=== PATIENT | male | born 1940 | race Caucasian/White ===

== ENCOUNTER 2024-03-18 16:53 | Emergency (ER) | payer OTHER, SELFPAY ==
[2024-03-18 17:00] VITALS: BP 122/70; PULSE 96; TEMP 36.7; O2SAT 96; BMI 19.5
--- NOTE | 2024-03-18 17:10 | US_ITS ---
The [address] [address] Patient Name: SUGAR AUCÑA MRN: [id number] date: 1940 Sex: M Assigned Patient Location: ER Current Patient Location: ED.MAIN Accession/Order Number: [id number] Exam Date: 03/18/2024 18:22 Report Date: 03/18/2024 21:17 At the request of: PHILIPPE GUERRA Procedure: US venous doppler LE RT ULTRASOUND OF THE LOWER EXTREMITY VENOUS RIGHT HISTORY: Edema and pain . COMPARISON: None. TECHNIQUE: Multiple sonographic images are performed using grayscale, color Doppler and spectral Doppler of the extremity to evaluate vein patency. FINDINGS: There is no evidence of thrombus within the visualized veins. There is adequate phasic and spontaneous flow. There is adequate compression. There is adequate augmentation. No evidence of DVT within the visualized veins of the extremity. No popliteal fluid collection. US/US venous doppler LE RT IMPRESSION: No evidence of DVT in the visualized veins . Electronically authenticated by: LAMAR PAUL Date: 03/18/2024 21:17
--- NOTE | 2024-03-18 20:40 | ED_ITS ---
HPI HPI - General Adult General Chief complaint: Extremity Problem, Nontraumatic Stated complaint: LOWER PAIN Time Seen by Provider: 03/18/24 16:57 Source: patient Mode of arrival: walk-in Limitations: no limitations History of Present Illness HPI narrative: 84-year-old male presents to the emergency department with complaint of swelling to his right lower extremity. He is currently under evaluation of foot drop with concern about injury to his peroneal nerve. Neurology is evaluating him, and noted the swelling and sent him in to rule out blood clot. Patient denies any pain. He does have some numbness to the top of the foot which has been ongoing over the past 5 weeks in accordance with the foot drop. Denies any chest pain, shortness of breath. Quality:?as above Severity:?mild Timing:?2-3 days Context: Normal setting and activity? Modifying factors:?none Associated symptoms: swelling, redness Related Data Home Medications ?Medication ?Instructions ?Recorded ?Confirmed Lactobacillus 1 tab PO DAILY 03/18/24 03/18/24 acidophilus-Lactbacill.bifidus 1 billion cell oral wafer citalopram 20 mg tablet (Celexa) 20 mg PO DAILY 03/18/24 03/18/24 coenzyme Q10 100 mg capsule (Co 100 mg PO DAILY 03/18/24 03/18/24 Q-10) diltiazem HCl 180 mg 180 mg PO DAILY 03/18/24 03/18/24 tablet,extended release 24 hr (Cardizem LA) fluoride (sodium) 1.1 % dental 1 applic dental DAILY 03/18/24 03/18/24 paste (PreviDent 5000 Booster Plus) nitroglycerin 0.4 mg sublingual 0.4 mg sublingual Q5M 03/18/24 03/18/24 tablet pantoprazole 40 mg tablet,delayed 40 mg PO DAILY 03/18/24 03/18/24 release (Protonix) Allergies Allergy/AdvReac Type Severity Reaction Status Date / Time Iodinated Contrast Media Allergy Intermediate Rash Verified 03/18/24 17:00 Penicillins Allergy Intermediate Rash Verified 03/18/24 17:00 Opioid HPI Opioid Management Most Recent Opioid Data: Last Pain Scale 8 03/18/24 17:43 Review of Systems ROS Constitutional Denies: fatigue or malaise Cardiovascular Reports: edema; Denies: chest pain Respiratory Denies: shortness of breath Musculoskeletal Reports: extremity swelling; Denies: extremity pain or joint pain Integumentary/Breast Reports: redness; Denies: skin tenderness Neurological Reports: weakness in extremities (foot drop, chronic right); Denies: numbness in extremities Endocrine Denies: fatigue Hematologic/Lymphatic Reports: other (no anticoag use) [facility] Medical History (Updated 03/18/24 @ 21:39 by BLANCO Estrada) History of chronic back pain ?Z87.39 - Personal history of other diseases of the musculoskeletal system and connective tissue (ICD-10) History of diverticulosis ?Z87.19 - Personal history of other diseases of the digestive system (ICD-10) History of asthma ?Z87.09 - Personal history of other diseases of the respiratory system (ICD- 10) History of depression ?Z86.59 - Personal history of other mental and behavioral disorders (ICD-10) Surgical History (Updated 03/18/24 @ 17:12 by Brian Hackett) History of hernia repair ?Z98.890 - Other specified postprocedural states (ICD-10) ?Z87.19 - Personal history of other diseases of the digestive system (ICD-10) History of esophagogastroduodenoscopy (EGD) ?Z98.890 - Other specified postprocedural states (ICD-10) History of colonoscopy ?Z98.890 - Other specified postprocedural states (ICD-10) History of abdominal aortic aneurysm (AAA) repair ?Z98.890 - Other specified postprocedural states (ICD-10) Exam Constitutional Vital Signs, click to edit/add: Last Vital Signs Temp 98.1 F 03/18/24 17:00 Pulse 96 H 03/18/24 17:00 Resp 16 03/18/24 17:00 BP 122/70 03/18/24 17:00 Pulse Ox 96 03/18/24 17:00 O2 Del Method Room Air 03/18/24 17:00 Documenting provider has reviewed patient's vital signs: yes Common normals: no apparent distress, oriented x3 and alert General appearance: well developed Respiratory Common normals: normal respiratory effort and clear to auscultation bilaterally Cardio Common normals: regular rate, regular rhythm and no murmurs Peripheral pulses: dorsalis pedis pulses present bilateral dopplerable Extremity Other: Patient has notable edema to his ankle into his foot with some mild, light redness noted. Swelling is not pitting. Range of motion is limited due to the foot drop in his right foot, chronic over the past 5 weeks. He does have some numbness to the top of the foot. Otherwise neurologically intact. Range of motion of his knee is full. Neuro Common normals: oriented x3, no focal motor deficits and no sensory deficits noted Sensorium/orientation: alert Psych Common normals: mental status grossly normal and thought process normal Thought process: normal thought process Course Reevaluation(s) Reevaluation #1: In ED course, patient expressed desire to be discharged to home. Results had not returned. Explained to patient that if he does have a blood clot in his leg, location may determine that he needs further workup, treatment. Expressed apologies for the length of time on the ultrasound report. Radiology was contacted and stated that they were behind approximately 2 hours on ultrasound readings. Patient stated to nursing that he did not want to wait any longer and patient signed out ama. Time: 20:40 Vital Signs Vital signs: Vital Signs Temperature 98.1 F 03/18/24 17:00 Pulse Rate 96 H 03/18/24 17:00 Respiratory Rate 16 03/18/24 17:00 Blood Pressure 122/70 03/18/24 17:00 Pulse Oximetry 96 03/18/24 17:00 Oxygen Delivery Method Room Air 03/18/24 17:00 Temperature 98.1 F 03/18/24 17:00 Pulse Rate 96 H 03/18/24 17:00 Respiratory Rate 16 03/18/24 17:00 Blood Pressure 122/70 03/18/24 17:00 Pulse Oximetry 96 03/18/24 17:00 Oxygen Delivery Method Room Air 03/18/24 17:00 Medical Decision Making [facility] Narrative Medical decision making narrative: This is an 84-year-old gentleman who presents emergency department for DVT evaluation of right lower extremity swelling which has been present over the past 2 to 3 days. Denies chest pain, shortness of breath. On, afebrile, vital signs are stable. Exam, nontoxic, well-appearing patient in no distress. He has diffuse, nonpitting swelling noted to his ankle and foot. There is some mild redness to the top of his foot. He has numbness to the top of his foot. He cannot dorsiflex his foot due to likely problems with his peroneal nerve. He is currently under evaluation with neurology for this. Nonpalpable dorsalis pedal pulses Dopplerable bilaterally. Favor right lower extremity swelling Arterial occlusion less likely based on history and physical exam Disposition ? The patient was discharged AGAINST MEDICAL ADVICE. He did not want to wait for his result despite being told that if he has serious blood clot he requires further workup, evaluation, treatment and could be life-threatening. Plan: Patient will be discharged to home AMA. Condition at time of disposition: stable ? Advised to follow up with primary provider. Advised to return for any worsening and/or development of new, concerning signs or symptoms PLEASE NOTE: Portions of the medical record may have been produced using electronic c software developer and may contain errors with respect to translation of words which may not have been identified prior to finalization of the chart. Discharge Plan Discharge Stand Alone Forms: Portal Instructions Chief Complaint: Extremity Problem, Nontraumatic Clinical Impression: Right leg swelling Patient Disposition: Left Against Medical Advice Prescriptions / Home Meds: No Action citalopram [Celexa] 20 mg tablet 20 mg PO DAILY coenzyme Q10 [Co Q-10] 100 mg capsule 100 mg PO DAILY diltiazem HCl [Cardizem LA] 180 mg tablet extended release 24 hr 180 mg PO DAILY Lactobacillus acidoph-L. bifid 1 billion cell wafer 1 tab PO DAILY Rx Instructions: administer (preferably) with milk nitroglycerin 0.4 mg tablet, sublingual 0.4 mg sublingual Q5M Rx Instructions: do not exceed 3 doses per episode pantoprazole [Protonix] 40 mg tablet,delayed release (DR/EC) 40 mg PO DAILY fluoride (sodium) [PreviDent 5000 Booster Plus] 1.1 % paste 1 applic dental DAILY Print Language: Angolan Referrals: SUGAR HARIRSON [Primary Care Provider] - 1 week Discharge Date/Time: 03/18/24 20:47
== END 2024-03-18 20:47 | disposition left against medical advice (07) ==
PROVIDERS: Emergency Provider Emergency Medicine; PCP Internal Medicine
DX: M79.89 Other specified soft tissue disorders (principal); Z53.29 Procedure and treatment not carried out because of patient's decision for other reasons
CPT/HCPCS: 93971; 99284

== ENCOUNTER 2025-02-13 13:55 | Emergency (ER) | payer OTHER, SELFPAY ==
--- OUTSIDE RECORDS SUMMARY | 2020-12-03 06:00 | XMS_ITS | Continuity of Care Document ---
Author Organization [facility] Address [address] [place] [address] Phone Care Team Providers Care Head Field Hockey Coach Name Role Phone Deng Bernard Unavailable Unavailable Procedures Procedure Date Moderna COVID Vaccine Admin Dose 2 Moderna COVID-19 Vaccine Moderna COVID Vaccine Admin Dose 1 Moderna COVID-19 Vaccine OFFICE/OUTPATIENT VISIT, [facility] [facility], [place] Advance Directives Directive Yes / No Effective Date File Name No Information Encounters Encounter Description Practice Location Reason(s) For Visit Diagnoses Date Provider Providers Copied on Encounter [facility], [address], [place], [id number], [place] tel:[phone] COVID ECHD No Information Deanna Ely. [address], [place], [id number], [place]. tel:[phone] [facility], [address], [place], [address], [place] tel:[phone] COVID ECHD No Information Viscdeanne Ely. [address], [place], [id number], [place]. tel:[phone] OFFICE/OUTPATI ENT VISIT, EST [facility], [address], [place], [id number], [place] tel:[phone] [facility] No Information Viscdeanne Ely. [address], [place], [id number], [place]. tel:[phone] Family History Family Member Type Diagnosis Age At Onset No Information Immunizations Vaccine Date Status Comments Moderna COVID administered Source: New Im munization Record Moderna COVID administered Source: New Im munization Record Payers Payer name Insurance type Covered republican ID Authoriza tion(s) Medicare PPS [id number] Medicare PPS [id number] Medicare PPS [id number] Social History Type Description Quantity Date Captured Comments Alcohol Use Details Unknown Caffeine Use Details Unknown Tobacco Use Status No Information Smoking Status No Information Sex Male Sexual Orientation Straight or heterosexual Gender Identity Male Chief Complaint And Reason For Visit No Information Reason For Referral Reason For Referral No Information History Of Present Illness Encounter Date Complaint History Of Prese nt Illness No Information Functional Status Date Functional Assessmen t No Information Instructions Date Instruction Additional Infor mation No Information Assessments Type Assessment Date No Information Patient Care Teams Name Effective Dates (start - stop) Status Members No Information
--- OUTSIDE RECORDS SUMMARY | 2024-12-29 11:00 | XMS_ITS ---
Author Organization [facility] Address [address] [place] [address] [address] [place] [address] Care Team Providers Care Licensed Surveyor Name Role Phone Ismael Morales MD Primary Care Provider UnavailHarish Byrne Unavailable [phone] REASON FOR VISIT rfc Encounters Encounter Location Date Provider Diagnosis [facility] [address] [place] [place] [address] 12/29/2024 Harish Floyd Plan Of Treatment Next Appt Details Provider Name:Harish keene, 03/30/2025 03:30:00 PM, [address] [place] [address] [address], [address], [place], [address], Progress Notes * Ismael ACUÑA GDOB:[birth year] (84 yo M)Acc No.[id number]:12/29/2024 Patient: Jeanie CHRISTINATERESODENISEIsmael Provider: Candelario Floyd DPM :1940 A ge:84 Y S ex:Male Date:12/29/2024 Phone: Address:[address] [place] [address] [address], [id number] Pcp:Ismael Morales MD Subjective: * Chief Complaints: * 1 . Rfc. * Medical History: Objective: * Vitals: Assessment: Plan: * Treatment: * Images: * Electronic signature of Prashanth Floyd DPM on 02/13/2025 at 02:01 PM EDT Sign off status: Pending * Provider: Candelario Floyd DPM Date: 12/29/2024 Generated for Brandyi west/Fajoanie/eTransmitting on: 02/13/2025 02:01 PM EDT
--- OUTSIDE RECORDS SUMMARY | 2025-02-13 14:01 | XMS_ITS | Clinical Summary ---
Author Organization [facility] Address [address] [place] [address] Care Team Providers Care Battery Parts Assembler Name Role Phone Ismael Morales MD Primary Care Provider [phone] Allergies Active Allergy Reactions Criticality Noted Date Comments Contrast Dye Swelling High 11/27/2011 Penicillins Swelling 11/27/2011 Medications citalopram (CELEXA) 20 mg ORAL tablet Take 1 tablet by mouth once daily. 0 11/27/2011 Active Omeprazole 40 mg capsule Take 40 mg by mouth once daily. 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 PUD (peptic ulcer disease) 12/31/2015 Depression 12/31/2015 Lumbosacral spondylosis without myelopathy 01/02 Lumbago 01/03/2012 Family History Medical History Relation Comments Heart Father Hypertension Father lung cancer [Other] Father Cancer Mother Hyperlipidemia Mother Relation Status Comments Father Mother Social History Tobacco Use Types Packs/Day Years Used Date Smoking Tobacco: Some Days Cigarettes Alcohol Use Standard Drinks/Week Comments No 0 (1 standard drink = 0.6 oz pur e alcohol) Sex and Gender Information Value Date Recorded Sex Assigned at Not on file Legal Sex Male 8:08 AM EST Gender Identity Not on file Sexual Orientation Not on file 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 Not on file Not on file Not on file Last Filed Vital Signs Vital Sign Reading Time Taken Comments Blood Pressure 160/91 01/17/2017 4:30 PM EDT Pulse 81 01/17/2017 4:30 PM EDT Temperature 36.6 C (97.8 F) 01/17/2017 4:30 PM EDT Respiratory Rate 18 01/17/2017 4:30 PM EDT Oxygen Saturation 97% 01/09/2017 2:59 PM EDT Inhaled Oxygen Concentration - - Weight 77.1 kg (170 lb) 01/09/2017 2:59 PM EDT Height 172.1 cm (5' 7.76 ) 01/09/2017 2:59 PM ED T Body Mass Index 26.03 01/09/2017 2:59 PM EDT Plan of Treatment Health Maintenance Due Date Last Done Comments Anxiety Screening 02/22/1960 Depression Screening 02/22/1960 DTaP,Tdap,Td Vaccine (1 - Tdap) 1961 Pneumococcal Vaccine: 50+ (1 of 1 - PCV) 02/22/1992 Shingrix Vaccine (1 of 2) 02/22/1992 RSV Vaccine (1 - 1-dose 75+ series) 2017 Diabetes Screening 12/30/2018 12/31/2015 Covid-19 Vaccine ( season) 2024 Advance Directive Discussion 08/27/2024 Influenza Vaccine (Season Ended) 2025 Procedures Procedure Name Priority Date/Time Associated Diagnosis Comments COMPREHENSIVE METABOLIC PANEL Routine 12/31/2015 3:03 PM EDT MGUS (monoclonal gammopathy of unknown significance) from Last 3 Months or Most Recently Relevant to Health Maintenance Results * COMP METABOLIC PANEL (12/31/2015 3:03 PM EDT) Pathologist [facility] Protein, Total 7.2 6.0 - 8.4 g/dL 01/01/2016 2:58 AM EDT [facility] Albumin 4.2 3.5 - 5.0 g/dL 01/01/2016 2:58 AM EDT [facility] Calcium 9.3 8.5 - 10.5 mg/dL 01/01/2016 2:58 AM EDT [facility] Bilirubin, Total 0.2 0.0 - 1.5 mg/dL 01/01/2016 2:58 AM EDT [facility] Alkaline Phosphatase 88 40 - 150 U/L 01/01/2016 2:58 AM EDT [facility] AST 19 7 - 40 U/L 01/01/2016 2:58 AM EDT [facility] Glucose 92 65 - 100 mg/dL 01/01/2016 2:58 AM EDT [facility] BUN 15 10 - 25 mg/dL 01/01/2016 2:58 AM EDT [facility] Creatinine 1.19 0.70 - 1.40 mg/dL 01/01/2016 2:58 AM EDT [facility] Sodium 136 135 - 146 mmol/L 01/01/2016 2:58 AM EDT [facility] Potassium 4.7 3.5 - 5.0 mmol/L 01/01/2016 2:58 AM EDT [facility] Chloride 99 98 - 110 mmol/L 01/01/2016 2:58 AM EDT [facility] CO2 25 23 - 32 mmol/L 01/01/2016 2:58 AM [facility] Anion Gap 12 0 - 15 mmol/L 01/01/2016 2:58 AM [facility] ALT 12 5 - 50 U/L 01/01/2016 2:58 AM [facility] eGFR- >60 01/01/2016 2:58 AM [facility] eGFR-All Other Races 60 . 01/01/2016 2:58 AM [facility] Comment: eGFR (Estimated GFR) Units of measure: mL/min/1.73 meters squared eGFR is derived from the reexpressed MDRD Study equation using the following parameters: serum creatinine, age, gender and race. The creatinine assay has been calibrated to be traceable to IDMS. An eGFR <60 mL/min/1.73m2 for >3 months is consistent with chronic kidney disease. Refer to KDOQI guidelines for clinical interpretation. In patients with unstable renal function, e.g. those with acute kidney injury, the eGFR may not accurately reflect actual GFR. Blood specimen (specimen) BLOOD SPECIMEN / Unknown 12/31/2015 3:03 PM EDT 12/31/2015 3:05 PM EDT us Micheal Blount MD LABORATORY Final Result [facility] [address] [place] [address] from Last 3 Months or Most Recently Relevant to Health Maintenance Insurance [facility] MEDICARE Care Teams Battery Parts Assembler Relationship Specialty Start Date End Date Ismael Morales MD [address] [facility] [address] [place] [address] PCP - General Internal Medicine 10/09/11
--- OUTSIDE RECORDS SUMMARY | 2025-02-13 14:01 | XMS_ITS | Encounter Summary ---
Author Organization [facility] Address [address] [facility] [place] [address] Care Team Providers Care Fire Range Technician Name Role Phone Ismael Morales MD Unavailable [phone] Ismael Morales MD Primary Care Provider [phone] Saúl Wiggins MD Unavailable [phone] Harish Floyd MD Unavailable [phone] Jelly Stokes LPN Unavailable [phone] Reason for Visit * Reason Onset Date Comments Med Refill 01/30/2025 Encounter Details Date Type Department Care Team (Late st Contact Info) Description 01/30/2025 Refill [facility] [address] [facility] [address] [place] [id number] Angela Gupta LPN Depression, unspecified depression type Social History Tobacco Use Types Packs/Day Years Used Date Smoking Tobacco: Every Day Cigarettes Started: 1975 Alcohol Use Standard Drinks/Week Comments Not Currently 0 (1 standard drink = 0.6 oz pure alcohol) caffeine; 6 cups of coffee per day PHQ-2 Answer Date Recorded Patient Health Questionnaire-2 Score 2 09/17/2024 Sex and Gender Information Value Date Recorded Sex Assigned at Not on file Legal Sex Male 6:34 PM EDT Gender Identity Not on file Sexual Orientation Not on file 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, 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 Not on file Not on file Not on david e documented as of this encounter Plan of Treatment Not on file documented as of this encounter Visit Diagnoses Diagnosis Depression, unspecified depression type documented in this encounter Care Teams Fire Range Technician Relationship Specialty Start Date End Date Ismael Morales MD [address] [place] [address] PCP - Devoted 08/27/20 Ismael Morales MD [address] [place] [address] PCP - General Internal Medicine 01/18/23 Saúl Wiggins MD [address] [facility] [address] [place] [address] Referring Physician Cardiology 09/24/24 Harish Floyd MD [facility] [place] [address] Referring Physician Podiatry 09/24/24 Jelly Stokes LPN [address] [place] [address] Licensed Practical Nurse Family Medicine 09/24/24 Sofía Bedolla OD Ophthalmology 09/12/23 documented as of this encounter
--- OUTSIDE RECORDS SUMMARY | 2025-02-13 14:01 | XMS_ITS | Encounter Summary ---
Author Organization [facility] Address [address] [place] [address] Care Team Providers Care Jewel Oliving Machine Operator Name Role Phone Ismael Morales MD Primary Care Provider [phone] Source Comments In the event this information is protected by the Federal Confidentiality of Alcohol and Drug AbusePatient Records regulations: The Federal rules restrict any use of the information to criminally investigate or prosecute any alcohol or drug abuse patient.[facility] Encounter Details Date Type Department Care Team (Late st Contact Info) Description 05/01/2012 Patient Msg Medical Records [address] [place] [id number] Provider, [facility] RE: Patient Registration Completed Social History Tobacco Use Types Packs/Day Years Used Date Smoking Tobacco: Never Alcohol Use Standard Drinks/Week Comments No 0 (1 standard drink = 0.6 oz pur e alcohol) Sex and Gender Information Value Date Recorded Sex Assigned at Not on file Legal Sex Male 8:08 AM EST Gender Identity Not on file Sexual Orientation Not on file 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
--- OUTSIDE RECORDS SUMMARY | 2025-02-13 14:01 | XMS_ITS | Patient Health Record ---
Author Organization [facility] [employer] Address [facility] [place] [address] Care Team Providers Care Customer Success Director Name Role Phone Ismael Morales MD Primary Care Provider UnavailHarish Byrne Unavailable [phone] Allergies Allergen (clinical drug ingredient) Drug/Non Drug Allergy documented on EMR Reaction Allergy Type Onset Date Status Dye [employer] [employer] Blue 1 Unknown Drug Allergy Ac tive Penicillin Unknown Drug Allergy Active Reason For Referral No Information Medications Medication SIG (Take, Route, Frequency, Duration) Notes Start Date End Date Status Pantoprazole Sodium 40 MG 1 tablet Orall y Once a day for 30 day(s) Active Paxil 30 MG 1 tablet in the morn ing Orally Once a day Active Carvedilol 6.25 MG 1 tablet with food O rally Twice a day Active Vitamin D3 50 MCG (1999) 1 capsule Or ally Once a day for 30 day(s) Active CoQ10 200 MG as directed Orally Active Probiotic - as directed Orally Active Immunizations Vaccine Route Administration Date Status Comme nts Influenza Unknown 05/02/2021 Administered Social History Tobacco Use: Social History Observation Description Date Details (start date - stop date) Current Smoker NA - NA tobacco use Question Answer Notes Patient is a: current smoker 3/4 pack a day Problems Problem Type SNOMED Code ICD Code Onset Dates Problem Status W/U Status Risk Notes Problem Essential hypertension (44413082) Essential (primary) hypertension (I10) Active confirmed Problem Pain in limb (68822985) Pain in right toe(s) (M79.674) Active confirmed Problem Pain in limb (41227252) Pain in left toe(s) (M79.675) Active confirmed Problem Tinea unguium (463953811) Tinea unguium (B35.1) Active confirmed Vital Signs Blood pressure diastolic 74 mm Hg 12/29/2024 Height 68 in 12/29/2024 Blood pressure systolic 126 mm Hg 12/29/2024 Weight 140 lbs 12/29/2024 BMI 21.28 12/29/2024 Encounters Encounter Location Date Provider Diagnosis [facility] [place] [address] 06/26/2024 Harish Floyd Pain in left toe(s) M79.675 ; Pain in right toe(s) M79.674 and Tinea unguium B35.[address] [facility] [place] [address] 09/29/2024 Harish Floyd Pain in left toe(s) M79.675 ; Pain in right toe(s) M79.674 and Tinea unguium B35.[address] [facility] [place] [address] 12/29/2024 Harish Floyd Pain in left toe(s) M79.675 ; Pain in right toe(s) M79.674 and Tinea unguium B35.1 Assessments Encounter Date Diagnosis (ICD Code) Assessment Notes Treatment Notes Treatment Clinical Notes Section Notes 06/26/2024 Pain in left toe(s) (ICD-10 - M79.675) 09/29/2024 Pain in left toe(s) (ICD-10 - M79.675) 12/29/2024 Pain in left toe(s) (ICD-10 - M79.675) 12/29/2024 Pain in right toe(s) (ICD-10 - M79.674) 06/26/2024 Pain in right toe(s) (ICD-10 - M79.674) 09/29/2024 Pain in right toe(s) (ICD-10 - M79.674) 06/26/2024 Tinea unguium (ICD-10 - B35.1) 12/29/2024 Tinea unguium (ICD-10 - B35.1) 09/29/2024 Tinea unguium (ICD-10 - B35.1) Plan Of Treatment Next Appt Details Provider Name:Harish keene, 03/30/2025 03:30:00 PM, [address], [address], [place], [address], Insurance Providers Payer Name Payer Address Payer Phone Subscriber Number Group Number Insured Name Patient Relationship to Insured Coverage Start Date Coverage End Date [employer] [address] [place] [phone] [id number] Ismael Sue Self - patient is the insured Medical (General) History Medical History History ICD Code heart disease lung disease stomach ulcer high blood pressure rheumatoid arthritis GERD hiatal hernia fibromyalgia Neuropathy Surgical History Surgery Date(Month/Year) hernia 05/2021 AAA bowel torsion 01/17 Hospitalization History Reason Date(Month/Year) see sx hx hernia 2020
--- OUTSIDE RECORDS SUMMARY | 2025-02-13 14:01 | XMS_ITS | Clinical Summary ---
Author Organization [facility] Address [address] [place] [address] Care Team Providers Care Code Clerk Name Role Phone Ismael Morales MD Unavailable [phone] Ismael Morales MD Primary Care Provider [phone] Saúl Wiggins MD Unavailable Harish Floyd MD Unavailable [phone] Jelly Stokes LPN Unavailable [phone] Allergies Active Allergy Reactions Criticality Noted Date Comments Acetaminophen-Codeine Unknown Low 04/06/2021 Codeine Low 01/04/2024 Other Reaction(s): Hallucinating Iodinated Contrast Media Swelling High 11/27/2011 Lisinopril Low 01/22/2024 Penicillins Swelling Low 11/27/2011 Statins Unknown Low 01/24/2023 Medications coenzyme Q-10 100 MG capsule Take 2 capsules by mouth 1 (one) time each day. Active Lactobacillus (Probiotic Acidophilus) capsule Take 1 capsule by mouth 1 (one) time each day. Active nitroglycerin (Nitrostat) 0.[address] 0.4 mg under the tongue every 5 (five) minutes if needed for chest pain. Active PreviDent 5000 Booster Plus 1.1 % paste Take 1 strip by mouth 1 (one) time each day. 3 Active pantoprazole (ProtoNix) 40 MG EC tabletIndicatio ns:Gastro-esoph ageal reflux disease without esophagitis TAKE 1 TABLET BY MOUTH EVERY DAY 100 tablet 3 4 Active carvedilol (Coreg) 6.25 MG tablet Take 6.25 mg by mouth in the morning and 6.25 mg before bedtime. 4 Active triamcinolone (Kenalog) 0.1 % cream Apply 1 gram daily to scaly skin on trunk and extremities for 2 weeks as needed for flares of eczema 5 Active albuterol HFA 90 mcg/act inhaler Inhale 2 puffs every 4 (four) hours if needed for wheezing Active PARoxetine (Paxil) 30 MG tabletIndicatio ns:Depression, unspecified depression type Take 1 tablet (30 mg) by mouth in the morning. 30 tablet 5 5 025 Active PARoxetine (Paxil) 30 MG tabletIndicatio ns:Depression, unspecified depression type Take 1 tablet (30 mg) by mouth in the morning. 30 tablet 5 4 025 Discontin ued(Reord er) Active Problems Problem Noted Date Diagnosed Date Statin intolerance 12/26/2024 Thrombocytopenia 10/08/2024 Adverse reaction to statin medication 10/08/2024 Major depressive disorder, recurrent, moderate 0 10/08/2024 Mild aortic stenosis 02/16/2024 History of diverticulitis 01/30/2024 Iliac artery aneurysm 01/24/2023 Nicotine dependence, cigarettes, uncomplicated 0 01/24/2023 Chronic systolic congestive heart failure 2020 Obstructive sleep apnea syndrome 12/09/2020 Gastroesophageal reflux disease 09/26/2020 PAF (paroxysmal atrial fibrillation) 09/14/2020 Solitary pulmonary nodule 06/22/2020 Chronic obstructive pulmonary disease 06/12/2020 Mitral regurgitation 10/01/2019 Coronary artery disease 01/21/2018 MGUS (monoclonal gammopathy of unknown significa nce) 12/31/2015 PUD (peptic ulcer disease) 12/31/2015 Abdominal aortic aneurysm without rupture 2014 Mixed hyperlipidemia 05/28/2015 Primary osteoarthritis involving multiple joints 05/28/2015 Lumbosacral spondylosis without myelopathy 01/02 Resolved Problems Problem Noted Date Diagnosed Date Resolved Date Acute respiratory failure with hypoxia 01/30/2024 01/30/2024 Acute hyponatremia 01/30/2024 Complete obstruction of small intestine 01/30/2024 01/30/2024 Incarcerated inguinal hernia 01/30/2024 01/30/2024 Recurrent right inguinal hernia 01/30/2024 01/30/2024 Asthma 01/24/2023 09/14/2023 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 09/14/2023 Diverticulitis 01/24/2023 09/14/2023 Increased frequency of urination 01/24/2023 09/14/2023 Memory loss 01/24/2023 09/14/2023 Nocturia 01/24/2023 09/14/2023 Emphysema, unspecified 04/05/202109/14 Diverticulitis of colon 09/18/202008/27 Hydronephrosis 08/31/2020 09/14/2023 Hydroureter 08/31/2020 09/14/2023 Perforated diverticulum of large intestine 08/31/2020 09/14/2023 Meralgia paresthetica 04/12/20202023 Ischemic cardiomyopathy 10/06/201908/27 Depression 12/31/2015 09/14/2023 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 [address] Jelly Stokes LPN 01/30/2025 Refill [facility] [address] [facility] [address] [place] [address] Angela Gupta LPN Depression, unspecified depression type 12/22/2024 11:15 AM EDT Ancillary Procedure [facility] XRAY [address] [facility] [address] [place] [address] 12/22/2024 10:15 AM EDT Office Visit [facility] [address] [facility] [address] [place] [address] Ismael Morales MD Thrombocytopenia (Primary Dx); SOB (shortness of breath); Ulnar neuropathy of left upper extremity; Major depressive disorder, recurrent, moderate (HCC) 12/22/2024 Travel 12/17/2024 Travel 12/16/2024 Patient Outreach [facility] [address] [place] [address] StokesJellyHÉCTOR 11/13/2024 3:30 PM EDT Office Visit [facility] [address] [place] [address] Ismael Morales MD Thrombocytopenia (Primary Dx) 11/13/2024 Travel from Last 3 Months Immunizations Immunization Administration Dates Next Due Influenza Whole 12/22/2002 Influenza, High Dose Seasona l, Preservative Free 07/31/2022,05/23/2021,06/28/2017,06/26,05/20/2014 Influenza, High-dose Seasona l, Quadrivalent, Preservative Free 05/21/2023 Influenza, Unspecified 05/27/2021,05/27/2020 Influenza, seasonal, injecta ble, preservative free 06/01/2015 Influenza, seasonal, intrade rmal, preservative free 05/07/2013 Influenza, trivalent, adjuvanted 05/28/2020,04/27,07/02/2018 Moderna SARS-CoV-2 Vaccination 12/02/2020,2020 Pneumococcal Conjugate PCV 13 06/01/2015 Pneumococcal Polysaccharide PPSV23 05/31/2009 RSV, recombinant, protein icsneros bunit RSVpreF, adjuvant reconstitu, 120mcg/0.5mL, PF (Arexvy) 05/21/2023 Td (adult), unspecified 12/22/2002 Zoster, live 08/27/2014,10/27/2010 Family History Medical History Relation Name Comments Heart disease Father Hypertension Father Lung cancer Father Cancer Mother Hyperlipidemia Mother Relation Name Status Comments Father Mother Social History Tobacco Use Types Packs/Day Years Used Date Smoking Tobacco: Every Day Cigarettes Started: 1973 Tobacco Cessation:Ready to Q uit: Not Asked; Counseling Given: Not Answered Alcohol Use Standard Drinks/Week Comments Not Currently [...] 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, 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 Not on file Not on file Not on david e Last Filed Vital Signs Vital Sign Reading Time Taken Comments Blood Pressure 132/78 12/22/2024 10:07 AM EDT Pulse 69 12/22/2024 10:07 AM EDT Temperature 36.4 C (97.5 F) 01/30/2024 9:42 AM EDT Respiratory Rate 16 03/18/2024 2:25 PM EDT Oxygen Saturation 97% 12/22/2024 10:07 AM EDT Inhaled Oxygen Concentration - - Weight 62.4 kg (137 lb 8 oz) 12/22/2024 10:07 AM EDT Height 170.2 cm (5' 7 ) 12/22/2024 10:07 AM EDT Body Mass Index 21.54 12/22/2024 10:07 AM EDT Plan of Treatment Health Maintenance Due Date Last Done Comments Pneumococcal Vaccine: 65+ Years Completed 5, 05/31/2009 Influenza Vaccine Completed 06/18/2024, , 07/31/2022, Additional history exists Procedures Procedure Name Priority Date/Time Associated Diagnosis Comments XR CHEST 2 VIEWS Routine 12/22/2024 11:3 1 AM EDT SOB (shortness of breath) HCV NEG INTERP REFLEX Routine 12/01/2024 1:16 PM EDT HEPATITIS PANEL, ACUTE Routine 12/01/2024 1:16 PM EDT Thrombocytopenia CBC (INCLUDES DIFF/PLT) Routine 12/01/2024 1:16 PM EDT Thrombocytopenia from Last 3 Months Results * XR chest 2 views (12/22/2024 11:31 AM EDT) Anatomical Region Laterality Modality Chest Radiographic Peggy ging 12/22/2024 12:4 3 PM EDT Narrative 12/22/2024 12:43 PM EDT Title of exam: XR CHEST 2 VIEWS Reason for exam: Shortness of breath Comparison: None 2 images. The cardiac and mediastinal silhouettes are normal for size and position. Thoracic aorta is tortuous with dense atherosclerosis. There is hyperinflation and flattening of the hemidiaphragms bilaterally. No large pleural effusion, focal lung opacity or pneumothorax. Regional skeleton and pleural surfaces without acute change. Chronic appearing right-sided rib fractures are noted with callus formation. IMPRESSION: 1. Emphysema versus air trapping. 2. Chronic right-sided chest wall trauma. 3. Marked atherosclerosis and tortuosity of the thoracic aorta. Dictated on: 12/22/2024 10:40 AM 12/22/2024 9:38 AM This report has been electronically signed and approved by the interpreting Radiologist. This report is generated using voice recognition reporting ([employer]). On occasion, [email or web address] erroneously drops words from the report or replaces the spoken word with a similar sounding word. Please call with any questions/concerns regarding the report. Procedure Note Justin White MD - 12/22/2024 Title of exam: XR CHEST 2 VIEWS Reason for exam: Shortness of breath Comparison: None 2 images. The cardiac and mediastinal silhouettes are normal for size andposition. Thoracic aorta is tortuous with dense atherosclerosis. There ishyperinflation and flattening of the hemidiaphragms bilaterally. No largepleural effusion, focal lung opacity or pneumothorax. Regional skeletonand pleural surfaces without acute change. Chronic appearing right-sidedrib fractures are noted with callus formation. IMPRESSION: 1. Emphysema versus air trapping. 2. Chronic right-sided chest wall trauma. 3. Marked atherosclerosis and tortuosity of the thoracic aorta. Dictated on: 12/22/2024 10:40 AM 12/22/2024 9:38 AM This report has been electronically signed and approved by theinterpreting Radiologist. This report is generated using voice recognition reporting ([employer]).On occasion, [email or web address] erroneously drops words from the report orreplaces the spoken word with a similar sounding word. Please call withany questions/concerns regarding the report. us Ismael Morales MD IMG XR PROCEDURES Final Result * HCV Neg Interp Reflex (12/01/2024 1:16 PM EDT) [facility] HCV Neg Interp Comment [facility] Comment: Not infected with HCV unless early or acute infection is suspected (which may be delayed in an immunocompromised individual), or other evidence exists to indicate HCV infection. 12/01/2024 1:16 PM EDT 12/01/2024 Narrative [facility] - 12/02/2024 6:06 AM EDT Performed at: 01 - [address] [id number] Review Consultant: Marques Gentile PhD, Phone: [phone] Ismael Morales MD LAB BLOOD ORDERABLES Final Resu lt Performing Organization Address [facility] Co de Phone Number [facility] * Hepatitis panel, acute (12/01/2024 1:16 PM EDT) [facility] Hep A IgM Ab Negative Negative [facility] Comment: A negative anti-HAV IgM result suggests no recent or current HAV infection. Hep B Surf Ag Scr Negative Negative [facility] Hep B Core IgM Ab Negative Negative [facility] HCV Ab Non Reactive Non Reactive [facility] Blood Venous blood specimen / Unknown 12/01/2024 1:16 PM EDT 12/01/2024 Narrative [facility] - 12/02/2024 6:06 AM EDT Performed at: [address] [id number] Review Consultant: Marques Gentile PhD, Phone: [phone] Ismael Morales MD LAB BLOOD ORDERABLES Final Resu lt Performing Organization Address City/[facility]/ZIP Co de Phone Number [facility] * (ABNORMAL) CBC and differential (12/01/2024 1:16 PM EDT) [facility] WBC 5.6 3.4 - 10.8 x10E3/uL [facility] RBC 5.22 4.14 - 5.80 x10E6/uL [facility] Hgb 15.0 13.0 - 17.7 g/dL [facility] Hct 47.5 37.5 - 51.0 % [facility] MCV 91 79 - 97 fL [facility] MCH 28.7 26.6 - 33.0 pg [facility] MCHC 31.6 31.5 - 35.7 g/dL [facility] RDW 12.9 11.6 - 15.4 % [facility] Platelets 127(L) 150 - 450 x10E3/uL [facility] Neutrophils 50 Not Estab. % [facility] Lymphs 40 Not Estab. % [facility] Monocytes 8 Not Estab. % [facility] Eos 1 Not Estab. % [facility] Basos 1 Not Estab. % [facility] Neutrophils Abs 2.8 1.4 - 7.0 x10E3/uL [facility] Lymphs Abs 2.2 0.7 - 3.1 x10E3/uL [facility] MonocytesAbs 0.5 0.1 - 0.9 x10E3/uL [facility] Eos Abs 0.1 0.0 - 0.4 x10E3/uL [facility] Baso Abs 0.1 0.0 - 0.2 x10E3/uL [facility] Immature Granulocytes 0 Not Estab. % [facility] Immature Grans Abs 0.0 0.0 - 0.1 x10E3/uL [facility] Blood Venous blood specimen / Unknown 12/01/2024 1:16 PM EDT 12/01/2024 Narrative [facility] - 12/02/2024 6:06 AM EDT Performed at: - [facility] [address] [id number] Review Consultant: Marques Gentile PhD, Phone: [phone] us Ismael Morales MD LAB BLOOD ORDERABLES Final Resu lt [facility] from Last 3 Months Insurance [facility] Care Teams Code Clerk Relationship Specialty Start Date End Date Ismael Morales MD [address] [place] [address] PCP - Devoted 08/27/20 Ismael Morales MD [address] [place] [address] PCP - General Internal Medicine 01/18/23 Saúl Wiggins MD [address] [facility] [address] [place] [address] Referring Physician Cardiology 09/24/24 Harish Floyd MD [facility] [place] [address] Referring Physician Podiatry 09/24/24 Jelly Stokes LPN [address] [place] [address] Licensed Practical Nurse Family Medicine 09/24/24 Sofía Bedolla OD Ophthalmology 09/12/23
--- OUTSIDE RECORDS SUMMARY | 2025-02-13 14:01 | XMS_ITS | Encounter Summary ---
Author Organization [facility] Address [address] [place] [address] Care Team Providers Care Information Delivery Analyst Name Role Phone Sugar Morales MD Unavailable [phone] Sugar Morales MD Primary Care Provider [phone] Brandon Wiggins MD Unavailable [phone] Harish Floyd MD Unavailable [phone] Jelly Stokes LPN Unavailable [phone] Encounter Details Date Type Department Care Team (Late st Contact Info) Description 07/03/2024 Clinisync Result Encounter [facility] External Department Unsolicited Provider, Generic External Data Social History Tobacco Use Types Packs/Day Years Used Date Smoking Tobacco: Every Day Cigarettes Started: 1975 Alcohol Use Standard Drinks/Week Comments Not Currently 0 (1 standard drink = 0.6 oz pure alcohol) caffeine; 6 cups of coffee per day Sex and Gender Information Value Date Recorded Sex Assigned at Not on file Legal Sex Male 6:34 PM EDT Gender Identity Not on file Sexual Orientation Not on file 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, 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 Not on file Not on file Not on david e documented as of this encounter Plan of Treatment Not on file documented as of this encounter Procedures Procedure Name Priority Date/Time Associated Diagnosis Comments TRANSTHORACIC ECHO (TTE) LIMITED 07/03/2024 1:48 PM EST documented in this encounter Results * Transthoracic echo (TTE) limited (07/03/2024 1:48 PM EST) Anatomical Region Laterality Modality Heart Ultrasound 07/03/2024 1:48 PM EST Narrative 07/04/2024 6:25 PM EST [facility] [address] [facility] [address], [address], [place] [address] TRANSTHORACIC ECHOCARDIOGRAM REPORT Patient Name: SUGAR PINAMALATHIDENISE Reading Physician: [id number] Brandon Wiggins MD, [facility] Study Date: 07/03/2024 Ordering Provider: [id number] BRANDON WIGGINS MRN/PID: [id number] Fellow: Nurse: Date of /Age: 6 1940 / 84 years Test Operator: Sangita Morrell RDCS, RVT Gender Assigned at Additional Staff: : Height: 175.26 cm Admit Date: Weight: 57.15 kg Admission Status: BSA / BMI: 1.70 m2 / 18.61 Department Location: [facility] kg/[address] Blood Pressure: 130 /70 mmHg Study Type: TRANSTHORACIC ECHO (TTE) LIMITED Diagnosis/ICD: Atherosclerotic heart disease of [place] coronary artery without angina pectoris-I25.10; 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 PHYSICIAN INTERPRETATION: Left Ventricle: Left ventricular ejection fraction is moderately decreased, by visual estimate at 30%. There is severe eccentric left ventricular hypertrophy. Wall motion is abnormal. The left ventricular cavity size is mildly dilated. There is mild increased septal and normal posterior left ventricular wall thickness. Left ventricular diastolic filling was not assessed. Severe hypokinesis involving the entire inferior and lateral valdez. Left Atrium: The left atrium is mildly dilated. Right Ventricle: The right ventricle is normal in size. There is normal right ventricular global systolic function. Right Atrium: The right atrium is normal in size. Aortic Valve: The aortic valve is trileaflet. There is moderate aortic valve cusp calcification. Aortic valve regurgitation was not assessed. Mitral Valve: The mitral valve is moderately thickened. Mitral valve regurgitation was not assessed. Tricuspid Valve: The tricuspid valve is structurally normal. Tricuspid regurgitation was not assessed. Pulmonic Valve: The pulmonic valve is structurally normal. The pulmonic valve regurgitation was not assessed. Pericardium: No pericardial effusion noted. Aorta: The aortic root is normal. Systemic Veins: The inferior vena cava was not assessed. CONCLUSIONS: 1. Left ventricular ejection fraction is moderately decreased, by visual estimate at 30%. 2. Abnormal wall motion. 3. Left ventricular cavity size is mildly dilated. 4. Severe hypokinesis involving the entire inferior and lateral valdez. 5. There is normal right ventricular global systolic function. 6. The mitral valve is moderately thickened. 7. There is moderate aortic valve cusp calcification. QUANTITATIVE DATA SUMMARY: 2D MEASUREMENTS: Normal Ranges: Ao Root d: 3.20 cm (2.0-3.7cm) LAs: 4.10 cm (2.7-4.0cm) RVIDd: 2.95 cm (0.9-3.6cm) IVSd: 1.22 cm (0.6-1.1cm) LVPWd: 0.93 cm (0.6-1.1cm) LVIDd: 6.11 cm (3.9-5.9cm) LVIDs: 5.39 cm LV Mass Index: 165.0 g/m2 LV % FS 11.8 % LV SYSTOLIC FUNCTION BY 2D PLANIMETRY (MOD): Normal Ranges: EF-A4C View: 36 % (>=55%) EF-A2C View: 28 % EF-Biplane: 31 % EF-Visual: 30 % LV EF Reported: 30 % AORTIC VALVE: Normal Ranges: LVOT Diameter: 2.40 cm (1.8-2.4cm) [id number] Brandon Wiggins MD, [facility] Electronically signed on 07/04/2024 at 6:25:25 PM Final Procedure Note Radiology, Radiologist, - 07/04/[address], Suite [facility], [place] [address] TRANSTHORACIC ECHOCARDIOGRAM REPORT Patient Name: SUGAR Smith Physician: Josselin Juan FACC Study Date: 07/03/2024 Ordering Provider: JOSSELIN WIGGINS MRN/PID: [id number] Fellow: Nurse: Date of /Age: 6 1940 / 84 years Test Operator: Davis WRIGHT RVT Gender Assigned at M Additional Staff: : Height: 175.26 cm Admit Date: Weight: 57.15 kg Admission Status: BSA / BMI: 1.70 m2 / 18.61 Department Location: [facility]/[address] Blood Pressure: 130 /70 mmHg Study Type: TRANSTHORACIC ECHO (TTE) LIMITED Diagnosis/ICD: Atherosclerotic heart disease of [place] coronary arterywithout angina pectoris-I25.10; Ischemic cardiomyopathy-I25.5 Indication: Aortic Stenosis, Paroxysmal Atrial Fibrillation,Hyperlipidemia, PTCA-2020, Tobacco Abuse, AAA-EVAR, CKD-Stage III,Noncompliance CPT Codes: Echo Limited-44167 Study Detail: The following Echo studies were performed: 2D and M-Mode. PHYSICIAN INTERPRETATION: Left Ventricle: Left ventricular ejection fraction is moderatelydecreased, by visual estimate at 30%. There is severe eccentric leftventricular hypertrophy. Wall motion is abnormal. The left ventricularcavity size is mildly dilated. There is mild increased septal and normalposterior left ventricular wall thickness. Left ventricular diastolicfilling was not assessed. Severe hypokinesis involving the entire inferiorand lateral valdez. Left Atrium: The left atrium is mildly dilated. Right Ventricle: The right ventricle is normal in size. There is normalright ventricular global systolic function. Right Atrium: The right atrium is normal in size. Aortic Valve: The aortic valve is trileaflet. There is moderate aorticvalve cusp calcification. Aortic valve regurgitation was not assessed. Mitral Valve: The mitral valve is moderately thickened. Mitral valveregurgitation was not assessed. Tricuspid Valve: The tricuspid valve is structurally normal. Tricuspidregurgitation was not assessed. Pulmonic Valve: The pulmonic valve is structurally normal. The pulmonicvalve regurgitation was not assessed. Pericardium: No pericardial effusion noted. Aorta: The aortic root is normal. Systemic Veins: The inferior vena cava was not assessed. CONCLUSIONS: 1. Left ventricular ejection fraction is moderately decreased, by visualestimate at 30%. 2. Abnormal wall motion. 3. Left ventricular cavity size is mildly dilated. 4. Severe hypokinesis involving the entire inferior and lateral valdez. 5. There is normal right ventricular global systolic function. 6. The mitral valve is moderately thickened. 7. There is moderate aortic valve cusp calcification. QUANTITATIVE DATA SUMMARY: 2D MEASUREMENTS: Normal Ranges: Ao Root d: 3.20 cm (2.0-3.7cm) LAs: 4.10 cm (2.7-4.0cm) RVIDd: 2.95 cm (0.9-3.6cm) IVSd: 1.22 cm (0.6-1.1cm) LVPWd: 0.93 cm (0.6-1.1cm) LVIDd: 6.11 cm (3.9-5.9cm) LVIDs: 5.39 cm LV Mass Index: 165.0 g/m2 LV % FS 11.8 % LV SYSTOLIC FUNCTION BY 2D PLANIMETRY (MOD): Normal Ranges: EF-A4C View: 36 % (>=55%) EF-A2C View: 28 % EF-Biplane: 31 % EF-Visual: 30 % LV EF Reported: 30 % AORTIC VALVE: Normal Ranges: LVOT Diameter: 2.40 cm (1.8-2.4cm) [id number] Brandon Wiggins MD, [facility] Electronically signed on 07/04/2024 at 6:25:25 PM Final us Generic External Data Provider CV ECHO PROCEDURE S Final Result documented in this encounter Visit Diagnoses Not on filedocumented in this encounter Care Teams Information Delivery Analyst Relationship Specialty Start Date End Date Sugar Morales MD [address] [place] [address] PCP - Devoted 08/27/20 Sugar Morales MD [address] [place] [address] PCP - General Internal Medicine 01/18/23 Brandon Wiggins MD [address] [facility] [address] [place] [address] Referring Physician Cardiology 09/24/24 Harish Floyd MD [facility] [place] [address] Referring Physician Podiatry 09/24/24 Jelly Stokes, HÉCTOR [address] [place], [place] [id number] Licensed Practical Nurse Family Medicine 09/24/24 Sofía Bedolla OD Ophthalmology 09/12/23 documented as of this encounter
--- OUTSIDE RECORDS SUMMARY | 2025-02-13 14:01 | XMS_ITS ---
Author Organization [facility] Address [address] [facility] [place] [address] Care Team Providers Care Security Professionals Name Role Phone Ismael Morales MD Unavailable [phone] Ismael Morales MD Primary Care Provider [phone] Saúl Wiggins MD Unavailable [phone] Harish Floyd MD Unavailable [phone] Jelly Stokes LPN Unavailable [phone] Chronic Care Management (CCM) Status:Enrolled (Active) Start date:01/11/2023 Enrollment date:01/11/2023 Overview 11/07/23, 9:23 AM - Kerry Wells LPN- Patient gives verbal consent to be enrolled in CCM Program andunderstands there could be a bill for this service. Case Team Name Relationship Phone Jelly Stokes LPN(Responsible Staff) Clinical Advocate [phone] Continued Care and Services Coordination
--- OUTSIDE RECORDS SUMMARY | 2025-02-13 14:01 | XMS_ITS | Encounter Summary ---
Author Organization [facility] Address [address] [place] [address] Care Team Providers Care Horse Racing Manager Name Role Phone Ismael Morales MD Unavailable [phone] Ismael Morales MD Primary Care Provider Saúl Wiggins MD Unavailable [phone] Harish Floyd MD Unavailable [phone] Jelly Stokes LPN Unavailable Encounter Details Date Type Department Care Team (Late st Contact Info) Description 06/28/2023 Orders Only [facility] [address] [place] [id number] A, Unknown Practice [address] [place], [place] [id number] Social History Tobacco Use Types Packs/Day Years Used Date Smoking Tobacco: Every Day Cigarettes Alcohol Use Standard Drinks/Week Comments Not Currently 0 (1 standard drink = 0.6 oz pur e alcohol) Sex and Gender Information Value Date Recorded Sex Assigned at Not on file Legal Sex Male 6:34 PM EDT Gender Identity Not on file Sexual Orientation Not on file documented as of this encounter Plan of Treatment Not on file documented as of this encounter Procedures Procedure Name Priority Date/Time Associated Diagnosis Comments TRANSTHORACIC ECHO (TTE) COMPLETE Routine 06/27/2023 8:52 AM EDT US ABDOMINAL AORTA - GENERIC Routine 06/27/2023 8:32 AM EDT documented in this encounter Results * Transthoracic echo (TTE) complete (06/27/2023 8:52 AM EDT) Anatomical Region Laterality Modality Heart Ultrasound us Unknown Practice A CV ECHO PROCEDURES Final Resu lt * US ABDOMINAL AORTA - GENERIC (06/27/2023 8:32 AM EDT) Anatomical Region Laterality Modality Radiographic Peggy ging us Unknown Practice A IMG XR PROCEDURES Final Resul t documented in this encounter Visit Diagnoses Not on filedocumented in this encounter Care Teams Horse Racing Manager Relationship Specialty Start Date End Date Ismael Morales MD [address] [place] [address] PCP - Devoted 08/27/20 Ismael Morales MD [address] [place] [address] PCP - General Internal Medicine 01/18/23 Saúl Wiggins MD [address] [facility] [address] [place] [address] Referring Physician Cardiology 09/24/24 Harish Floyd MD [facility] [place] [address] Referring Physician Podiatry 09/24/24 Jelly Stokes LPN [address] [place] [address] Licensed Practical Nurse Family Medicine 09/24/24 Sofía Bedolla OD Ophthalmology 09/12/23 documented as of this encounter
--- OUTSIDE RECORDS SUMMARY | 2025-02-13 14:01 | XMS_ITS | Encounter Summary ---
Author Organization [facility] Address [address] [address] [place] [address] Care Team Providers Care Side Guider Name Role Phone Ismael Morales MD Unavailable [phone] Ismael Morales MD Primary Care Provider [phone] Saúl Wiggins MD Unavailable [phone] Harish Floyd MD Unavailable [phone] Jelly Stokes LPN Unavailable [phone] Encounter Details Date Type Department Care Team (Late st Contact Info) Description 06/27/2023 External Result Encounter [facility] External Department Unsolicited Ismael Morales MD [address] [facility] [address] [place] [address] Social History Tobacco Use Types Packs/Day Years [...] Procedure Name Priority Date/Time Associated Diagnosis Comments CONGENITAL TRANSTHORACIC ECHO (TTE) COMPLETE 06/27/2023 1:32 PM EDT documented in this encounter Results * Congenital transthoracic echo (TTE) complete (06/27/2023 1:32 PM EDT) Anatomical Region Laterality Modality Heart Ultrasound 06/27/2023 1:32 PM EDT Narrative 07/18/2023 3:16 PM [facility] Main [place] [address] [place] [address] Echocardiogram Signed Patient: Ismael Andres MR#: [id number] : 1940 Acct:[id number] Age/Sex: 83 / M ADM Date: 06/27/23 Loc: Room: Type: [facility] Attending Dr: Ismael Morales MD Ordering Provider: Ismael Morales MD Date of Service: 06/27/23/ ECH/ECH echo transthoracic: AAA. CAD. 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 Afib. Copies to: MD Ismael Rogers MD Weight: 150 lb Performed By: Toya Watkins LUIS BSA: 1.8 m2 HR: 67 Reason For Study: AAA. CAD. 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 Afib. History: HTN, Scarlet Fever, Smoker, COPD, CAD, Stents, AAA Repair, COVID-19. Interpretation Summary The LV ejection fraction is moderately decreased . Ejection Fraction = 30-35%. The left ventricle is mildly dilated. There is moderate global hypokinesis of the left ventricle. Mild aortic regurgitation. There is mild mitral regurgitation. A variety of Doppler measurements indicate impaired left ventricular relaxation, which is associated with grade I/IV or mild diastolic dysfunction. Compared to prior study, there is no significant change. Procedure/Quality: A two-dimensional transthoracic echocardiogram with color flow and Doppler was performed. Left Ventricle: The left ventricular size is normal. The left ventricle is mildly dilated. The LV ejection fraction is moderately decreased . Ejection Fraction = 30-35%. A variety of Doppler measurements indicate impaired left ventricular relaxation, which is associated with grade I/IV or mild diastolic dysfunction. There is moderate global hypokinesis of the left ventricle. Left Atrium: The left atrium appears normal in size. Right Atrium: The right atrium appears normal in size. Right Ventricle: The right ventricle is normal in size and function. Aortic Valve: The aortic valve is moderately sclerotic. Mild aortic regurgitation. Mitral Valve: There is mild mitral annular calcification. The mitral valve is moderately sclerotic. There is mild mitral regurgitation. Tricuspid Valve: The tricuspid valve is not well visualized. Pulmonic Valve: The pulmonic valve is not well visualized. Arteries: The aortic root is normal size. IVC/Hepatic Viens: The inferior vena cava is normal in size, with a normal collapsibility index. Measurements with Normals IVSd: 1.1 cm (0.7-1.1 cm)LVIDd: 6.3 cm (3.7-5.4 cm) LVPWd: 1.00 cm (0.7-1.1 cm)LVIDs: 5.2 cm (2.3-3.6 cm) LA dimension: 4.4 cm (2.3-4.0 cm)Ao root diam: 3.6 cm(2.0-3.6 cm) asc Aorta Diam: 3.4 cm(2.1-3.4cm) Doppler with Normals LV V1 max: 102.4 cm/sec (0.7-1.7m/s)MV E max luis felipe: 56.6 cm/sec(0.8-1.3m/s) MV A max luis felipe: 92.1 cm/sec(0.0-0.0m/s) MV E/A: 0.61 (<1.5) MMode/2D Measurements Calculations TAPSE: 2.5 cm FS: 17.3 % Ao root area: LVOT diam: 2.4 cm RV S Luis Felipe: EDV(Teich): 10.3 cm2 LVOT area: 4.4 cm2 10.0 cm/sec 202.9 ml ESV(Teich): 131.2 ml EF(Teich): 35.4 % __ LVLd ap4: 9.4 cm SV(MOD-sp4): LAV(MOD-sp4): LA A2 area: 20.3 cm2 EDV(MOD-sp4): 77.0 ml 50.9 ml 217.0 ml LAV(MOD-sp2): LA A4 area: 19.4 cm2 LVLs ap4: 9.2 cm 57.4 ml LA length (vol): ESV(MOD-sp4): 5.6 cm 140.0 ml LA vol: 59.4 ml EF(MOD-sp4): 35.5 % LA vol index: 33.2 ml/m2 Doppler Measurements Calculations MV dec time: MV max PG: E/E' lat: 10.9 MV dec slope: 0.29 sec 134.0 mmHg E/E' med: 11.5 198.3 cm/sec2 __ Ao V2 max: LV V1 max PG: MR max luis felipe: RAP systole: 3.0 mmHg 136.4 cm/sec 4.2 mmHg 578.4 cm/sec Ao max PG: LV V1 mean PG: MR max P.4 mmHg 2.3 mmHg 134.0 mmHg Ao mean PG: LV V1 mean: 3.8 mmHg 72.4 cm/sec Ao V2 mean: LV V1 VTI: 19.3 cm 91.4 cm/sec Ao V2 VTI: 23.2 cm MARLEN(I,D): 3.7 cm2 MARLEN(V,D): 3.3 cm2 Measurements from QLAB CI (): ED Mass (): LAEF (): 22.0 % BSA (): 1.8 m2 213.0 grams 2.5 l/min/m2 __ PAULO (): LAVmax (): LAVmin (): 82.0 mlPat Height (): 59.0 ml/m2 105.0 ml 170.0 cm __ Pat Weight (): 68.2 kg QLAB Heart Model EDV ()_phl: 249.0 ml EF ()_phl: 30.0 % ED Current ()_phl: 60.0 % ESV ()_phl: 175.0 ml HR ()_phl: 59.0 BPMES Current ()_phl: 30.0 % LV Length ED ()_phl: 99.0 mmSV ()_phl: 75.0 ml ED Default ()_phl: 60.0 % LV Length ES ()_phl: 90.0 mm ES Default ()_phl: 30.0 % Transcribed By: NAYELI Performed At: 06/27/23 1332 Signed By: Juanita Mcfarland MD 06/27/23 1756 Procedure Note Juanita Mcfarland MD - 07/18/2023 [facility] Main [place] [address] [place], [place] [id number] Echocardiogram Signed Patient: Ismael Andres GMR#: [id number] : 2Acct:[id number] Age/Sex: 83 / MADM Date: 06/27/23 Loc: Room:Type: [facility] CLI Attending Dr: Ismael Morales MD Ordering Provider: Ismael Morales MD Date of Service: 06/27/23/ [facility] echo transthoracic: AAA. CAD.Non-rheumatic MR. Afib. Copies to: MD Ismael Rogers MD Weight: 150 lb Performed By: ADRIANA Mcdonough BSA: 1.8 m2 HR: 67 Reason For Study: AAA. CAD. 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 Afib. History: HTN, Scarlet Fever, Smoker, COPD, CAD, Stents, AAA Repair,COVID-19. Interpretation Summary The LV ejection fraction is moderately decreased . Ejection Fraction = 30-35%. The left ventricle is mildly dilated. There is moderate global hypokinesis of the left ventricle. Mild aortic regurgitation. There is mild mitral regurgitation. A variety of Doppler measurements indicate impaired left ventricular relaxation, which is associated with grade I/IV or mild diastolicdysfunction. Compared to prior study, there is no significant change. Procedure/Quality: A two-dimensional transthoracic echocardiogram withcolor flow and Doppler was performed. Left Ventricle: The left ventricular size is normal. The left ventricleis mildly dilated. The LV ejection fraction is moderately decreased .Ejection Fraction = 30-35%. A variety of Doppler measurements indicate impairedleft ventricular relaxation, which is associated with grade I/IV or milddiastolic dysfunction. There is moderate global hypokinesis of the left ventricle. Left Atrium: The left atrium appears normal in size. Right Atrium: The right atrium appears normal in size. Right Ventricle: The right ventricle is normal in size and function. Aortic Valve: The aortic valve is moderately sclerotic. Mild aortic regurgitation. Mitral Valve: There is mild mitral annular calcification. The mitralvalve is moderately sclerotic. There is mild mitral regurgitation. Tricuspid Valve: The tricuspid valve is not well visualized. Pulmonic Valve: The pulmonic valve is not well visualized. Arteries: The aortic root is normal size. IVC/Hepatic Viens: The inferior vena cava is normal in size, with anormal collapsibility index. Measurements with Normals IVSd: 1.1 cm (0.7-1.1 cm)LVIDd: 6.3 cm (3.7-5.4 cm) LVPWd: 1.00 cm (0.7-1.1 cm)LVIDs: 5.2 cm (2.3-3.6 cm) LA dimension: 4.4 cm (2.3-4.0 cm)Ao root diam: 3.6 cm(2.0-3.6 cm) asc Aorta Diam: 3.4 cm(2.1-3.4cm) Doppler with Normals LV V1 max: 102.4 cm/sec (0.7-1.7m/s)MV E max luis felipe: 56.6 cm/sec(0.8-1.3m/s) MV A max luis felipe: 92.1 cm/sec(0.0-0.0m/s) MV E/A: 0.61 (<1.5) MMode/2D Measurements Calculations TAPSE: 2.5 cm FS: 17.3 % Ao root area: LVOT diam: 2.4 cm RV S Luis Felipe: EDV(Teich): 10.3 cm2 LVOT area: 4.4cm2 10.0 cm/sec 202.9 ml ESV(Teich): 131.2 ml EF(Teich): 35.4 % __ LVLd ap4: 9.4 cm SV(MOD-sp4): LAV(MOD-sp4): LA A2 area: 20.3cm2 EDV(MOD-sp4): 77.0 ml 50.9 ml 217.0 ml LAV(MOD-sp2): LA A4 area: 19.4cm2 LVLs ap4: 9.2 cm 57.4 ml LA length (vol): ESV(MOD-sp4): 5.6 cm 140.0 ml LA vol: 59.4 ml EF(MOD-sp4): 35.5 % LA vol index: 33.2 ml/m2 Doppler Measurements Calculations MV dec time: MV max PG: E/E' lat: 10.9 MV dec slope: 0.29 sec 134.0 mmHg E/E' med: 11.5 198.3 cm/sec2 __ Ao V2 max: LV V1 max PG: MR max luis felipe: RAP systole: 3.0mmHg 136.4 cm/sec 4.2 mmHg 578.4 cm/sec Ao max PG: LV V1 mean PG: MR max P.4 mmHg 2.3 mmHg 134.0 mmHg Ao mean PG: LV V1 mean: 3.8 mmHg 72.4 cm/sec Ao V2 mean: LV V1 VTI: 19.3 cm 91.4 cm/sec Ao V2 VTI: 23.2 cm MARLEN(I,D): 3.7 cm2 MARLEN(V,D): 3.3 cm2 Measurements from QLAB CI (): ED Mass (): LAEF (): 22.0% BSA (): 1.8 m2 213.0 grams 2.5 l/min/m2 __ PAULO (): LAVmax (): LAVmin (): 82.0 mlPat Height (): 59.0 ml/m2 105.0 ml 170.0 cm __ Pat Weight (): 68.2 kg QLAB Heart Model EDV ()_phl: 249.0 ml EF ()_phl: 30.0 % ED Current ()_phl:60.0 % ESV ()_phl: 175.0 ml HR ()_phl: 59.0 BPMES Current ()_phl:30.0 % LV Length ED ()_phl: 99.0 mmSV ()_phl: 75.0 ml ED Default ()_phl:60.0 % LV Length ES ()_phl: 90.0 mm ES Default ()_phl:30.0 % Transcribed By: SCV Performed At: 06/27/23 1332 Signed By: Juanita Mcfarland MD 06/27/23 1753 Ismael Morales MD CV ECHO PROCEDURES Final Result documented in this encounter Visit Diagnoses Not on filedocumented in this encounter Care Teams Side Guider Relationship Specialty Start Date End Date Ismael Morales MD [address] [place] [address] PCP - Devoted 08/27/20 Ismael Morales MD [address] [facility] [address] [place] [address] PCP - General Internal Medicine 01/18/23 Saúl Wiggins MD [address] [facility] [address] [place] [address] Referring Physician Cardiology 09/24/24 Harish [place] MD [facility] [place] [address] Referring Physician Podiatry 09/24/24 Jelly Stokes LPN [address] [facility] [address] [place] [address] Licensed Practical Nurse Family Medicine 09/24/24 Sofía Bedolla OD Ophthalmology 09/12/23 documented as of this encounter
--- OUTSIDE RECORDS SUMMARY | 2025-02-13 14:01 | XMS_ITS | Encounter Summary ---
Author Organization [facility] Address [address] [facility] [place] [address] Care Team Providers Care Cathode Ray Tube Assembler Name Role Phone Ismael Morales MD Unavailable [phone] Ismael Morales MD Primary Care Provider [phone] Saúl Wiggins MD Unavailable [phone] Harish Floyd MD Unavailable [phone] Jelly Stokes LPN Unavailable [phone] Encounter Details Date Type Department Care Team (Late st Contact Info) Description 01/06/2024 External Result Encounter [facility] External Department Unsolicited Tam Nichols, DO [address] [facility] [address] [place] [address] Social History Tobacco Use Types Packs/Day Years [...] 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, 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 Not on file Not on file Not on david e documented as of this encounter Plan of Treatment Not on file documented as of this encounter Procedures Procedure Name Priority Date/Time Associated Diagnosis Comments ECG 12-LEAD 01/06/2024 1:02 PM EDT documented in this encounter Results * ECG 12 lead (01/06/2024 1:02 PM EDT) 01/06/2024 1:02 PM EDT [facility] 01/06/2024 2:53 PM EDT [facility] Main [place] [id number] Electrocardiograph Report Signed Patient: Ismael Andres MR#: [id number] : 1940 Acct:[id number] Age/Sex: 83 / M ADM Date: 01/04/24 Loc: Room: 7I6626-8 Type: ADM IN Attending Dr: Shelly Lopez MD Ordering Provider: Tam Nichols DO Date of Service: 01/06/2408/19/1247 ECG/ECG 12 lead ECG: tachy with PVCs Copies to: Test Reason : Blood Pressure : / mmHG Vent. Rate : 099 BPM Atrial Rate : 099 BPM P-R Int : 130 ms QRS Dur : 148 ms QT Int : 396 ms P-R-T Axes : 076 -56 117 degrees QTc Int : 508 ms Sinus rhythm with occasional premature ventricular complexes and Possible premature atrial complexes with aberrant conduction Right bundle branch block Left anterior fascicular block Bifascicular block T wave abnormality, consider lateral ischemia Abnormal ECG When compared with ECG of 04-JAN-2024 18:35, premature ventricular complexes are now present aberrant conduction is now present Vent. rate has increased BY 33 BPM T wave inversion more evident in Lateral leads Confirmed by KIMI MAIER MD, FACC ([id number]) on 01/06/2024 2:53:07 PM Referred By: Electronically Signed By:KIMI MAIER MD [facility] Transcribed By: MUS Signed By Justin Maier MD 01/06/24 4134 Procedure Note Sebastian Maier MD - 01/06/2024 [facility] Main [address] [address] Electrocardiograph Report Signed Patient: Ismael Andres GMR#: [id number] : 1940cct:[id number] Age/Sex: 83 / MADM Date: 01/04/24 Loc: Room: [id number]: ADM IN Attending Dr: Shelly Lopez MD Ordering Provider: Tam Nichols DO Date of Service: 01/06/2408/19/1247 ECG/ECG 12 lead ECG: tachy with PVCs Copies to: Test Reason : Blood Pressure : / mmHG Vent. Rate : 099 BPM Atrial Rate : 099 BPM P-R Int : 130 ms QRS Dur : 148 ms QT Int : 396 ms P-R-T Axes : 076 -56 117 degrees QTc Int : 508 ms Sinus rhythm with occasional premature ventricular complexes and Possiblepremature atrial complexes with aberrant conduction Right bundle branch block Left anterior fascicular block Bifascicular block T wave abnormality, consider lateral ischemia Abnormal ECG When compared with ECG of 04-JAN-2024 18:35, premature ventricular complexes are now present aberrant conduction is now present Vent. rate has increased BY 33 BPM T wave inversion more evident in Lateral leads Confirmed by [facility] Rhodes ([id number]) on 01/06/2024 2:53:07 PM Referred By: Electronically Signed By:KIMI MAIER MD [facility] Transcribed By: MUS Signed By Justin Maier MD 01/06/24 1450 us Tam Carmelo Nichols DO ECG ORDERABLES Final Result Performing Organization Address City/State/[facility] Co de Phone Number [address] [place] [address], documented in this encounter Visit Diagnoses Not on filedocumented in this encounter Care Teams Cathode Ray Tube Assembler Relationship Specialty Start Date End Date Ismael Morales MD [address] [place] [address] PCP - Devoted 08/27/20 Ismael Morales MD [address] [place] [address] PCP - General Internal Medicine 01/18/23 Saúl Wiggins MD [address] [facility] [address] [place] [address] Referring Physician Cardiology 09/24/24 Harish Floyd MD [facility] [place] [address] Referring Physician Podiatry 09/24/24 Jelly Stokes, HÉCTOR [address] [place] [address] Licensed Practical Nurse Family Medicine 09/24/24 Sofía Bedolla OD Ophthalmology 09/12/23 documented as of this encounter
--- OUTSIDE RECORDS SUMMARY | 2025-02-13 14:01 | XMS_ITS | Encounter Summary ---
Author Organization [facility] Address [address] [place] [address] Care Team Providers Care Sap Mobility Architect Name Role Phone Ismael Morales MD Unavailable [phone] Ismael Morales MD Primary Care Provider [phone] Saúl Wiggins MD Unavailable Harish Floyd MD Unavailable [phone] Jelly Stokes LPN Unavailable Encounter Details Date Type Department Care Team (Late st Contact Info) Description 02/02/2025 Patient Outreach [facility] [address] 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 Pt reports today that he is doing well. He is staying active in his garden. He gets around without issues, denies falls. Denies cp, but admits to sob. States it'snormal for him due to COPD. This hasn't worsened. Appetite is good, sleeps well. No new medications. Pt denies questions or concerns and he will call with needs. documented in this encounter Plan of Treatment Not on file documented as of this encounter Visit Diagnoses Diagnosis Chronic obstructive pulmonary disease, unspecified COPD type (HCC)- Primary Chronic systolic congestive heart failure (HCC) documented in this encounter Care Teams Sap Mobility Architect Relationship Specialty Start Date End Date Ismael Morales MD [address] [place] [address] PCP - Devoted 08/27/20 Ismael Morales MD [address] [place] [address] PCP - General Internal Medicine 01/18/23 Saúl Wiggins MD [address]03 [facility] [address] [place] [address] Referring Physician Cardiology 09/24/24 Harish Floyd MD [address] [place] [address] [place] [address] Referring Physician Podiatry 09/24/24 Jelly Stokes LPN [address] [place] [address] Licensed Practical Nurse Family Medicine 09/24/24 Sofía Bedolla OD Ophthalmology 09/12/23 documented as of this encounter
--- OUTSIDE RECORDS SUMMARY | 2025-02-13 14:01 | XMS_ITS | Encounter Summary ---
Author Organization [facility] Address [address] [place] [address] Care Team Providers Care Sinter Feeder Name Role Phone Ismael Morales MD Unavailable [phone] Ismael Morales MD Primary Care Provider [phone] Saúl Wiggins MD Unavailable [phone] Harish Floyd MD Unavailable [phone] Jelly Stokes LPN Unavailable [phone] Encounter Details Date Type Department Care Team (Late st Contact Info) Description 01/04/[address] [facility] [address] [facility] [address] [place] [id number] Tam Nichols DO 703 [facility] [address] [place] [address] Social History Tobacco Use Types [...] 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, 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 file Not on file Not on david e documented as of this encounter Plan of Treatment Not on file documented as of this encounter Visit Diagnoses Not on filedocumented in this encounter Care Teams Sinter Feeder Relationship Specialty Start Date End Date Ismael Morales MD [address] [facility] [address] [place] [address] PCP - Devoted 08/27/20 Ismael Morales MD [address] [facility] [address] [place] [address] PCP - General Internal Medicine 01/18/23 Saúl Wiggins MD 703 [facility] [address] [place] [address] Referring Physician Cardiology 09/24/24 Harish Floyd MD [facility] [place] [address] Referring Physician Podiatry 09/24/24 Jelly Stokes LPN [address] [facility] [address] [place] [address] Licensed Practical Nurse Family Medicine 09/24/24 Sofía Bedolla OD Ophthalmology 09/12/23 documented as of this encounter
--- OUTSIDE RECORDS SUMMARY | 2025-02-13 14:01 | XMS_ITS | Encounter Summary ---
Author Organization [facility] Address [address] [facility] [address] Care Team Providers Care Deck And Hull Assembler Name Role Phone Ismael Morales MD Unavailable [phone] Ismael Morales MD Primary Care Provider [phone] Saúl Wiggins MD Unavailable [phone] Harish Floyd MD Unavailable [phone] Jelly Stokes LPN Unavailable [phone] Encounter Details Date Type Department Care Team (Late st Contact Info) Description 01/06/2024 External Result Encounter [facility] External Department Unsolicited Tam Nichols, DO [address] [facility] [address] [place] [address] Social History Tobacco Use Types [...] 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 Impression dictated by: Zoltan Kumar M.D.01/06/2024 1:12 PM Dictation Location: [facility]- Transcribed By: PWS 01/06/24 1312 Dictated By: Zoltan Kumar DO 01/06/24 1311 Signed By: <Electronically signed by Zoltan Kumar DO in OV> 01/06/24 1312 Narrative 01/06/2024 1:14 [place] [address] XRay Report Signed Patient: Ismael Andres MR#: [id number] : 1940 Acct:[id number] Age/Sex: 83 / M ADM Date: 01/04/24 Loc: Room: [address] [place] [address] Type: ADM IN Attending Dr: Shelly Lopez MD Copies to: MD Tam Santillan DO Ordering Provider: Tam Nichols DO Date of Service: 01/06/24 XR/XR chest 1V portable: central line Plain film chest Single view HISTORY: Shortness of breath COMPARISON: 05/20/23 FINDINGS: SUPPORT DEVICES: NG tube in stomach POSTSURGICAL CHANGES: None HEART: Within normal limits PULMONARY BIRGIT: Within normal limits MEDIASTINUM: Moderate hiatal hernia. Atherosclerosis of thoracic aorta LUNGS AND PLEURA: No acute lung process, pleural effusion or pneumothorax identified. Minor atelectasis/scarring. Hyperinflation. BONY STRUCTURES: Intact ADDITIONAL FINDINGS None XR/XR chest 1V portable Procedure Note Radiology, Radiologist, - 01/06/2024 [facility] [place] [address] XRay Report Signed Patient: Ismael Andres GMR#: [id number] : 1940cct:[id number] Age/Sex: 83 / MADM Date: 01/04/24 Loc: Room: [id number]: ADM IN Attending Dr: Shelly Lopez MD Copies to: MD Tam Santillan DO Ordering Provider: Tam Nichols DO Date of Service: 01/06/24 XR/XR chest 1V portable: central line Plain film chest Single view HISTORY: Shortness of breath COMPARISON: 05/20/23 FINDINGS: SUPPORT DEVICES: NG tube in stomach POSTSURGICAL CHANGES: None HEART: Within normal limits PULMONARY BIRGIT: Within normal limits MEDIASTINUM: Moderate hiatal hernia. Atherosclerosis of thoracic aorta LUNGS AND PLEURA: No acute lung process, pleural effusion or pneumothoraxidentified. Minor atelectasis/scarring. Hyperinflation. BONY STRUCTURES: Intact ADDITIONAL FINDINGS None XR/XR chest 1V portable IMPRESSION: No acute process. Impression dictated by: Zoltan Kumar M.D.01/06/2024 1:12 PM Dictation Location: [place] [address] Transcribed By: [facility] 01/06/24 1312 Dictated By: Zoltan Kumar DO 01/06/24 1311 Signed By: <Electronically signed by Zoltan Kumar DO in OV> 01/06/24 1312 Tam Nichols DO IMG XR PROCEDURES Final Result documented in this encounter Visit Diagnoses Not on filedocumented in this encounter Care Teams Deck And Hull Assembler Relationship Specialty Start Date End Date Ismael Morales MD [address] [place] [address] PCP - Devoted 08/27/20 Ismael Morales MD [address] [place] [address] PCP - General Internal Medicine 01/18/23 Saúl Wiggins MD 703 [facility] 2[address] [place] [address] Referring Physician Cardiology 09/24/24 Harish Floyd MD [facility] [address] Referring Physician Podiatry 09/24/24 Jelly Stokes, HÉCTOR [address] [place] [address] Licensed Practical Nurse Family Medicine 09/24/24 Sofía Bedolla OD Ophthalmology 09/12/23 documented as of this encounter
--- OUTSIDE RECORDS SUMMARY | 2025-02-13 14:01 | XMS_ITS | Encounter Summary ---
Author Organization [facility] Address [address] [place] [address] Care Team Providers Care Shipping Helper Name Role Phone Ismael Morales MD Unavailable [phone] Ismael Morales MD Primary Care Provider Saúl Wiggins MD Unavailable [phone] Harish Floyd MD Unavailable [phone] Jelly Stokes LPN Unavailable [phone] Encounter Details Date Type Department Care Team (Late st Contact Info) Description 03/19/2024 Orders Only [facility] [address] [place] [id number] A, Unknown Practice [address] [place], [place] [address] Social History Tobacco Use Types Packs/Day Years [...] 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, 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 on file Not on file Not on david e documented as of this encounter Plan of Treatment Not on file documented as of this encounter Procedures Procedure Name Priority Date/Time Associated Diagnosis Comments US EXTREMITIES Routine 03/19/2024 8:24 AM EDT documented in this encounter Results * US EXTREMITIES (03/19/2024 8:24 AM EDT) Anatomical Region Laterality Modality Radiographic Peggy ging us Unknown Practice A IMG XR PROCEDURES Final Resul t documented in this encounter Visit Diagnoses Not on filedocumented in this encounter Care Teams Shipping Helper Relationship Specialty Start Date End Date Ismael Morales MD [address] [place] [address] PCP - Devoted 08/27/20 Ismael Morales MD [address] [place] [address] PCP - General Internal Medicine 01/18/23 Saúl Wiggins MD [address] [facility] 2, [address] [place] [address] Referring Physician Cardiology 09/24/24 Harish Floyd MD [address] [place] [address] Referring Physician Podiatry 09/24/24 Jelly Stokes LPN [address] [place] [address] Licensed Practical Nurse Family Medicine 09/24/24 Soífa Bedolla OD Ophthalmology 09/12/23 documented as of this encounter
--- OUTSIDE RECORDS SUMMARY | 2025-02-13 14:01 | XMS_ITS | Encounter Summary ---
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, 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 Not on file Not on file Not on david e documented as of this encounter Plan of Treatment Not on file documented as of this encounter Procedures Procedure Name Priority Date/Time Associated Diagnosis Comments NUCLEAR STRESS TEST EXERCISE (CARD) 03/31/2024 12:10 PM EDT documented in this encounter Results * NUCLEAR STRESS TEST EXERCISE (CARD) (03/31/2024 12:10 PM EDT) Anatomical Region Laterality Modality Radiographic Peggy ging 03/31/2024 12:1 0 PM EDT Narrative 03/31/2024 3:35 PM EDT Interpreted By: Brandon Wiggins and Giannuzzi Michael STUDY: MYOCARDIAL PERFUSION STRESS TEST WITH LEXISCAN Performing facility: [facility], [address] [place] [address], [address], [place] [address] [facility] Provider: Brandon Wiggins MD, [facility] PCP: Dr. Tee Morales Supervising provider: Kristi Fair MD, [facility] INDICATION: Pre-operative risk assessment for Colonoscopy scheduled at [facility] on D. HISTORY: Gender: M; Age: 84 y/o ; Height: HT 175.3 cm cm; Weight: WT 57.153 kg kg. CAD; Abnormal EKG; A-fib ICM Currently smoking. Cardiac catheterization on 2020. 2020 COMPARISON: Previous nuclear testing completed [id number] at [facility]. ACCESSION NUMBER(S): [id number] ORDERING CLINICIAN: BRANDON WIGGINS TECHNIQUE: ONE DAY protocol. Stress injection: Date:03-31-24, 34.1 mCi of Myoview IV 20 seconds after rapid injection of Lexiscan. Rest injection: Date: 03-31-24, 10.6 mCi of Myoview IV at rest. The patient had a rapid injection of 0.4 mg of Lexiscan IV over 10 seconds. Imaging was performed by gated tomographic technique. Reason for Lexiscan: Drop foot STRESS TEST DATA: Resting heart rate was 60 BPM. Resting blood pressure was 126/84 mmHg. Peak blood pressure was 122/76 mmHg. Peak heart rate was 80 BPM. TEST TERMINATED DUE TO: Protocol completed FINDINGS: STRESS TEST RESULTS: Resting electrocardiogram revealed normal sinus rhythm with LVH and diffuse repolarization abnormalities. There were no significant ischemic ECG changes or dysrhythmias. The patient did not have chest pains/symptoms during procedure. There was a normal recovery phase. IMAGING RESULTS: Image quality was good. Rest and stress tomographic images were reviewed and revealed abnormal perfusion. There was no evidence of perfusion abnormality consistent with ischemia. There was evidence of a large fixed mid-distal inferior, inferoseptal and inferior apical perfusion abnormality consistent with infarction. There was no left ventricular dilatation with stress. Overall left ventricular systolic function appeared to be abnormal. There was severe global hypokinesis. LVEF was 22%. TID is 1.10 and is normal. There was no evidence of attenuation artifact. IMPRESSION: Abnormal Lexiscan Myoview cardiac perfusion stress test. No myocardial ischemia by perfusion imaging. Moderate-sized mid -distal inferior, inferoseptal and inferoapical myocardial infarction by perfusion imaging. Abnormal left ventricular systolic function. Left ventricular ejection fraction 22 % with severe global hypokinesis. When compared to study from 2018, the previous study report ejection fraction of 28% and indicated no evidence of myocardial infarction or ischemia. Present study reveals evidence of fixed perfusion defect consistent with infarction as noted above. Signed by: Brandon Wiggins 03/31/2024 3:35 PM Dictation workstation: [id number] Procedure Note Radiology, Radiologist, MD - 03/31/2024 Interpreted By: Brandon Wiggins, and Ruthie Daniel STUDY: MYOCARDIAL PERFUSION STRESS TEST WITH LEXISCAN Performing facility: [facility], [address] [place] [address], [address], [address] Provider: Brandon Wiggins MD, FACC PCP: Dr. Tee Morales Supervising provider: Kristi Fair MD, FACC INDICATION: Pre-operative risk assessment for Colonoscopy scheduled at [facility] on [facility]. HISTORY: Gender: M; Age: 84 y/o ; Height: HT 175.3 cm cm; Weight: WT 57.153 kg kg. CAD; Abnormal EKG; A-fib ICM Currently smoking. Cardiac catheterization on 2020. 2020 COMPARISON: Previous nuclear testing completed [id number] at [facility]. ACCESSION NUMBER(S): [id number] ORDERING CLINICIAN: BRANDON WIGGINS TECHNIQUE: ONE DAY protocol. Stress injection: Date:03-31-24, 34.1 mCi of Myoview IV 20 seconds after rapid injection of Lexiscan. Rest injection: Date: 03-31-24, 10.6 mCi of Myoview IV at rest. The patient had a rapid injection of 0.4 mg of Lexiscan IV over 10 seconds. Imaging was performed by gated tomographic technique. Reason for Lexiscan: Drop foot STRESS TEST DATA: Resting heart rate was 60 BPM. Resting blood pressure was 126/84 mmHg. Peak blood pressure was 122/76 mmHg. Peak heart rate was 80 BPM. TEST TERMINATED DUE TO: Protocol completed FINDINGS: STRESS TEST RESULTS: Resting electrocardiogram revealed normal sinus rhythm with LVH and diffuse repolarization abnormalities. There were no significant ischemic ECG changes or dysrhythmias. The patient did not have chest pains/symptoms during procedure. There was a normal recovery phase. IMAGING RESULTS: Image quality was good. Rest and stress tomographic images were reviewed and revealed abnormal perfusion. There was no evidence of perfusion abnormality consistent with ischemia. There was evidence of a large fixed mid-distal inferior, inferoseptal and inferior apical perfusion abnormality consistent with infarction. There was no left ventricular dilatation with stress. Overall left ventricular systolic function appeared to be abnormal. There was severe global hypokinesis. LVEF was 22%. TID is 1.10 and is normal. There was no evidence of attenuation artifact. IMPRESSION: Abnormal Lexiscan Myoview cardiac perfusion stress test. No myocardial ischemia by perfusion imaging. Moderate-sized mid -distal inferior, inferoseptal and inferoapical myocardial infarction by perfusion imaging. Abnormal left ventricular systolic function. Left ventricular ejection fraction 22 % with severe global hypokinesis. When compared to study from 2018, the previous study report ejection fraction of 28% and indicated no evidence of myocardial infarction or ischemia. Present study reveals evidence of fixed perfusion defect consistent with infarction as noted above. Signed by: Brandon Wiggins 03/31/2024 3:35 PM Dictation workstation: [id number] us Generic External Data Provider IMG XR PROCEDURES Final Result documented in this encounter Visit Diagnoses Not on filedocumented in this encounter Care Teams Elementary School Teacher'S Aide Relationship Specialty Start Date End Date Ismael Morales MD [address] [place] [address] PCP - Devoted 08/27/20 Ismael Morales MD [address] [place] [address] PCP - General Internal Medicine 01/18/23 Brandon Wiggins MD [facility] [facility], [address] [place] [address] Referring Physician Cardiology 09/24/24 Harish Floyd MD [facility] [place] [address] Referring Physician Podiatry 09/24/24 Jelly Stokes, HÉCTOR [address] [place] [address] Licensed Practical Nurse Family Medicine 09/24/24 Sofía Bedolla OD Ophthalmology 09/12/23 documented as of this encounter
--- OUTSIDE RECORDS SUMMARY | 2025-02-13 14:01 | XMS_ITS | Encounter Summary ---
Author Organization [facility] Address [address] [place] [address] Care Team Providers Care Subassemblies Wirer Name Role Phone Ismael Morales MD Unavailable [phone] Ismael Morales MD Primary Care Provider Saúl Wiggins MD Unavailable [phone] Harish Floyd MD Unavailable [phone] Jelly Stokes LPN Unavailable [phone] Encounter Details Date Type Department Care Team (Late st Contact Info) Description 01/15/2024 Orders Only [facility] [address] [place] [id number] A, Unknown Practice [address] [place], [place] [address] Social History Tobacco Use Types Packs/Day Years [...] 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, 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 Not on file Not on file Not on david e documented as of this encounter Plan of Treatment Not on file documented as of this encounter Procedures Procedure Name Priority Date/Time Associated Diagnosis Comments HEMOGRAM CBC WITHOUT DIFF ([facility]) Routine 01/15/2024 2:33 PM EDT BASIC METABOLIC PANEL Routine 01/15/2024 2:33 PM EDT MAGNESIUM Routine 01/15/2024 2:32 PM EDT COMPREHENSIVE METABOLIC PANEL Routine 01/15/2024 2:[address] ABDOMEN WO IV CONTRAST Routine 2023 2:29 PM EDT XR CHEST 1 VIEW Routine 01/15/2024 2:27 PM EDT TRANSTHORACIC ECHO (TTE) COMPLETE Routine 01/15/2024 2:25 PM EDT documented in this encounter Results * HEMOGRAM CBC WITHOUT DIFF ([facility]) (01/15/2024 2:33 PM EDT) us Unknown Practice A LAB BLOOD ORDERABLES Final Re sult * Basic metabolic panel (01/15/2024 2:33 PM EDT) Blood Venous blood specimen / Unknown Unknown Practice A LAB BLOOD ORDERABLES Final Re sult * Comprehensive metabolic panel (01/15/2024 2:32 PM EDT) Blood Venous blood specimen / Unknown us Unknown Practice A LAB BLOOD ORDERABLES Final Re sult * Magnesium (01/15/2024 2:32 PM EDT) Blood Venous blood specimen / Unknown us Unknown Practice A LAB BLOOD ORDERABLES Final Re sult * CT abdomen wo IV contrast (01/15/2024 2:29 PM EDT) Anatomical Region Laterality Modality Body, Abdomen Computed Tomogra phy us Demetrius Otoole MD IMG CT PROCEDURES Final Result * XR chest 1 view (01/15/2024 2:27 PM EDT) Anatomical Region Laterality Modality Chest Radiographic Peggy ging Unknown Practice A IMG XR PROCEDURES Final Resul t * Transthoracic echo (TTE) complete (01/15/2024 2:25 PM EDT) Anatomical Region Laterality Modality Heart Ultrasound us Unknown Practice A CV ECHO PROCEDURES Final Resu lt documented in this encounter Visit Diagnoses Not on filedocumented in this encounter Care Teams Subassemblies Wirer Relationship Specialty Start Date End Date Ismael [place] MD [address] [place] [address] PCP - Devoted 08/27/20 Ismael [place]ales MD [address] [place] [address] PCP - General Internal Medicine 01/18/23 Saúl Wiggins MD [address] [facility] 2, [address] [place] [address] Referring Physician Cardiology 09/24/24 Harish Floyd MD [facility] [place] [address] Referring Physician Podiatry 09/24/24 Jelly Stokes LPN [address] [place] [address] Licensed Practical Nurse Family Medicine 09/24/24 Sofía Bedolla OD Ophthalmology 09/12/23 documented as of this encounter
--- OUTSIDE RECORDS SUMMARY | 2025-02-13 14:01 | XMS_ITS | Encounter Summary ---
Author Organization [facility] Address [address] [place] [address] Care Team Providers Care Booster Operator Name Role Phone Ismael [place] MD Unavailable [phone] Ismael [place] MD Primary Care Provider [phone] Saúl Wiggins MD Unavailable [phone] Harish Floyd MD Unavailable [phone] Jelly Stokes LPN Unavailable [phone] Encounter Details Date Type Department Care Team (Late st Contact Info) Description 06/27/2023 External Result Encounter [facility] External Department Unsolicited Ismael [place] MD [address] [place] [address] Social History Tobacco Use Types Packs/Day Years [...] on file documented as of this encounter Miscellaneous Notes * Result Encounter Note - Ismael [place] MD - 06/27/2023 11:59 PM EDT Please call and tell him I know he saw the U/S already but wanted to say that since the aneurysm isless than 5.0 cm, we can just continue to monitor. We can discuss further at his August appt or ifhe wants to see a vascular surgeon to get their opinion, I can send a referral for this. Let me know. documented in this encounter Plan of Treatment Not on file documented as of this encounter Procedures Procedure Name Priority Date/Time Associated Diagnosis Comments VASC US ABDOMINAL AORTA ANUERYSM AAA SCREENING 06/27/2023 3:40 PM EDT documented in this encounter Results * Vascular US abdominal aorta anuerysm AAA screening (06/27/2023 3:40 PM EDT) Anatomical Region Laterality Modality Abdomen Ultrasound 06/27/2023 3:40 PM EDT Narrative 07/18/2023 3:16 PM EST [facility] [address] [place] [address] [place] [address] Ultrasound Report Signed Patient: Ismael Andres MR#: [id number] : 1940 Acct:[id number] Age/Sex: 83 / M ADM Date: 06/27/23 Loc: Room: Type: [facility] Attending Dr: Ismael [place] MD Ordering Provider: Ismael Morales MD Date of Service: 06/27/23 US/US aorta: I71.40 Copies to: Ismael Morales MD Aortic ultrasound Reason for exam: Follow-up abdominal aortic aneurysm. History of stent. Comparison: CT abdomen and pelvis 01/18/2023 Technique: Grayscale, spectral and color Doppler images of the abdominal aorta were obtained. Findings: The patient is status post endovascular repair of abdominal aortic aneurysm. The paskenta aneurysmal sac measures 3.2 cm on today's study which has possibly decreased in size measuring 4.2 cm on the prior CT study. Stent appears patent. Just proximal to the stent, there appears to be aneurysmal dilatation measuring 4.9 cm. Visualized iliac arteries appear normal in caliber. US/US aorta Impression: Just proximal to the endovascular stent, there is aneurysmal dilatation of the proximal abdominal aorta measuring 4.9 cm. A similar process is seen at the level of aortic hiatus on the prior CT study. If further evaluation is needed, CTA is recommended. Endovascular repair of the distal abdominal aorta without evidence of complication by ultrasound. Impression dictated by: Prateek Flood Jr., D.O.06/27/2023 3:44 PM Dictation Location: [facility] Tech: Apoorva Cartagena Transcribed By: GLEN 06/27/23 1544 Dictated By: Prateek Flood Jr, DO 06/27/23 1540 Signed By: <Electronically signed by Prateek Flood Jr, DO in OV> 06/27/23 1544 Procedure Note Radiology, Radiologist, MD - 07/18/2023 [facility] [place] [address] [place] [address] Ultrasound Report Signed Patient: Ismael Andres GMR#: [id number] : 2Acct:[id number] Age/Sex: 83 / MADM Date: 06/27/23 Loc: Room:Type: [facility] Attending Dr: Ismael Morales MD Ordering Provider: Ismael Morales MD Date of Service: 06/27/23 US/US aorta: I71.40 Copies to: Ismael Morales MD Aortic ultrasound Reason for exam: Follow-up abdominal aortic aneurysm. History of stent. Comparison: CT abdomen and pelvis 01/18/2023 Technique: Grayscale, spectral and color Doppler images of the abdominalaorta were obtained. Findings: The patient is status post endovascular repair of abdominal aorticaneurysm. The paskenta aneurysmal sac measures 3.2 cm on today's study which has possibly decreased in sizemeasuring 4.2 cm on the prior CT study. Stent appears patent. Just proximal to the stent, thereappears to be aneurysmal dilatation measuring 4.9 cm. Visualized iliac arteries appear normal incaliber. US/US aorta Impression: Just proximal to the endovascular stent, there is aneurysmal dilatation ofthe proximal abdominal aorta measuring 4.9 cm. A similar process is seen at the level of aortichiatus on the prior CT study. If further evaluation is needed, CTA is recommended. Endovascular repair of the distal abdominal aorta without evidence ofcomplication by ultrasound. Impression dictated by: Prateek Flood Jr., D.O.06/27/2023 3:44 PM Dictation Location: [place] [address] Tech: Apoorva Cartagena Transcribed By: PWS 06/27/23 1544 Dictated By: Prateek Flood Jr, 06/27/23 1540 Signed By: <Electronically signed by Prateek Flood Jr, DO inOV> 06/27/23 1544 Ismael [place] MD IMG PROCEDURES Final Result documented in this encounter Visit Diagnoses Not on filedocumented in this encounter Care Teams Booster Operator Relationship Specialty Start Date End Date Ismael [place]ales MD [address] [place] [address] PCP - Devoted 08/27/20 Ismael [place] MD [address] [place] [address] PCP - General Internal Medicine 01/18/23 Saúl Wiggins MD 3 [facility] 2, [address] [place] [address] Referring Physician Cardiology 09/24/24 Harish Floyd MD [facility] [place] [address] Referring Physician Podiatry 09/24/24 Jelly Stokes LPN [address] [place] [address] Licensed Practical Nurse Family Medicine 09/24/24 Sofía Bedolla OD Ophthalmology 09/12/23 documented as of this encounter
--- OUTSIDE RECORDS SUMMARY | 2025-02-13 14:01 | XMS_ITS | Encounter Summary ---
Author Organization [facility] Address [address] [place] [address] Care Team Providers Care Noise Tester Name Role Phone sImael Morales MD Unavailable [phone] Ismael Morales MD Primary Care Provider [phone] Saúl Wiggins MD Unavailable [phone] Harish Floyd MD Unavailable [phone] Jelly Stokes LPN Unavailable [phone] Encounter Details Date Type Department Care Team (Late st Contact Info) Description 02/27/2024 Orders Only [facility] [address] [place] [phone] A, Unknown Practice [address] [place], [place] [id number] Social History Tobacco Use Types Packs/Day Years [...] 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, 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 Not on file Not on file Not on david e documented as of this encounter Plan of Treatment Not on file documented as of this encounter Procedures Procedure Name Priority Date/Time Associated Diagnosis Comments ESOPHAGOSCOPY Routine 02/27/2024 11:40 AM EDT documented in this encounter Results * Esophagoscopy (02/27/2024 11:40 AM EDT) Anatomical Region Laterality Modality Endoscopy us Unknown Practice A ENDOSCOPY PROCEDURE ORDERABLE S Final Result documented in this encounter Visit Diagnoses Not on filedocumented in this encounter Care Teams Noise Tester Relationship Specialty Start Date End Date Ismael [place] MD [address] [place] [address] PCP - Devoted 08/27/20 Ismael [place]ales MD [address] [place] [address] PCP - General Internal Medicine 01/18/23 Saúl Wiggisn MD [address]03 [facility] 2, [address] [place] [address] Referring Physician Cardiology 09/24/24 Harish Floyd MD [facility] [place] [address] Referring Physician Podiatry 09/24/24 Jelly Stokes LPN [address] [place] [address] Licensed Practical Nurse Family Medicine 09/24/24 Sofía Bedolla OD Ophthalmology 09/12/23 documented as of this encounter
[2025-02-13 14:02] VITALS: BP 134/86; PULSE 145; TEMP 36.7; O2SAT 95
--- OUTSIDE RECORDS SUMMARY | 2025-02-13 14:02 | XMS_ITS | Encounter Summary ---
Author Organization [facility] Address [address] [place] [address] Care Team Providers Care Senior Front End Engineer Name Role Phone Ismael Morales MD Unavailable [phone] Ismael Morales MD Primary Care Provider [phone] Saúl Wiggins MD Unavailable [phone] Harish Floyd MD Unavailable [phone] Jelly Stokes LPN Unavailable [phone] Encounter Details Date Type Department Care Team (Late st Contact Info) Description 01/20/2024 External Result Encounter [facility] External Department Unsolicited Tam Nichols, DO [address] 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 Impression dictated by: Judy iBrmingham M.D.01/20/2024 7:51 AM Dictation Location: [place] [address] Transcribed By: [facility] 01/20/24 0751 Dictated By: Judy Birmingham MD 01/20/24 0749 Signed By: <Electronically signed by MD Judy Birmingham in OV> 01/20/24 0751 Narrative 01/20/2024 7:54 AM EDT [place] [id number] XRay Report Signed Patient: Ismael Andres MR#: [id number] : 1940 Acct:[id number] Age/Sex: 83 / M ADM Date: 01/19/24 Loc: Room: [address] [place] [address] Type: ADM IN Attending Dr: Ben Mendoza MD Copies to: MD Tam Roper DO Ordering Provider: Tam Nichols DO Date of Service: 01/20/24 XR/XR KUB: Fall PORTABLE KUB: COMPARISON: CT 01/18/2014 CLINICAL DATA: Abdominal pain with weakness, nausea and vomiting. Supine view the abdomen and pelvis was obtained. There is air at the splenic flexure as well as small bowel loops at the left upper quadrant which appear less distended than on the CT siding applicator view. There is relative paucity of bowel gas elsewhere within the abdomen and pelvis. No soft tissue masses are noted. There is atherosclerotic disease and an aortic endoluminal stent. Vertical midline skin arik are noted. XR/XR KUB Procedure Note Radiology, Radiologist, - 01/20/[address] [address] XRay Report Signed Patient: Ismael Andres GMR#: [id number] : 2Acct:[id number] Age/Sex: 83 / MADM Date: 01/19/24 Loc: Room: [id number]: ADM IN Attending Dr: Ben Mendoza MD Copies to: MD Tam Roper DO Ordering Provider: Tam Nichols DO Date of Service: 01/20/24 XR/XR KUB: Fall PORTABLE KUB: COMPARISON: CT 01/18/2014 CLINICAL DATA: Abdominal pain with weakness, nausea and vomiting. Supine view the abdomen and pelvis was obtained. There is air at thesplenic flexure as well as small bowel loops at the left upper quadrant which appear less distendedthan on the CT siding applicator view. There is relative paucity of bowel gas elsewhere within the abdomen andpelvis. No soft tissue masses are noted. There is atherosclerotic disease and an aorticendoluminal stent. Vertical midline skin arik are noted. XR/XR KUB IMPRESSION: NONSPECIFIC BOWEL GAS PATTERN. Impression dictated by: Judy Birmingham M.D.01/20/2024 7:51 AM Dictation Location: [place] [address] Transcribed By: [facility] 01/20/24 0751 Dictated By: Judy Birmingham MD 01/20/24 0749 Signed By: <Electronically signed by MD Judy Birmingham in OV> 01/20/24 0751 Tam Nichols DO IMG XR PROCEDURES Final Result documented in this encounter Visit Diagnoses Not on filedocumented in this encounter Care Teams Senior Front End Engineer Relationship Specialty Start Date End Date Ismael [place]ales MD [address] [place] [address] PCP - Devoted 08/27/20 Ismael Morales MD [address] [place] [address] PCP - General Internal Medicine 01/18/23 Saúl Wiggins MD [address]03 [facility] 2, [address] [place] [address] Referring Physician Cardiology 09/24/24 Harish Floyd MD [facility] [place] [address] Referring Physician Podiatry 09/24/24 Jelly Stokes, HÉCTOR [address] [place] [address] Licensed Practical Nurse Family Medicine 09/24/24 Sofía Bedolla OD Ophthalmology 09/12/23 documented as of this encounter
--- NOTE | 2025-02-13 14:09 | XR_ITS ---
The [address] [address] Patient Name: SUGAR ACUÑA MRN: [id number] date: 1940 Sex: M Assigned Patient Location: ER Current Patient Location: ER Accession/Order Number: [id number] Exam Date: 02/13/2025 14:30 Report Date: 02/13/2025 14:31 At the request of: KIMBERLI MCMILLAN MD Procedure: XR chest 1V Single view chest: CLINICAL HISTORY: Shortness of breath. History of COPD. COMPARISON: None FINDINGS: The heart is normal in size. No lung consolidation pneumothorax pleural effusion or free air. XR/XR chest 1V IMPRESSION: NO ACUTE PROCESS. Impression dictated by: Prateek Flood Jr., DKaelynOKaelyn 02/13/2025 2:31 PM Dictation Location: [place] [address] Electronically authenticated by: [id number] Y Date: 02/13/2025 14:31
--- NOTE | 2025-02-13 14:09 | ECG_ITS ---
The [facility] Test Date: 2025-02-13 Pat Name: SUGAR ACUÑA Department: Room: - Gender: Male Second Hand: : 1940 Requested By: [id number] Order Number: [id number] Reading MD: ALISSA MARR M.D. Measurements Intervals [place] Rate: 148 P: -85961 IN: -62340 QRS: -66 QRSD: 152 T: 73 QT: 378 QTc: 463 Interpretive Statements ATRIAL FLUTTER WITH 2:1 AV BLOCK 2450 Right bundle branch block 2630 Left anterior fascicular block [address] depression, possible subendocardial injury 4564 Twave abnormality, possible lateral ischemia 9150 abnormal ECG No previous ECG available for comparison Electronically Signed On 02-13-2025 19:36:28 EDT by ALISSA MARR M.D.
[2025-02-13 14:24] LABS: Basophils Percent Auto 0.4 % (0.2-2.0); Eosinophils Absolute Auto 0.1 10^3/uL (0.0-0.7); Eosinophils Percent Auto 0.9 % (0.9-7.0); Hematocrit 45.2 % (42.0-54.0); Hemoglobin 14.8 g/dL (14.0-18.0); Immature Granulocytes Abs Auto 0.02 10^3/uL (0.00-0.03); Immature Granulocytes Pct Auto 0.3 % (0.0-0.5); Lymphocytes Absolute Auto 1.4 10^3/uL (1.2-3.8); Lymphocytes Percent Auto 21.3 % (20.5-60.0); Mean Corpuscular HGB Conc 32.7 g/dL (29.9-35.2); Mean Corpuscular Hemoglobin 29.8 pg (25.9-34.0); Mean Corpuscular Volume 90.9 fL (80.0-94.0); Mean Platelet Volume 11.6 fL (9.5-13.5); Monocytes Absolute Auto 0.7 10^3/uL (0.3-0.8); Neutrophils Absolute Auto 4.5 10^3/uL (1.4-6.5); Neutrophils Percent Auto 66.1 % (43.0-75.0); Platelet Count 120 10^3/uL (150-450); Red Blood Count 4.97 10^6/uL (4.70-6.10); Red Cell Distribution Width 14.5 % (11.0-15.0); White Blood Count 6.8 10^3/uL (4.0-11.0)
[2025-02-13 14:36] LABS: Alanine Aminotransferase 12 U/L (16-63); Albumin Globulin Ratio 0.9; Albumin Level 3.6 g/dL (3.4-5.0); Alkaline Phosphatase 107 U/L (46-116); Anion Gap 8.7; Aspartate Amino Transferase 20 U/L (15-37); Bilirubin Total 0.6 mg/dL (0.2-1.0); Calcium 9.2 mg/dL (8.5-10.1); Carbon Dioxide 32.7 mmol/L (21.0-32.0); Chloride 98 mmol/L (98-107); Estimated GFR (African America >60 (>=60 mL/min/1.73m^2); Estimated GFR (Non-African Ame >60 (>=60 mL/min/1.73m^2); Globulin 3.8 g/dL; Glucose 121 mg/dL (74-106); Potassium 4.4 mmol/L (3.5-5.1); Sodium 135 mmol/L (136-145); Total Protein 7.4 g/dL (6.4-8.2)
[2025-02-13] MEDS: METHYLPREDNISOLONE SOD SUCC PF 125 MG/2 ML VIAL IVP (14:36)
[2025-02-13] MEDS: DILTIAZEM HCL 25 MG/5 ML VIAL 10 MG IV (14:38)
[2025-02-13 14:42] LABS: INR 1.08; Prothrombin Time 11.4 sec (9.0-11.6)
[2025-02-13 14:43] LABS: Troponin I High Sensitivity 38.7 pg/mL (4.0-76.1)
--- NOTE | 2025-02-13 15:23 | ECG_ITS ---
The [facility] Test Date: 2025-02-13 Pat Name: SUGAR ACUÑA Department: Room: - Gender: Male Fire Support Specialist: : 1940 Requested By: [id number] Order Number: [id number] Reading MD: ALISSA MARR M.D. Measurements Intervals [place] Rate: 95 P: -47362 CO: -28045 QRS: -69 QRSD: 144 T: 100 QT: 404 QTc: 456 Interpretive Statements 1210 Atrial fibrillation 2450 Right bundle branch block [address] depression, possible subendocardial injury or digitalis effect 19967 Twave abnormality, possible lateral ischemia or digitalis effect 7200 Abnormal left axis deviation 9150 abnormal ECG Compared to ECG 02/13/2025 14:05:21 Atrial fibrillation has replaced atrial flutter ST (T wave) deviation still present Possible ischemia still present Electronically Signed On 02-13-2025 19:37:47 EDT by ALISSA MARR M.D.
--- NOTE | 2025-02-13 15:26 | ED_ITS ---
HPI HPI - General Adult General Chief complaint: Shortness of Breath/Dyspnea Stated complaint: SOB Time Seen by Provider: 02/13/25 14:09 Mode of arrival: walk-in History of Present Illness HPI narrative: The patient is 84-year-old male is coming to us with a concern of shortness of breath, patient have a history of COPD he mentioned that he have a history of A- fib but he is not concerned about that because he mentioned every time he is stressed out he usually have his A-fib flares up and his heart rate usually is not above 100. The patient is denying any chest pain and he mentioned that his main concern to know if he have pneumonia or not. The patient has been having those symptoms of shortness of breath and cough for the last few days no fever and he does not report any increase in phlegm production with his cough. The patient is tachypneic when speaking but still speaking full sentences Related Data Home Medications ?Medication ?Instructions ?Recorded ?Confirmed Lactobacillus 1 tab PO DAILY 03/18/2401/26 acidophilus-Lactbacill.bifidus 1 billion cell oral wafer citalopram 20 mg tablet (Celexa) 20 mg PO DAILY 02/13/25 coenzyme Q10 100 mg capsule (Co 100 mg PO DAILY 02/13/25 Q-10) diltiazem HCl 180 mg 180 mg PO DAILY 03/18/24 tablet,extended release 24 hr (Cardizem LA) fluoride (sodium) 1.1 % dental 1 applic dental DAILY 0 03/18/24 02/13/25 paste (PreviDent 5000 Booster Plus) nitroglycerin 0.4 mg sublingual 0.4 mg sublingual Q5M 03/18/24 02/13/25 tablet pantoprazole 40 mg tablet,delayed 40 mg PO DAILY 03/1802/13/25 release (Protonix) paroxetine HCl 30 mg tablet 30 mg PO QAM 02/13/2501/26 Previous Rx's ?Medication ?Instructions ?Recorded doxycycline hyclate 100 mg tablet 100 mg PO BID 7 days #14 tabs 02/13/25 levalbuterol HCl 1.25 mg/3 mL 1.25 mg (3 mL) inhalatio n Q6H PRN 02/13/25 solution for nebulization shortness of breath or wheez ing #90 mL prednisone 20 mg tablet 40 mg (2 x 20 mg) PO DAILY 5 days 02/13/25 #10 tabs Allergies Allergy/AdvReac Type Severity Reaction Status Date / Time Iodinated Contrast Media Allergy Intermediate Rash Verified 03/18/24 17:00 Penicillins Allergy Intermediate Rash Verified 03/18/24 17:00 Opioid HPI Opioid Management Most Recent Opioid Data: Last Pain Scale 8 03/18/24, 17:43 Review of Systems ROS Status of ROS 10 or more systems reviewed and unremark able except as noted in history and below [facility] Medical History (Updated 02/13/25 @ 16:50 by Kaye Perez MD) History of chronic back pain ?Z87.39 - Personal history of other diseases of the musculoskeletal system and connective tissue (ICD-10) History of diverticulosis ?Z87.19 - Personal history of other diseases of the digestive system (ICD-10) History of asthma ?Z87.09 - Personal history of other diseases of the respiratory system (ICD- 10) History of depression ?Z86.59 - Personal history of other mental and behavioral disorders (ICD-10) Surgical History (Updated 03/18/24 @ 17:12 by Brian Hackett) History of hernia repair ?Z98.890 - Other specified postprocedural states (ICD-10) ?Z87.19 - Personal history of other diseases of the digestive system (ICD-10) History of esophagogastroduodenoscopy (EGD) ?Z98.890 - Other specified postprocedural states (ICD-10) History of colonoscopy ?Z98.890 - Other specified postprocedural states (ICD-10) History of abdominal aortic aneurysm (AAA) repair ?Z98.890 - Other specified postprocedural states (ICD-10) Exam Narrative Exam Narrative: Nurses notes and vital signs reviewed and patient is not hypoxic. General: Well-appearing and in no apparent distress. Skin: Warm, dry, no pallor noted. No rash. Head: Normocephalic, atraumatic. Neck: Supple, non-tender. Eye: Pupils are equal, round and EOMI. No scleral icterus. Cardiovascular:Irregular rate and Rhythm without murmur, gallop or rub. Respiratory: Bilateral expiratory lung wheezes and mild tachypnea no use of accessory muscles Back: No midline thoracic or lumbar vertebral tenderness. No CVA tenderness Musculoskeletal: normal ROM, no calf or popliteal tenderness, no lower extremity edema/swelling GI: Abdomen is soft, non-distended. Normal bowel sounds. No masses appreciated. No tenderness to palpation. No rebound, guarding, or rigidity noted. Neurological: A&O x4. No cranial nerve dysfunction observed. Constitutional Vital Signs, click to edit/add: Last Vital Signs Temp 97.6 F 02/13/25 16:56 Pulse 52 L 02/13/25 16:56 Resp 20 02/13/25 16:56 BP 136/87 02/13/25 16:56 Pulse Ox 96 02/13/25 16:56 O2 Del Method Room Air 02/13/25 16:56 Course Vital Signs Vital signs: Vital Signs Temperature 98.0 F 02/13/25 14:02 Pulse Rate 145 H 02/13/25 14:02 Respiratory Rate 26 H 02/13/25 14:02 Blood Pressure 134/86 02/13/25 14:02 Pulse Oximetry 95 02/13/25 14:02 Oxygen Delivery Method Room Air 02/13/25 14:02 Temperature 97.6 F 02/13/25 16:56 Pulse Rate 52 L 02/13/25 16:56 Respiratory Rate 20 02/13/25 16:56 Blood Pressure 136/87 02/13/25 16:56 Pulse Oximetry 96 02/13/25 16:56 Oxygen Delivery Method Room Air 02/13/25 16:56 Medical Decision Making MDM Narrative Medical decision making narrative: Upon arrival the patient was found to be in A-fib with heart rate of 140 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 --- to 140 The patient was consistently above 120 heart rate with A-fib RVR most of the time initially I did provide the patient with sentiment role for COPD management and also given 1 dose of Cardizem 10 mg to help control his heart rate which was enough to control his heart rate to 108 still in A-fib The patient was then provided with a levalbuterol and a Atrovent treatment after which she was feeling much better The patient chest x-ray showed no acute pathology and his CBC chemistry showed no acute pathology as well with a negative troponin and BNP of around 8000 The patient although I did explain to him the fact that his A-fib could have been exacerbated by his breathing treatment and the fact that he might need further management to his A-fib but the patient on multiple occasion is not interested in treatment for his A-fib at the moment because they think is just exacerbated by his COPD I provide the patient with a nebulizer for the levalbuterol and provide him with a levalbuterol prescription in addition to prednisone and doxycycline as a COPD management I did explain to the patient that in case he does not get any better he need to come back to the ER to be evaluated and admitted for further evaluation The patient understand that completely and he is feeling much better The patient is to follow up with primary care physician in next 2-3 days or to return to the emergency department should any of the signs or symptoms worsen or new symptoms develop. The patient agrees with the following Diagnosis and Treatment plan and the patient will be discharged home. Lab Data Labs: Lab Results 02/13/25 Range/Units 14:10 WBC 6.8 (4.0-11.0) 10^3/uL RBC 4.97 (4.70-6.10) 10^6/uL Hgb 14.8 (14.0-18.0) g/dL Hct 45.2 (42.0-54.0) % MCV 90.9 (80.0-94.0) fL MCH 29.8 (25.9-34.0) pg MCHC 32.7 (29.9-35.2) g/dL RDW 14.5 (11.0-15.0) % Plt Count 120 L (150-450) 10^3/uL MPV 11.6 (9.5-13.5) fL Neut % (Auto) 66.1 (43.0-75.0) % Lymph % (Auto) 21.3 (20.5-60.0) % [place] % (Auto) 11.0 (1.7-12.0) % Eos % (Auto) 0.9 (0.9-7.0) % Baso % (Auto) 0.4 (0.2-2.0) % Neut # (Auto) 4.5 (1.4-6.5) 10^3/uL Lymph # (Auto) 1.4 (1.2-3.8) 10^3/uL [place] # (Auto) 0.7 (0.3-0.8) 10^3/uL Eos # (Auto) 0.1 (0.0-0.7) 10^3/uL Baso # (Auto) 0.0 (0.0-0.1) 10^3/uL Abs Immat Gran (auto) 0.02 (0.00-0.03) 10^3/uL Imm/Tot Granulo (auto) 0.3 (0.0-0.5) % PT 11.4 (9.0-11.6) sec INR 1.08 Sodium 135 L (136-145) mmol/L Potassium 4.4 (3.5-5.1) mmol/L Chloride 98 (98-107) mmol/L Carbon Dioxide 32.7 H (21.0-32.0) mmol/L Anion Gap 8.7 BUN 24.0 H (7.0-18.0) mg/dL Creatinine 1.09 (0.70-1.30) mg/dL Est GFR ( Amer) >60 (>=60 mL/min/1.73m^2) Est GFR (Non-Af Amer) >60 (>=60 mL/min/1.73m^2) BUN/Creatinine Ratio 22.0 Glucose 121 H (74-106) mg/dL Calcium 9.2 (8.5-10.1) mg/dL Total Bilirubin 0.6 (0.2-1.0) mg/dL AST 20 (15-37) U/L ALT 12 L (16-63) U/L Alkaline Phosphatase 107 (46-116) U/L Troponin I High Sens 38.7 (4.0-76.1) pg/mL NT-Pro-B Natriuret Pep 8572.0 H* (<=1800.0) pg/mL Total Protein 7.4 (6.4-8.2) g/dL Albumin 3.6 (3.4-5.0) g/dL Globulin 3.8 g/dL Albumin/Globulin Ratio 0.9 Discharge Plan Discharge Chief Complaint: Shortness of Breath/Dyspnea Clinical Impression: Asthma exacerbation in COPD, A-fib Patient Disposition: Home, Self-Care Time of Disposition Decision: 16:50 Condition: Good Mode of Transportation: Private Vehicle Prescriptions / Home Meds: New prednisone 20 mg tablet 40 mg PO DAILY 5 Days Qty: 10 0RF levalbuterol HCl 1.25 mg/3 mL solution for nebulization 1.25 mg inhalation Q6H PRN (Reason: shortness of breath or wheezing) Qty: 90 0RF doxycycline hyclate 100 mg tablet 100 mg PO BID 7 Days Qty: 14 0RF No Action citalopram [Celexa] 20 mg tablet 20 mg PO DAILY coenzyme Q10 [Co Q-10] 100 mg capsule 100 mg PO DAILY diltiazem HCl [Cardizem LA] 180 mg tablet extended release 24 hr 180 mg PO DAILY Lactobacillus acidoph-L. bifid 1 billion cell wafer 1 tab PO DAILY Rx Instructions: administer (preferably) with milk nitroglycerin 0.4 mg tablet, sublingual 0.4 mg sublingual Q5M Rx Instructions: do not exceed 3 doses per episode pantoprazole [Protonix] 40 mg tablet,delayed release (DR/EC) 40 mg PO DAILY fluoride (sodium) [PreviDent 5000 Booster Plus] 1.1 % paste 1 applic dental DAILY paroxetine HCl 30 mg tablet 30 mg PO QAM Print Language: Frisian Instructions: A-fib (Atrial Fibrillation) (ED), COPD (Chronic Obstructive Pulmonary Disease) (DC) Referrals: SUGAR HARRISON [Primary Care Provider, Internal Medicine] - 1 week Discharge Date/Time: 02/13/25 17:11
[2025-02-13] MEDS: IPRATROPIUM BROMIDE 0.5 MG/2.5 ML VIAL.NEB IH (16:00)
[2025-02-13] MEDS: LEVALBUTEROL HCL 1.25 MG/3 ML VIAL NEB IH (16:00)
[2025-02-13 16:03] VITALS: PULSE 108; O2SAT 94
[2025-02-13 16:56] VITALS: BP 136/87; PULSE 52; TEMP 36.4; O2SAT 96
== END 2025-02-13 17:11 | disposition home or self-care (01) ==
PROVIDERS: Emergency Provider Emergency Medicine; PCP Internal Medicine
DX: J44.1 Chronic obstructive pulmonary disease with (acute) exacerbation (principal); I48.91 Unspecified atrial fibrillation; R06.02 Shortness of breath; R05.9 Cough, unspecified
CPT/HCPCS: 36415; 71045; 80053; 82805; 83880; 84484; 85025; 85610; 93005; 94640; 96374; 96375; 99285; J2919

== ENCOUNTER 2025-08-03 13:27 | Emergency (ER) | payer OTHER, SELFPAY ==
[2025-08-03] VITALS (9 sets, daily range): BP systolic 135–146; BP diastolic 85–86; PULSE 91–111; TEMP 36.4; O2SAT 94–97; BMI 22.0
--- NOTE | 2025-08-03 13:40 | ECG_ITS ---
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 Measurements Intervals Kelly Rate: 101 P: -05354 IN: -50607 QRS: -86 QRSD: 154 T: 81 QT: 414 QTc: 472 Interpretive Statements Atrial flutter with variable AV conduction 2450 Right bundle branch block 2630 Left anterior fascicular block 3524 Possible lateral myocardial infarction, age undetermined [address] depression, consistent with subendocardial injury 5220 Possible left ventricular hypertrophy 9150 abnormal ECG Compared to ECG 02/13/2025 14:45:34 Atrial flutter has replaced atrial fibrillation Left anterior fascicular block now present Myocardial infarct finding now present Left-axis deviation no longer presentST (T wave) deviation still present Electronically Signed On 08-04-2025 19:58:20 EST by ALISSA MARR M.D.
--- NOTE | 2025-08-03 13:40 | XR_ITS ---
The [address] [address] Patient Name: SUGAR ACUÑA MRN: [id number] date: 1940 Sex: M Assigned Patient Location: ED.MAIN Current Patient Location: ED.MAIN Accession/Order Number: [id number] Exam Date: 08/03/2025 14:11 Report Date: 08/03/2025 14:27 At the request of: KIMBERLI MCMILLAN MD Procedure: XR chest 1V XR chest 1V 08/03/2025 2:14 PM SIGNS AND SYMPTOMS: ^sob PROTOCOL: Frontal radiograph of the chest COMPARISON: 02/13/2025 FINDINGS: The trachea is midline. There is cardiomegaly. Atherosclerotic changes are noted in the thoracic aorta. There is a moderate right-sided pleural effusion with a collection along the minor fissure measuring 3.0 x 5.1 cm presumably representing a focal loculated effusion. There is hazy airspace opacity near the right lung base. The bony thorax is intact. Degenerative changes are noted in the shoulders and thoracic spine. XR/XR chest 1V IMPRESSION: There is a moderate right-sided pleural effusion with a collection along the minor fissure measuring 3.0 x 5.1 cm presumably representing a focal loculated effusion. There is hazy airspace opacity near the right lung base. Impression dictated by: Casper Song M.D. 08/03/2025 2:27 PM Dictation Location: [place] [address] Electronically authenticated by: [id number] Y Date: 08/03/2025 14:27
--- NOTE | 2025-08-03 14:16 | ED.GENADUL1 ---
HPI HPI - General Adult General Chief complaint: Shortness of Breath/Dyspnea Stated complaint: SOB Time Seen by Provider: 08/03/25 13:32 Source: patient Mode of arrival: walk-in Limitations: no limitations History of Present Illness HPI narrative: 85 years old male who supposedly have a history of coronary artery disease hypertension as well as COPD and congestive heart failure, the patient is not a good historian he does not clarify what he did to his workup before and which senior research consultant or pulmonary doctors saw him before, but he is presenting here to us tachypneic complaining of shortness of breath that has been going on for a while, according to the patient for the last 6 months at least he has been getting short of breath progressively He denies any chest pain, but he does have orthopnea he have a cough that is chronic, no nausea no vomiting no diarrhea The patient was evaluated before in January for something similar to this at that time he did not want to be admitted or evaluated inpatient setting but today he is agreeable to get help to get better Related Data Home Medications ?Medication ?Instructions ?Recorded ?Confirmed nitroglycerin 0.4 mg sublingual 0.4 mg sublingual Q5M 03/18/24 08/03/25 tablet pantoprazole 40 mg tablet,delayed 40 mg PO DAILY 03/18/24 08/03/25 release (Protonix) paroxetine HCl 30 mg tablet 30 mg PO QAM 02/13/25 08/03/25 albuterol sulfate 90 mcg/actuation 2 puff inhalation Q4H PRN 08/03/25 08/03/25 aerosol inhaler bronchospasm furosemide 20 mg tablet 20 mg PO DAILY 08/03/25 08/03/25 levalbuterol HCl 1.25 mg/3 mL 1.25 mg inhalation Q6H PRN 08/03/25 08/03/25 solution for nebulization shortness of breath or wheezing metoprolol succinate 50 mg 50 mg PO DAILY 08/03/25 08/03/25 tablet,extended release 24 hr potassium chloride 10 mEq 10 meq PO DAILY PRN hypokalemia 08/03/25 08/03/25 tablet,extended release(part/cryst) Allergies Allergy/AdvReac Type Severity Reaction Status Date / Time Iodinated Contrast Media Allergy Intermediate Rash Verified 08/03/25 13:31 Penicillins Allergy Intermediate Rash Verified 12/08/25 13:31 Opioid HPI Opioid Management Most Recent Opioid Data: Last Pain Scale 8 03/18/24, 17:43 Review of Systems ROS Status of ROS 10 or more systems reviewed and unremarkable except as noted in history and below [facility] Medical History (Updated 08/03/25 @ 15:09 by Kaye Perez MD) Heart failure ?I50.9 - Heart failure, unspecified (ICD-10) COPD (chronic obstructive pulmonary disease) ?J44.9 - Chronic obstructive pulmonary disease, unspecified (ICD-10) History of chronic back pain ?Z87.39 - Personal history of other diseases of the musculoskeletal system and connective tissue (ICD-10) History of diverticulosis ?Z87.19 - Personal history of other diseases of the digestive system (ICD-10) History of asthma ?Z87.09 - Personal history of other diseases of the respiratory system (ICD-10) History of depression ?Z86.59 - Personal history of other mental and behavioral disorders (ICD-10) Surgical History (Updated 03/18/24 @ 17:12 by Brian Hackett) History of hernia repair ?Z98.890 - Other specified postprocedural states (ICD-10) ?Z87.19 - Personal history of other diseases of the digestive system (ICD-10) History of esophagogastroduodenoscopy (EGD) ?Z98.890 - Other specified postprocedural states (ICD-10) History of colonoscopy ?Z98.890 - Other specified postprocedural states (ICD-10) History of abdominal aortic aneurysm (AAA) repair ?Z98.890 - Other specified postprocedural states (ICD-10) Social History Little interest or pleasure in doing things: not at all Feeling down, depressed, or hopeless: not at all Exam Narrative Exam Narrative: Nurses notes and vital signs reviewed and patient is not hypoxic. General: Well-appearing and in no apparent distress. Skin: Warm, dry, no pallor noted. No rash. Head: Normocephalic, atraumatic. Neck: Supple, non-tender. Eye: Pupils are equal, round and EOMI. No scleral icterus. Cardiovascular: irregular rate and Rhythm without murmur, gallop or rub. Respiratory: No accessory muscle use , but the patient does get tachypneic when speaking for more than 1 word sentences Lungs there is crackles heard in both lung avila and there is distant breathing sound bilaterally in the upper field Chest Wall: no tenderness Back: No midline thoracic or lumbar vertebral tenderness. No CVA tenderness Musculoskeletal: normal ROM, no calf or popliteal tenderness, mild left ankle swelling GI: Abdomen is soft, non-distended. Normal bowel sounds. No masses appreciated. No tenderness to palpation. No rebound, guarding, or rigidity noted. Neurological: A&O x4. No cranial nerve dysfunction observed. No truncal ataxia. Moves all extremities. Sensation intact. Psychiatric: Cooperative and interactive. Normal mood and affect. Constitutional Vital Signs, click to edit/add: Last Vital Signs Temp 97.5 F L 08/03/25 13:31 Pulse 92 H 08/03/25 15:02 Resp 15 08/03/25 15:02 BP 135/85 08/03/25 15:27 Pulse Ox 94 L 08/03/25 15:02 O2 Del Method Room Air 08/03/25 13:31 Course Vital Signs Vital signs: Vital Signs Temperature 97.5 F L 08/03/25 13:31 Pulse Rate 111 H 08/03/25 13:31 Respiratory Rate 18 08/03/25 13:31 Blood Pressure 146/86 H 08/03/25 13:31 Pulse Oximetry 97 08/03/25 13:31 Oxygen Delivery Method Room Air 08/03/25 13:31 Temperature 97.5 F L 08/03/25 13:31 Pulse Rate 92 H 08/03/25 15:02 Respiratory Rate 15 08/03/25 15:02 Blood Pressure 135/85 08/03/25 15:27 Pulse Oximetry 94 L 08/03/25 15:02 Oxygen Delivery Method Room Air 08/03/25 13:31 Medical Decision Making [facility] Narrative Medical decision making narrative: The patient EKG in the ER showing sinus rhythm with A-fib with a heart rate of 101 there is a lot of nonspecific changes no ST elevation but there is ST depression noted in multiple leads mostly in the lateral V5 and V6 and it was noted in the previous EKGs as well The patient chest x-ray shows moderate size effusion with a loculated fluid in the right side CBC and chemistry shows no leukocytosis no acute kidney injury but the patient BN pep is elevated The patient BNP was around 8000 and it was noted before that he had similar finding but then he also refused full evaluation for his A-fib The initial discussion of the case with the hospitalist on-call Dr. Titus he recommended that the patient be transferred to a facility where they can do a pleural effusion drainage which is why I did put a call for [facility] and I spoke with who accepted the patient The plan was to transfer the patient by the ambulance but the patient refused that he said that he is not going to go to the hospital unless he goes by private car The patient is signing himself AGAINST MEDICAL ADVICE and driving himself to the facility by private car knowing the risk that he is putting his life in, by doing this but he is still adamant on doing it He was instructed that he need to drive directly to the other facility Lab Data Labs: Lab Results 08/03/25 Range/Units 14:00 WBC 5.4 (4.0-11.0) 10^3/uL RBC 4.63 L (4.70-6.10) 10^6/uL Hgb 13.2 L (14.0-18.0) g/dL Hct 42.6 (42.0-54.0) % MCV 92.0 (80.0-94.0) fL MCH 28.5 (25.9-34.0) pg MCHC 31.0 (29.9-35.2) g/dL RDW 15.6 H (11.0-15.0) % Plt Count 129 L (150-450) 10^3/uL MPV 11.5 (9.5-13.5) fL Neut % (Auto) 63.7 (43.0-75.0) % Lymph % (Auto) 22.9 (20.5-60.0) % [place] % (Auto) 9.1 (1.7-12.0) % Eos % (Auto) 3.4 (0.9-7.0) % Baso % (Auto) 0.7 (0.2-2.0) % Neut # (Auto) 3.4 (1.4-6.5) 10^3/uL Lymph # (Auto) 1.2 (1.2-3.8) 10^3/uL [place] # (Auto) 0.5 (0.3-0.8) 10^3/uL Eos # (Auto) 0.2 (0.0-0.7) 10^3/uL Baso # (Auto) 0.0 (0.0-0.1) 10^3/uL Abs Immat Gran (auto) 0.01 (0.00-0.03) 10^3/uL Imm/Tot Granulo (auto) 0.2 (0.0-0.5) % PT 11.6 (9.0-11.6) sec INR 1.11 Sodium 140 (136-145) mmol/L Potassium 4.3 (3.5-5.1) mmol/L Chloride 103 (98-107) mmol/L Carbon Dioxide 34.3 H (21.0-32.0) mmol/L Anion Gap 7.0 BUN 28.0 H (7.0-18.0) mg/dL Creatinine 1.17 (0.70-1.30) mg/dL Est GFR ( Amer) >60 (>=60 mL/min/1.73m^2) Est GFR (Non-Af Amer) 60 (>=60 mL/min/1.73m^2) BUN/Creatinine Ratio 23.9 Glucose 107 H (74-106) mg/dL Calcium 9.2 (8.5-10.1) mg/dL Magnesium 2.0 (1.8-2.4) mg/dL Total Bilirubin 0.7 (0.2-1.0) mg/dL AST 30 (15-37) U/L ALT 29 (16-63) U/L Alkaline Phosphatase 116 (46-116) U/L Troponin I High Sens 30.9 (4.0-76.1) pg/mL NT-Pro-B Natriuret Pep 8103.0 H* (<=1800.0) pg/mL Total Protein 6.8 (6.4-8.2) g/dL Albumin 3.3 L (3.4-5.0) g/dL Globulin 3.5 g/dL Albumin/Globulin Ratio 0.9 Discharge Plan Discharge Stand Alone Forms: Portal Instructions Chief Complaint: Shortness of Breath/Dyspnea Clinical Impression: Congestive heart failure, Pleural effusion Patient Disposition: Left Against Medical Advice Time of Disposition Decision: 16:21 Condition: Good Prescriptions / Home Meds: No Action nitroglycerin 0.4 mg tablet, sublingual 0.4 mg sublingual Q5M Rx Instructions: do not exceed 3 doses per episode pantoprazole [Protonix] 40 mg tablet,delayed release (DR/EC) 40 mg PO DAILY paroxetine HCl 30 mg tablet 30 mg PO QAM albuterol sulfate 90 mcg/actuation HFA aerosol inhaler 2 puff INHALATION Q4H PRN (Reason: bronchospasm) furosemide 20 mg tablet 20 mg PO DAILY metoprolol succinate 50 mg tablet extended release 24 hr 50 mg PO DAILY potassium chloride 10 mEq tablet,ER particles/crystals 10 meq PO DAILY PRN (Reason: hypokalemia) Rx Instructions: TAKE IF LASIX IS TAKEN levalbuterol HCl 1.25 mg/3 mL solution for nebulization 1.25 mg INHALATION Q6H PRN (Reason: shortness of breath or wheezing) Print Language: Kinyarwanda Referrals: SUGAR HARRISON [Primary Care Provider, Internal Medicine] - 1 week
[2025-08-03 14:23] LABS: Hematocrit 42.6 % (42.0-54.0); Hemoglobin 13.2 g/dL (14.0-18.0); Immature Granulocytes Abs Auto 0.01 10^3/uL (0.00-0.03); Immature Granulocytes Pct Auto 0.2 % (0.0-0.5); Lymphocytes Absolute Auto 1.2 10^3/uL (1.2-3.8); Mean Corpuscular HGB Conc 31.0 g/dL (29.9-35.2); Mean Corpuscular Hemoglobin 28.5 pg (25.9-34.0); Mean Corpuscular Volume 92.0 fL (80.0-94.0); Platelet Count 129 10^3/uL (150-450); Red Blood Count 4.63 10^6/uL (4.70-6.10); White Blood Count 5.4 10^3/uL (4.0-11.0)
[2025-08-03 14:31] LABS: INR 1.11; Prothrombin Time 11.6 sec (9.0-11.6)
[2025-08-03 14:44] LABS: Alanine Aminotransferase 29 U/L (16-63); Albumin Globulin Ratio 0.9; Albumin Level 3.3 g/dL (3.4-5.0); Alkaline Phosphatase 116 U/L (46-116); Anion Gap 7.0; Aspartate Amino Transferase 30 U/L (15-37); Blood Urea Nitrogen 28.0 mg/dL (7.0-18.0); Carbon Dioxide 34.3 mmol/L (21.0-32.0); Chloride 103 mmol/L (98-107); Estimated GFR (African America >60 (>=60 mL/min/1.73m^2); Estimated GFR (Non-African Ame 60 (>=60 mL/min/1.73m^2); Globulin 3.5 g/dL; Glucose 107 mg/dL (74-106); Magnesium 2.0 mg/dL (1.8-2.4); Potassium 4.3 mmol/L (3.5-5.1); Sodium 140 mmol/L (136-145); Total Protein 6.8 g/dL (6.4-8.2)
[2025-08-03 14:50] LABS: Calcium 9.2 mg/dL (8.5-10.1)
[2025-08-03] MEDS: FUROSEMIDE 20 MG/2 ML VIAL IVP (15:27)
== END 2025-08-03 16:52 | disposition short-term general hospital (02) ==
PROVIDERS: Emergency Provider Emergency Medicine; PCP Internal Medicine
DX: J90 Pleural effusion, not elsewhere classified (principal); I11.0 Hypertensive heart disease with heart failure; I50.9 Heart failure, unspecified; I48.91 Unspecified atrial fibrillation; Z53.29 Procedure and treatment not carried out because of patient's decision for other reasons
CPT/HCPCS: 36415; 71045; 80053; 83735; 83880; 84484; 85025; 85610; 93005; 96374; 99285; J1938

== ENCOUNTER 2025-08-17 19:50 | Emergency (ER) | payer OTHER, SELFPAY ==
--- OUTSIDE RECORDS SUMMARY | 2024-12-29 10:00 | XMS_ITS ---
Author Organization [facility] Address [address] [place] [address] [address] [place] [address] [place] [address] Care Team Providers Care Senior International Tax Manager Name Role Phone Ismael Morales MD Primary Care Provider UnavailHarish Byrne Unavailable [phone] REASON FOR VISIT rfc Encounters Encounter Location Date Provider Diagnosis [facility] [address] [place] [place] [address] 12/29/2024 Harish Floyd Plan Of Treatment Next Appt Details Provider Name:Harish keene, 10/05/2025 03:30:00 PM, [address] [place] [address] [address], [address], [place], [address], Progress Notes * Ismael ACUÑA GDOB:[birth year] (85 yo M)Acc No.[id number]:12/29/2024 Patient:?Ismael Acuña :?ALEXIS MuirMDOB:1940???Age:84 Y???Sex: MaleDate:12/29/2024Phone:Address:[address] [place] [address] [place], [id number]: Ismael Morales MD Subjective: * Chief Complaints: * R fc * Electronic signature of Harihs Floyd DPM on 08/17/2025 at 08:59 PM ESTSign off status: Pending * Provider: Candelario Floyd DPM Date: 0 12/29/2024 Generated for Printing/Faxing/eTransmitting on:?08/17/2025 08:59 PM EST
--- OUTSIDE RECORDS SUMMARY | 2025-08-06 12:45 | XMS_ITS | Encounter Summary ---
Author Name Emmanuelle De Jesus Address [address] [place] [address] Organization [facility] Address [address] [place] [address] Medications * levalbuterol hcl 1.25 mg/3ml nebulized soln: * coq10 200 mg capsule: Take 1 capsule by mouth once daily * PROBIOTIC TABLET: Take 1 tablet by mouth once daily * paroxetine hcl 30 mg tablet: * metoprolol succinate er 50 mg tablet er 24 hr: * albuterol sulfate hfa 108 (90 base) mcg/act aerosol soln: * pantoprazole sodium [address]: Allergies * Statins * Lisinopril * Codeine Assessment and Plan Patient Currently Located in their home state of [place], YES Assessment Type: [facility] Express Initial Visit ? [facility] Initial Visit ? How are you feeling today? Are you currently experiencing symptoms or worried about needing toreturn to the hospital?: No concerns reported at this time In your own words, tell me what brought you into the hospital?: I am having trouble breathing . I have CHF Would you say your needs were met in the hospital/ED?: YES Do you have a PCP appointment scheduled within 14 days of your discharge?: PCP visit scheduled Do you have a Specialist appointment scheduled within 14 days of your discharge?: Speciality visit scheduled What is the date of the patient's scheduled PCP visit?: 2025-08-07 What is the date of the patient's scheduled visit with the specialist?: 2025-09-28 Do you have any questions about your discharge instructions or new medications?: NO Have you picked up your medications?: Yes Care Coordination Needs: No SDOH Support Needed: No Does this patient require a follow-up call?: Not at this time Is there anyone you???d like us to speak to on your behalf about your health?: No Section Completed: Yes
--- OUTSIDE RECORDS SUMMARY | 2025-08-07 09:45 | XMS_ITS | Encounter Summary ---
Author Organization [facility] Address [address] [facility] [place] [address] Care Team Providers Care Assistant Program Manager Name Role Phone Ismael Morales MD Unavailable [phone] Ismael Morales MD Primary Care Provider [phone] Saúl Wiggins MD Unavailable [phone] Harish Floyd MD Unavailable [phone] Jelly Stokes LPN Unavailable [phone] Reason for Visit * ReasonCommentsHospital Follow-upPt was at [facility] 08/03-08/05 for SOB. Pt was originally at [facility], they found fluid around his lungs, they sent him to [facility] to have it drained, but they did not do that Encounter Details DateTypeDepartmentCare Team (Latest Contact Info)Zohpncllgvu40/12/2025 9:45 AM ESTOffice Visit [facility] [address] [facility] [address] [place] [address] Tegan Melvin NP [address] [facility] [address] [place] [address] Chronic systolic congestive heart failure (HCC) (Primary [...] of coffee per dayPHQ-2AnswerDate RecordedPatient Health Questionnaire-2 [id number] and Gender InformationValueDate RecordedSex Assigned at BirthNot on fileLegal QgcJdha9911/08/2022 6:34 PM EDT Gender IdentityNot on fileSexual OrientationNot on fileOccupationIndustryJob Start DateJob 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, engineerNot on fileNot on fileNot on file documented as of this encounter Last Filed Vital Signs Vital SignReadingTime TakenCommentsBlood Mnvmjseb859/6808/07/2025 10:02 AM EST Tixjx271208/07/2025 10:02 AM ESTTemperature--Respiratory Rate--Oxygen Saturation-- Inhaled Oxygen Concentration--Cyahle99 kg (141 lb)08/07/2025 10:02 AM ESTHeight 170.2 cm (5' 7 )08/07/2025 10:02 AM ESTBody Mass Index22.0808/07/2025 10:02 AM ESTdocumented in this encounter Progress Notes * Tegan Melvin, MINERAL ECONOMIST - 08/07/2025 9:45 AM EST Images from the original note were not included. Ismael Andres is a 85 y.o. male presents with chief complaint of Hospital Follow-up (Pt was at [facility] 08/03-08/05 for SOB. [facility], theysent him to [facility] to have it drained, but they did [...] had difficulty scheduling an appointment with a manager net, with a current wait time of 3 [...] at risk (06/18/2025) [facility] PHQ-2 Patient Health Questionnaire-2 Score: 0 FAMILY [...] needs to be completed before seeing the manager net. 4. Hyperlipidemia: Cholesterol levels checked in 08/2024 [...] Plan of Treatment DateTypeDepartmentCare Team (Latest Contact Info)Qovejforphk83/23/2026 4:00 PM ESTOffice Visit [facility] [place] [facility] [address] [place] [address] documented as of this encounter Visit Diagnoses Diagnosis Chronic systolic congestive heart failure (HCC)- Primary PAF (paroxysmal atrial fibrillation) (HCC) Atrial fibrillation Chronic obstructive pulmonary disease, unspecified COPD type (HCC) Mixed hyperlipidemia documented in this encounter Care Teams Team MemberRelationshipSpecialtyStart DateEnd Date Ismael Morales MD [address] [place] [address] PCP - [facility]08/27/20 Ismael Morales MD [address] [place] [address] PCP - GeneralInternal Medicine01/18/23 Saúl Wiggins MD [address] [facility] [address] [place] [address] Referring PhysicianCardiology09/24/24 Harish Floyd MD [facility] [place] [address] Referring PhysicianPodiatr09/24/24 Jelly Stokes LPN [address] [place] [address] Licensed Practical NurseFamily Medicine09/24/24 Sofía Bedolla OD Ophthalmology09/12/23documented as of this encounter
--- OUTSIDE RECORDS SUMMARY | 2025-08-12 19:47 | XMS_ITS | Continuity of Care Document ---
Author Organization [facility] Address [address] [place] [address] Phone Care Team Providers Care It Project Lead Name Role Phone Ismael Morales MD Primary Care Provider Ismael Morales MD Attending Provider Trent Temple MD Admit Provider Trent Temple MD Attending Provider Ismael Morales MD Other Provider Georgi Medeiros MD Attending Provider Care Teams Patient Care Team Team Status: Active Member Role/Relationship Status Zuleima Morales MD Primary Care Provider Active Visit Care Team Team Status: Inactive Member Role/Relationship Status Dates Ismael Morales MD Primary Care Provider Active St art: July 31, 2025 End: July 31, 2025Robert Alfie Morales ProviderActiveStart: July 31, 2025 End: July 31, 2025 Visit Care Team Team Status: Inactive Member Role/Relationship Status Dates Ismael Morales MD Primary Care Provider Active St art: August 03, 2025 End: August 05reMitra Nathan ProviderActiveStart: August 03, 2025 End: August 05Alfie Riojas ProviderActiveStart: August 03, 2025 End: August 05, 2025 Patient Care Team Team Status: Active Member Role/Relationship Status Zuleima Morales MD Primary Care Provider Active St art: August 12, 2025 Ismael Morales MDOther ProviderActiveStart: August 12, 2025 Georgi Medeiros MDAttending ProviderActiveStart: August 12, 2025 Chief Complaint and Reason for Visit Chief Complaint Admit Date I50.22 July 31, 2025 1 0:35am Congestive Heart Failure August 03, 2 025 5:19pm J44.9 I50.22 August 12, 2025 2:00pm Reason for Visit Admit Date Atrial fibrillation with RVR July, 2024 5:19pm Coronary artery disease August 03 5:19pm Dyspnea August 03, 2025 5 :19pm HFrEF (heart failure with reduced ejecti on fraction) August 03, 2025 5:19pm History of heart artery stent August 032024 5:19pm Noncompliance August 03, 2025 5 :19pm Weakness August 03, 2025 5 :19pm Reason for Referral Type Reason(s) Provider Provider Contact Information P [facility] Address Start Date You have been scheduled for a follow up appointment for the following date and time, please call to reschedule if needed. You will be seen by the nurse practitioner.Ismael Morales MDWork Phone: [phone] [facility] [address] [place] [address] Health Concerns Concerns Start Date A [facility] screening has identified you as FRAIL or AT RISK FOR FRAILTY. This puts you at a higher risk for infection, illness, falls, and other injuries. Here are four ways to help you reduce your risk of frailty: 1. IDENTIFY EARLY SIGNS OF FRAILTY ??? Discuss contributing factors and concerns with your doctor 2. BE ACTIVE ??? Walking and light strengthening exercises will help reduce weakness 3. EAT WELL ??? Aim for three healthy meals a day that are high in protein 4. THINK POSITIVE ??? Keep your mind active by being sociable and continuing to learn References: Stay Strong: Four Ways to Beat the Frailty Risk [email or web address] [email or web address]-[email or web address]/iyvb-hvpsba-bmmg- qrvr-qq-yrzr-the-fra ilty-risk Allergies, Adverse Reactions, Alerts Allergen Type Severity Reaction Last Updated Verified Status Comments Iodinated Contrast Media Allergy Severe Anaphylaxis Nicole 11th, 2025 3:41pm Yes Active Patient has reacted to IV contrast dye in the past pt has used albuterollisinoprilAllergyModeratesuicidal ideationsJuly 2024 3:42pmYesActivecodeineAllergyUnknownHallucinatingJuly 2024 3:41pmYesActive penicillin VAllergyUnknownswelling of lip/tongue/throatJuly 2024 3:41pmYes ActivePenicillinsAllergyUnknownSwelling of Lip/Tongue/ThroatJuly 2024 3:41pmYesActive Social History Smoking Status Status Start Date End Date Date of Observa tion Smokes tobacco daily (finding) August 04, 2025 2:11pm Observation Status Observation Response Date of Response Legal Sex [facility] (finding) [facility] Family History Relationship Condition Age at Onset Recorded Date/T luis father Heart disease Unknown Malignant neoplasmUnknown Problems Active Problems Problem Diagnosis/Recorded Date Onset Date Stat us Left lower quadrant pain September 03, 2020 5:26pm Unkn own Active UTI (urinary tract infection) January 19, 2024 4:42pm Un known Active Hydronephrosis August 20, 2020 5:33am Unknown Active Atherosclerosis of right cor onary artery September 08, 2020 12:22pm Unknown Active Complete small bowel obstruction January 04, 2024 7:31pm Unknown Active COVID-19 August 07, 2020 1:00pm Unknown A ctive Acute respiratory failure with hypoxia August 07, 2020 5:57pm Unknown Active Coronary artery disease September 03, 2020 12:20pm Unkn own Active HFrEF (heart failure with re duced ejection fraction) August 11, 2020 12:26pm Unknown Active CHF (congestive heart failure) August 07, 2020 1:0 0pm Unknown Active Aortic aneurysm August 11, 2020 12:26pm Unknown Active Depression August 09, 2020 7:17pm Unknown A ctive History of diverticulitis August 20, 2020 10:48am Unknown Active Diverticulitis of large inte meir with abscess without bleeding August 25, 2020 5:44pm Unknown Active Hemoperitoneum January 06, 2024 7:35pm Unknown Acti ve Femoral hernia January 05, 2024 10:24am Unknown Act herman Mitral regurgitation August 11, 2020 12:26pm Unkno wn Active Chronic systolic heart failure August 21, 2020 2:1 4pm Unknown Active Acute on chronic systolic heart failure August 07, 2020 5:57pm Unknown Active Viral illness January 18, 2023 7:41pm Unknown Activ e Hydroureter August 20, 2020 1:02am Unknown A ctive Acute bronchitis September 16, 2017 9:00pm Unknown Active Weakness September 11, 2019 2:54pm Unknown Ac tive Hypoxia August 07, 2020 1:00pm Unknown A ctive Intra-abdominal abscess August 20, 2020 1:00am Unk nown Active Incarcerated inguinal hernia January 04, 2024 7:31pm Unk nown Active GERD (gastroesophageal reflux disease) August 09, 2020 7:17pm Unknown Active Abdominal fluid collection August 21, 2020 2:14pm Unknown Active Hydronephrosis, left September 03, 2020 5:26pm Unknown Active Rectus sheath hematoma January 06, 2024 7:35pm Unknown Active Hypotension January 06, 2024 1:30pm Unknown Active Acute hyponatremia August 24, 2020 7:15pm Unknown Active Inactive/Resolved Problems Problem Diagnosis/Recorded Date Onset Date Stat us AMAN (acute kidney injury) January 19, 2024 5:53pm Unknow n Resolved Noncompliance September 05, 2020 11:08am Unknown Resolved HFrEF (heart failure with re duced ejection fraction) August 04, 2025 2:16pm Unknown Resolved Acute hypoxic respiratory failure January 07, 2024 1:07p m Unknown Resolved Impaired mobility and activi ties of daily living January 09, 2024 11:42am Unknown Resolved Acute exacerbation of CHF (c ongestive heart failure) March 06, 2025 6:19pm Unknown Resolved History of heart artery stent September 11, 2019 1:04p m Unknown Resolved Coronary artery disease September 08, 2020 12:22pm Unk nown Resolved Chronic kidney disease (CKD) stage G3b/A1, moderately decreased glomerular filtration rate (GFR) between 30-44 mL/min/1.73 square meter and albuminuria creatinine ratio less than 30 mg/g January 06, 2024 12:25pm Unknown Resolved A-fib September 02, 2020 2:16pm Unknown Res olved Diverticulitis September 29, 2019 12:54pm Unknown Resolved Diverticulitis September 03, 2020 5:26pm Unknown R esolved Dyspnea August 03, 2025 6:44pm Unknown Re solved Ischemic cardiomyopathy January 07, 2024 2:15pm Unknown Resolved Atrial fibrillation, persistent September 04, 2020 12:3 7pm Unknown Resolved Weakness January 19, 2024 1:20pm Unknown Resolv ed Postoperative seroma January 28, 2024 5:20am Unknown Resolved Paroxysmal A-fib September 06, 2020 4:14pm Unknown Resolved COPD (chronic obstructive pu lmonary disease) with acute bronchitis May 20, 2023 4:59pm Unknown R esolved Constipation January 19, 2024 4:42pm Unknown Resolv ed Constipation January 19, 2024 5:53pm Unknown Resolv ed Atrial fibrillation with RVR January 07, 2024 2:14pm Unk nown Resolved Atrial flutter with rapid ve ntricular response March 06, 2025 6:19pm Unknown Resolved Volume depletion January 06, 2024 1:30pm Unknown Re solved Hypokalemia January 23, 2024 12:53pm Unknown Resol ismael Lactic acidosis January 20, 2024 11:10am Unknown Re solved Medications Medication Status Dose Units Route Directions Qty Days Refills S tart Date Stop Date End Date Reason(s) Instructions Adherence Albuterol Sulfate 2.5 mg /3 mL (0.083 %) solution for nebulization Discontinued 2.5 MG INHALATION Q4H as need ed for shortness of breath or wheezing 90 0September 16, 2017 12:00e 2017 11:08pmPrednisone 20 mg tablet Hpclxqmwdszn01DJMUVozhr8651Dhagkas 2017 12:uary 2017 12:00am September 21, 2017 12:03amadminister with food or milkLevofloxacin (Levaquin) 750 mg bzwtxjVmrmvtaxwbep594JLFUXkghs73504Bdnoqyv 2017 12:00January 2017 12:00January 2017 12:02amIpratropium [place] 0.02 % solution Discontinued0.4JDMACCWNJUKXW0K516Rsifchp 2017 12:002017 11:08pmCarvedilol 6.25 mg tabletDiscontinued6.25MGPOTwice dailyJune 2017 11:00pmJanuary 2019 1:02pmIsosorbide Mononitrate 30 mg tablet extended release 24 teBqcgjtvgejst06CNJWZeqsqOjoe 29th, 2018 11:00pmSeptember 11, 2019 1:02pmClopidogrel 75 mg njhqohRfyhbxiwdvfo08VRKCUiuzsEhow 29th, 2018 11:00pm September 11, 2019 1:02pmLosartan 25 mg xbvfgdZjgcvvnodkbt94JMCFOgsddTzep 29th, 2018 11:00pmSeptember 11, 2019 1:02pmNitroglycerin 0.4 mg tablet, sublingual Ufkaskuxqkvj8SFIUVDTTIMKSMWt Directed as needed for Chest PainJun2017 11:00pmSeptember 2022 2:31pmRosuvastatin 5 mg mmqbnqNntezxxwomgu2HQGRLxsrp February 22, 2018 11:00pmJanuary 2019 1:03pmPrednisone 10 mg Tablet Ogwnpvxytbcx79NSOYSapua019Xecp 29th, 2018 11:00pmSeptember 11, 2019 1:03pm administer with food or milkFurosemide 20 mg cuyrkcQcjzlgrdwivj10MLKXUlmqw August 09, 2020 12:00amDecebenson hospital 2019 12:32pmDexamethasone 6 mg Tablet Gairpzbqnqji3AXWEUuslm530Pdjxfpyd 16th, 2020 12:00amDeb[facility] 2019 1:59pm Spironolactone 25 mg EwcorvVxxmuqqiqlfx30.1ZMMSNdsqd118Vjsyipfn 16th, 2020 12:00amOctcarroll county memorial hospital 2020 2:03pmCarvedilol 3.125 mg TabletDiscontinued3.125MGPO Twice daily with islab966QamzlonnAugust 11, 2020 12:00amJanshriners hospital 2020 2:12pm Lisinopril 5 mg FsawtwHshsaqdocmrp8UEXQPgtti041Mofzrrsr 16th, 2020 12:00am June 09, 2021 2:02pmFurosemide 40 mg PuqnheOqdjcryzxqqi82OYGSXbyan at 0800 3002019 12:00amOctcarroll county memorial hospital 2020 2:02pmOndansetron 4 mg Tablet,RwspoyuxaostrgChfbaclcgmaj3SHSSztbpu 6 to 8 hours as needed for Qmwzyg806 August 22, 2020 12:00amOctober 2020 2:03pmOndansetron 4 mg tablet,oofjajxzebbjdbNrznfbfyudtc7YHFEH1S978Ivo 2022 11:00pmSeptember 2022 2:31pmPrednisone 20 mg tabletDiscontinued0.Route.LIOZYNX284Hvivuvaei 23rd, 2023 11:00pmMay 2023 6:13pm2 tabs a day for 2 days, 1 tabs a day for 3 daysDoxycycline Hyclate 100 mg ydvcndBvldtailnpqs873IDZXIoiyc iprke3995 May 19, 2023 11:00pmMay 2023 6:14pmAmiodarone 200 mg Tablet Discontinued0.ROUTE.QEFZDRK690Oci 17th, 2024 11:00pmJune 2023 11:09amTake 2 TABS TWICE A DAY (until 01/20/24) then start 1 TAB ONCE DAILY (from 01/21/24). Diltiazem Hcl 180 mg Capsule,Extended Release 12tsAvvyeqoyjbzv537BNWGDakea336Zvd 2023 11:00pmJuly 2024 4:20pmLisinopril 5 mg ptmeqtTtgzlkoqzssy0XJGS Njrjf066PwbJanuary 13, 2024 11:00pmMay 2023 10:00amNaproxen (Naprosyn) 500 mg fjnlntDfzngnmjxbvu827BVLESgfsq daily as needed for tssk9663Aotj 2023 11:00pmJune 2023 11:10amCarvedilol 6.25 mg tabletDiscontinued6.25MGPOTwice dailyJuly 2024 11:00pmDecember 2024 11:09amFreeTextSi tablet with food Orally Twice a day; Note: Source Status: Taking; Provider: John Torres ( )Paroxetine Hcl 30 mg cjkrvyUlfjah88AJIIUwiydUwsq 2024 11:00pmUnknownFurosemide 40 mg VuffznZoxtdginqzyn40WWXKOewkf at 5501464Frrp 2024 11:00pmDece2024 11:09amMetoprolol Succinate 50 mg Tablet Extended Release 24 LzBvtmbo04NQMSHolst416Vlgt 2024 11:00pmUnknown Potassium Chloride 10 mEq capsule, extended dpemihzTgvyvpumxmjw07YFFBPZyimw497 March 07, 2025 11:00pmDecember 2024 7:33pmOmeprazole 40 MG capsule,delayed release(DR/EC)Xxdbbtucqyox51ALRQRugbnPbekqszn 2016 12:00amcember 2019 1:59pmMetronidazole (Flagyl) 500 mg ZcwsscYdujplilsnos041KQSBChteb times xnslm553Tgrpgjxw 3rd, 2020 12:00amce2019 8:48amMetronidazole 250 mg kovwckPuuvbvpyjakw204QTGVIdzbe times enusl75304Ngdnmhuk2019 12:00am August 29, 2020 2:41pmLevofloxacin 750 mg zuvxwnNecmxfyjaevy697FHWCYnmbb01096 August 21, 2020 12:00amJanuary 2020 2:41pmOmeprazole 40 MG capsule,delayed release(DR/EC)Dnvvagmeibgq24WREYYncbd ewtxx74EzfjcnkyAugust 21, 2020 1:58pmOctober 2020 2:03pmOndansetron Hcl (Zofran) 4 mg TabletDiscontinued4 XSLYL8G637MwdmovogAugust 22, 2020 12:00cember 2019 6:13pmTake 4mg every 4 hours as needed for nauseaAmoxicillin-Pot Clavulanate (Augmentin) 875-125 mg yrhzbnCfcefeuakaov7CBAEMHuaor bgkdf41178Zogseit 2020 12:00amJanuary 2020 12:18pmAcetaminophen (Tylenol) 325 mg SfnrgaDpstljqdjews8800FWYHG3E as needed for PainJanuary 2020 12:00amJanuary 2020 8:18pmAcetaminophen 500 mg CvbhxsRakohzhotppn1022OTVKF2O as needed for PainJanuary 2020 12:00am June 09, 2021 2:00pmClopidogrel 75 mg TbfelbAcmqdjxqtkqd98OLCRJgsxq671949 September 08, 2020 12:00amMay 2022 5:10pmAspirin 81 mg Tablet,Chewable Ziydcowovicn23SYNHJeovl50Eldappx 13th, 2021 12:00amOctober 2020 2:02pm Docusate Sodium (Dok) 100 mg PwcfthrYsiwqprbumxu841HTVKHafiu daily as needed for Pvtejuiticmx1393533Kqyrmlx 13th, 2021 12:00amOctober 2020 1:59pm Amoxicillin-Pot Clavulanate (Augmentin) 875-125 mg kthosbOorkcynrdkrt7BQSDGAevyn izmkb9039MkerjmpSeptember 08, 2020 12:18pmOctcarroll county memorial hospital 2020 2:01pmAdd this 7 day supply to the 14 day supply you already picked up, and finish the whole 21 days of Augmentin.Carvedilol 6.25 mg TabletDiscontinued6.25MGPOTwice daily with meals 214503GznhxqkSeptember 08, 2020 12:00amMa2022 5:10pmAmiodarone 200 mg Tablet Mqtslonieyps178ZIPXAtlvw858850Yxloejc 13th, 2021 12:00amOctober 2020 2:00pmPantoprazole 40 mg Tablet,Delayed Release (Dr/Ec)Iniilj47DQVATfjsnJuocnqq 2020 11:00pmUnknownDocusate Sodium (Stool Softener) 100 mg Capsule Laulcdkskymm380EWQZQjaowMjhmkfy 2020 11:00pmy 2022 5:08esHmf16 (Ubiquinol) 200 mg VavjvrcFpzxvionhmaa436HTOVGzlyqSqcgfph 2020 11:00pmMay 2022 5:10pmLactobacillus Acidophilus (Probiotic Acidophilus) 1.5 mg (250 million cell) CapsuleDiscontinued1.5MGPODailyDetroit Receiving Hospital 2020 11:00pmMa2023 6:13pmAlbuterol Sulfate 90 mcg/actuation Hfa Aerosol InhalerDiscontinued2 PUFFINHALATIONEVERY 4-6 HOURS as needed for Shortness Of Breath Or Wheezing June 08, 2021 11:00pmJanuary 18, 2023 5:10pmLactobacillus Acidophilus (Probacap) 10 billion cell mczkjnfMkupccsybtgl163LWN CELLSPODailyy 2023 11:00pmDecemb2024 11:09amSpironolactone 25 mg CvqgtzSvapsyxzrdix11MVUG Jimpe81464OziJanuary 24, 2024 11:00pmJune 2023 11:11amLoperamide 2 mg Capsule Ritakfoavtvt1ZFBYH7S as needed for Qwqfucic40572Qjb2023 11:00pmJun2023 11:10amPotassium Chloride (Klor-Con M20) 20 mEq Tablet,Er Particles/OobloageFfmdcitpilwe99PFUXSIdzol196Evq 30th, 2024 11:00pmJun2023 11:11amCefdinir 300 mg ucruwhfFqeqlqzepwrd116JHSWLlpax teohw310VzeJanuary 24, 2024 11:00pmJune 2023 11:09amMetronidazole 500 mg mchtanZgkgajwsiucl950IT POThree times apzmx0043Unp2023 11:00pmJun2023 11:10amFurosemide 20 mg ecdhxcHxzuxpnhtlrk58JKHA7 time dailyAugust 03, 2025 12:00amDece2024 11:09amLevalbuterol Hcl 1.25 mg/3 mL solution for nebulizationActive 1.25MGINHALATIONAugust 03, 2025 12:00amUnknownPotassium Chloride 10 mEq tablet,ER particles/vmjeqqduKxbtxvobwjab62VFPKG2 time dailyAugust 03, 2025 12:00amDece2024 11:09amAspirin 81 mg Tablet,Delayed Release (Dr/Ec) Qfhanb35YEBOJcwhf51504Cjhfslbu 10th, 2025 12:00amUnknownDapagliflozin Propanediol 10 mg LftzxvSofndm82LUJYAsswe67233Aajfnduu 10th, 2025 12:00amUnknown Spironolactone 25 mg ZhphltWvpgdy02AJLWBammx81245Bnmelvaa 10th, 2025 12:00am UnknownTelmisartan 20 mg ptpayjCzezpl73XBDARywai927Pzitqmhp 10th, 2025 12:00am UnknownRosuvastatin (Crestor) 40 mg cgmapyMrslzr70UITFLzzut635Iasvsupv 10th, 2025 12:00amUnknownFurosemide 20 mg pnbpalUafiox92UCFPYbrie whrof6668YlkouidrAugust 05, 2025 11:09amUnknownPotassium Chloride 10 mEq tablet,ER particles/crystals Agscrl39LIFHACrimy umqau535626Fcslqckb 10th, 2025 11:09amUnknown Immunizations Immunization Event Date Not Given Reason Dose Number [employer] Lot Number Reason(s) Given Vaccine Information Statement (VIS) Detail Administration Location COVID-19 mRNA-1273 (Moderna) November 05, 2020 COVID-19 mRNA-1273 (Moderna)December 03, 2020 Medical Equipment Device Date Implanted Device Details Drug-eluting coronary artery stent, jab-zlenubgppsneb-wbkohxb-coated September 07, 2020 JEVON: [id number] Issuing Agency: [facility] Device Id: [id number] Lot Number: [id number] hernia surgical mesh, synthetic polymer, non-bioabsorbableNovember 2020UDI: [id number] Issuing Agency: [facility] Device Id: [id number] Expiration Date: 2025-03-23 Lot Number: [id number] hernia surgical mesh, synthetic polymer, non-bioabsorbableMay 2023UDI: ()[id number] Issuing Agency: [facility] Device Id: [id number] Expiration Date: 2028-02-22 Lot Number: [id number] Relevant Diagnostic Tests and/or Laboratory Data Laboratory Results Test Collection Date/Time Result Date/Time Result Interpretation Reference Range Result Comment Performing Site Corrected White Blood Count August 04, 2025 9:36am August 04, 2025 10:15am 5.2 10*3/uL 4.1-10.5FM[facility] [id number] [address] [place] [address] 42294Hazrkcgdbna WBC CountDece2024 9:36amDecember 2024 10:15am5.2 10*3/uL4.1-10.5FMer[facility]tr [id number] [address] [facility] [address]Zod Blood CountDecember 2024 9:36amDecember 2024 10:15am5.46 10*6/uL3.90-5.60[facility] [id number] [address] [facility] 13764EypizxcdumQsbatjzv 2024 9:36amDecember 2024 10:15am 15.4 g/dL13.0-17.0[facility] [id number] [address] [place] [address] 35618TjnikeuhqpLirtwfra 2024 9:36amDecember 2024 10:15am 47.6 %38.8-50.0[facility] [id number] [address] [place] [address] 18797Bmbe Corpuscular VolumeDecember 2024 9:36amDecember 2024 10:15am87.3 fL83.5-101[facility] [id number] [address] [place] [address] 33446Cqep Corpuscular HemoglobinDecember 2024 9:36amDecember 2024 10:15am28.3 pg27.5-35.2FMercy Hospital Ctr [id number] [address] [place] [address] 80463Ropu Corpuscular Hemoglobin ConcentDecember 2024 9:36am August 04, 2025 10:15am32.4 g/dLBelow low pjavru25.5-35.6FMercy Hospital Ctr [id number] [address] [facility] [address]87[address]Kjo Cell Distribution WidthDecember 2024 9:36amDecember 2024 10:15am16.4 %Above high hykbdy38.0-14.8[facility] [id number] [address] [facility] 496[address]Fjznmhtn CountDeceer 2024 9:36amDecember 2024 10:62ds816 10*3/uLBelow low ywxmmm432-389SwtejsxbnSelect Medical Specialty [facility] [id number] [address] [facility] 38989Auca Platelet VolumeDeceer 2024 9:36amDecember 2024 10:15am9.8 fL6.6-10.1FMercy Hospital Ctr [id number] [address] [facility] 28511Bnyuqztijdm (%) (Auto)August 04, 2025 9:36amDecember 2024 10:15am58.7 %.[facility] [id number] [address] [facility] 36516Tfixgtrcvnx (%) (Auto)August 04, 2025 9:36amDecember 2024 10:15am29.0 %.[facility] [id number] [address] [facility] 645[address]Xjanvgksd (%) (Auto)August 04, 2025 9:36amDecember 2024 10:15am9.3 %.[facility] [id number] [address] [facility] 63252Zjomwwshkrc (%) (Auto)August 04, 2025 9:36amDecember 2024 10:15am2.0 %.[facility] [id number] [address] [facility] [facility] 01495Ihitqpubh (%) (Auto)August 04, 2025 9:36amDecember 2024 10:15am1.0 %.[facility] [id number] [address] [facility] 75195Wtjvghtyg RBC Relative Count (auto)August 04, 2025 9:36am August 04, 2025 10:15am0.1 /100{WBC}0-0.5FMercy Hospital Ctr [id number] [address] [facility] 95925Ukywrdvnqcp # (Auto)August 04, 2025 9:36amDe2024 10:15am3.0 10*3/uL1.8-7.7FMercy Hospital Ctr [id number] [address] [place] [id number] # (Auto)August 04, 2025 9:36amDecember 2024 10:15am1.5 10*3/uL1.00-4.8[facility] [id number] [address] [facility] 480[address]Ybzsqksmo # (Auto)August 04, 2025 9:36amDecember 2024 10:15am0.5 10*3/uL0.0-0.8[facility] [id number] [address] [place] [id number] # (Auto)August 04, 2025 9:36amDecember 2024 10:15am0.1 10*3/uL0.0-0.45[facility] [id number] [address] [place], [place] [address]Basophils # (Auto)August 04, 2025 9:36amDecember 2024 10:15am0.1 10*3/uL0.0-0.2FMercy Hospital Ctr [id number] [address] [place] [address] 40874Obufbbm LevelDe2024 9:36amDeceer 2024 11:02ht560 mg/dLAbove high -406BPX recommended reference rangeRandom Glucose Reference Range is dependent on time and content of last meal. Glucose of more than 200 mg/dL in a nonstressed, ambulatory subject supports the diagnosisof Diabetes Mellitus.[facility] [id number] [address] [facility] 44164Kmfqg Urea NitrogenDe2024 9:36amDecemb2024 11:10am30 mg/dLAbove high normal7-25[facility] [id number] [address] [place], [place] [address]CreatinineDece2024 9:36amDe2024 11:10am 1.31 mg/dLAbove high normal0.70-1.30[facility] [id number] [address] [facility] 88338Xroakjasf GFR (CKD-EPI)August 04, 2025 9:36amDecember 2024 11:10am54.009 mL/MinSelect [facility] [id number] [address] [facility] 49642Kpshdv LevelDe2024 9:36amDecember 2024 11:10am 139 mmol/B271-899GovxyqxrxSelect Medical Specialty [facility] [id number] [address] [facility] 92727Apbodglph LevelAugust 04, 2025 9:36amDecember 2024 11:10am4.1 mmol/L3.5-5.1FMercy Hospital Ctr [id number] [address] [facility] 26938Xlhygcah LevelAugust 04, 2025 9:36amDecember 2024 11:10am94 mmol/LBelow low -646LnwtoazmzSelect [facility] [id number] [address] [facility] 15690Clfafu Dioxide LevelAugust 04, 2025 9:36amDecember 2024 11:10am37.3 mmol/LAbove high yjtzlx75.0-31.0[facility] [id number] [address] [facility] 06250Pvprn GapAugust 04, 2025 9:36amDecember 2024 11:10am 11.8 mEq/L6.0-15.0[facility] [id number] [address] [facility] 89565Gskfzlx LevelDe2024 9:36amDecember 2024 11:10am10.9 mg/dLAbove high normal8.6-10.3FMercy Hospital Ctr [id number] [address] [facility] 80276Yefohuii I High SensitivityAugust 04, 2025 9:36amDecember 2024 10:38am29 ng/LAbove high normal0-20The Troponin units of report have been changed to meet the Chest Pain Accreditation requirement, element EC5.M1l2. Troponin units are changed from pg/ml to ng/L. Also, the decimal is removed and results are in whole numbers.[facility] [id number] [address] [facility] 44322C-Ngrh Natriuretic PeptideDecember 2024 9:36amDecember 2024 10:98dg0676.0 pg/mLAbove high normal5-100[facility] [id number] [address] [facility] 83622Xilqdpem Creatinine Clearance (ChemDeceer 2024 9:36am August 04, 2025 11:10am38.44[facility] [id number] [address] [facility] [address] Vital Signs Vital Reading Result Reference Range Collection Date/Time Height 67 [in_i] August 03, 2025 6:49peRnilpk30.90 kgDecember 2024 5:20amBody Yvunaaqnmem11.2 [degF]97.6-99.0ce2024 7:19amHeart Rate75 /wnj73-614 August 05, 2025 11:03amRespiratory rate16 /lgo35-95YguotgsgAugust 05, 2025 11:03amOxygen saturation by Pulse cugxwvtd69 %95-100ce2024 11:03am BP Lxxxcywn966 mm[Hg]100-140Decemb2024 11:03amBP Tejrkpsvo45 mm[Hg] 60-100Decemb2024 11:03am Advance Directives Advance Directive Response Recorded Date/ Time Advance Directives Yes June 29, 2017 10:22am Insurance Providers Guarantor Ismael Andres Address [address] [place] [address] [place] [address]Kevnrjr Info.Home Phone: Coverage Status Update:2025 Payer Group Member ID Coverage Type Subscriber Relationship to Subscriber Effective Date Expiration Date Medicare [id number] Andres Id: [id number] [facility] [place] [address] Home Phone: Email: [email or web address]Self[employer] [facility] [id number] G Longnecker Id: [id number] [place] [address] Home Phone: Email: [email or web address] Encounters Encounter Location(s) Arrival/Admit Date Discharge/Departure Date Discharge/Departure Disposition Provider(s) Departed Clinical -Electrodiag nostics July 31, 2025 10:35am July 31, 2025 10:36am Discharged to home care or self care (routine discharge) Ismael Morales MD Discharged Inpatient -[facility] [place] [facility] [facility] August 03, 2025 5:19pm August 05, 2025 1:11pm Discharged to home care or self care (routine discharge) Trent Temple MD Non-patient / Non-visit -[facility] 2024 2:00pm Georgi Medeiros MD Recent Diagnosis Onset Date Admit Date Atrial fibrillation with RVR Unknown Jul 5:19pm Coronary artery disease Unknown August 03, 2025 5:19pm Dyspnea Unknown August 03 5:19pm HFrEF (heart failure with re duced ejection fraction) Unknown August 03, 2025 5:19pm History of heart artery stent Unknown 2024 5:19pm Noncompliance Unknown August 03 5:19pm Weakness Unknown August 03 5:19pm Functional Status Observation Response Date Recorded Dressing Patient at Baseline July 1:11pm Eating Patient at Baseline July 1:11pm Bathing Patient at Baseline July 1:11pm Disability Status Patient at Baseline July 272024 1:11pm Mental Status Observation Response Date Recorded Cognitive Status Patient at Baseline August 052024 1:11pm Cognitive/Mental Status Assessments Assessments Diagnosis Onset Date Resolution Status Admit Date Atrial fibrillation with RVR resolvedAugust 03, 2025 5:19pmCoronary artery diseaseresolvedDe2024 5:19pmDyspnearesolvedDecember 2024 5:19pmHFrEF (heart failure with reduced ejection fraction)[facility] 5:19pmHistory of heart artery stentresolved[facility] 2024 5:19pmNoncomplianceresolved[facility] 2024 5:[facility]pmWeak[facility]res[facility] 2024 5:19pm Plan of Treatment Future Tests Future scheduled test information is unavailable Pending Tests Pending diagnostic test information is unavailable Future Visits Future appointment information is unavailable Future Procedures Procedure Name Ordered Date Scheduled Date Admit Status Order August 03, 2025 5:41pm Dec emb2024 5:41pm Discharge Order August 05, 2025 11:09am [facility] 2024 11:09am Future Medications Future medication information is unavailable Patient Instructions Instruction Admit Date Heart failure in adults - Jacklyn myers instructions Hope Pamphlet [facility] 5:19pm Goals Acute Goals Author Authored Date Exhibit optimal tissue perfu charles * Exhibits adequate oxygenation and ventilation * Exhibits adequate cardiac output * Regains stable cardiac rhythm * Maintains optimal activity level * Maintains balanced [facility] 1:11pm Preferences Type Detail Treatment Intervention Code Status: Full Code Treatment Intervention Code Status: DNRC CA with Intubation
[2025-08-17] VITALS (16 sets, daily range): BP systolic 116–132; BP diastolic 65–84; PULSE 101–110; TEMP 36.5; O2SAT 83–99; BMI 20.7
--- NOTE | 2025-08-17 20:06 | ECG_ITS ---
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 Measurements Intervals [place] Rate: 107 P: -[id number] MD: -[id number] QRS: 45 QRSD: 156 T: -74 QT: 414 QTc: 476 Interpretive Statements Atrial flutter with variable AV conduction with aberrant conduction, or ventricular premature complexes 2450 Right bundle branch block [address] depression, consistent with subendocardial injury 9150 abnormal ECG Compared to ECG 08/03/2025 13:41:49 Ventricular premature complex(es) now present Left anterior fascicular block no longer present Electronically Signed On 08-19-2025 11:27:45 EST by ALISSA MARR M.D.
--- NOTE | 2025-08-17 20:12 | ED_ITS ---
HPI - SOB/Dyspnea General Chief Complaint: Shortness of Breath/Dyspnea Stated Complaint: Shortness of breath COPD Time Seen by Provider: 08/17/25 20:04 History of Present Illness HPI Narrative: This 85-year-old male with a history of CHF and COPD presents for evaluation of 4 to 5 days of increasing shortness of breath. The patient states that there are family members that have the flu. He typically does not wear oxygen but his pulse ox was in the 80s upon arrival. He is not having any chest pain. He has had chills and sweats. He has increased sputum production. He denies any abdominal pain. He is not having any chest pain. He has no lower extremity pain or swelling. He states he has not had any appetite today. Related Data Home Medications ?Medication ?Instructions ?Recorded ?Confirmed nitroglycerin 0.4 mg sublingual 0.4 mg sublingual Q5M 03/18/24 08/03/25 tablet pantoprazole 40 mg tablet,delayed 40 mg PO DAILY 03/1808/03/25 release (Protonix) paroxetine HCl 30 mg tablet 30 mg PO QAM 02/13/2504/20 albuterol sulfate 90 mcg/actuation 2 puff inhalation Q 4H PRN 08/03/25 08/03/25 aerosol inhaler bronchospasm furosemide 20 mg tablet 20 mg PO DAILY 08/03/2504/20 levalbuterol HCl 1.25 mg/3 mL 1.25 mg inhalation Q6H P RN 08/03/25 08/03/25 solution for nebulization shortness of breath or wheez ing metoprolol succinate 50 mg 50 mg PO DAILY 08/03/2504/20 tablet,extended release 24 hr potassium chloride 10 mEq 10 meq PO DAILY PRN hypokale anthony 08/03/25 08/03/25 tablet,extended release(part/cryst) Allergies Allergy/AdvReac Type Severity Reaction Status Date / Time Iodinated Contrast Media Allergy Intermediate Rash Verified 08/17/25 21:03 Penicillins Allergy Intermediate Rash Verified 08/17/25 21:03 Review of Systems ROS Status of ROS 10 or more systems reviewed and unremark able except as noted in history and below [facility] Medical History (Updated 08/18/25 @ 03:40 by Pam Boswell MD) Heart failure ?I50.9 - Heart failure, unspecified (ICD-10) COPD (chronic obstructive pulmonary disease) ?J44.9 - Chronic obstructive pulmonary disease, unspecified (ICD-10) History of chronic back pain ?Z87.39 - Personal history of other diseases of the musculoskeletal system and connective tissue (ICD-10) History of diverticulosis ?Z87.19 - Personal history of other diseases of the digestive system (ICD-10) History of asthma ?Z87.09 - Personal history of other diseases of the respiratory system (ICD- 10) History of depression ?Z86.59 - Personal history of other mental and behavioral disorders (ICD-10) Surgical History (Updated 03/18/24 @ 17:12 by Brian Hackett) History of hernia repair ?Z98.890 - Other specified postprocedural states (ICD-10) ?Z87.19 - Personal history of other diseases of the digestive system (ICD-10) History of esophagogastroduodenoscopy (EGD) ?Z98.890 - Other specified postprocedural states (ICD-10) History of colonoscopy ?Z98.890 - Other specified postprocedural states (ICD-10) History of abdominal aortic aneurysm (AAA) repair ?Z98.890 - Other specified postprocedural states (ICD-10) Social History Little interest or pleasure in doing things: several days Feeling down, depressed, or hopeless: several days Exam Narrative Exam Narrative: Vital signs and Nursing Notes reviewed: Patient noted to be hypoxic at triage with pulse ox in the 80s-improved to mid 90s on supplemental oxygen General: Awake, alert, oriented, no acute distress, lying comfortably on the stretcher-speaking in complete sentences HEENT: Normocephalic atraumatic, mucous membranes are moist and pink, eyes are clear, normal conjunctiva, vision is grossly intact Neck: Supple, no meningeal signs, no anterior or posterior cervical lymphadenopathy Chest: Inspiratory and expiratory wheezing and scattered rhonchi, no rales appreciated CVS: Irregular rate and rhythm consistent with atrial fibrillation with RVR at 107 bpm no murmurs rubs or gallops, pulses are brisk and equal bilaterally ABD: Soft, nondistended, nontender, no rebound guarding or rigidity, bowel sounds are normal, no pulsatile masses appreciated Extremities: Moving all extremities, no lower extremity tenderness or swelling noted, negative Homans' sign, pulses are brisk and equal bilaterally Skin: Normal in appearance without rash,pallor, petechiae or purpura Neuro: No focal deficits Constitutional Vital Signs, click to edit/add: Last Vital Signs Temp 97.7 F 08/17/25 20:01 Pulse 97 H 08/18/25 00:51 Resp 20 08/18/25 00:51 BP 131/81 08/18/25 00:51 Pulse Ox 95 08/18/25 00:51 O2 Del Method Nasal Cannula 08/17/25 20:41 O2 Flow Rate 2 08/17/25 20:41 Course Vital Signs Vital signs: Vital Signs Temperature 97.7 F 08/17/25 20:01 Pulse Rate 110 H 08/17/25 20:01 Respiratory Rate 22 H 08/17/25 20:01 Blood Pressure 129/77 08/17/25 20:01 Pulse Oximetry 83 L 08/17/25 20:01 Oxygen Delivery Method Room Air 08/17/25 20:01 Temperature 97.7 F 08/17/25 20:01 Pulse Rate 97 H 08/18/25 00:51 Respiratory Rate 20 08/18/25 00:51 Blood Pressure 131/81 08/18/25 00:51 Pulse Oximetry 95 08/18/25 00:51 Oxygen Delivery Method Nasal Cannula 08/17/25 20:41 Oxygen Delivery Flow Rate 2 08/17/25 20:41 MDM - SOB/Dyspnea MDM Narrative Medical decision making narrative: This 85-year-old male with a history of CHF and COPD who does not wear supplemental oxygen presents for evaluation of 4 to 5 days of increasing shortness of breath. He has been exposed to influenza by family members. His pulse ox was noted to be 83% on room air upon arrival. He is diffusely wheezing without rhonchi or rales. His pulse ox was noted to be 83% on room air upon arrival and he was placed on supplemental oxygen with clinical improvement. EKG was A-fib with RVR. His chart shows atrial fibrillation as a working diagnosis he states that he does not always have atrial fibrillation. He is not on any blood thinners and refuses to take any NSAIDs or aspirin. Due to the episodes of hypoxia that is somewhat unexplained a D-dimer was ordered that is elevated at 7.7. Remainder of his labs are reviewed. He has a normal white count and stable hemoglobin. Arterial blood gases 7.3 with a mild elevation in his pCO2 at 58. Electrolytes are normal. Lactic acid is normal. Troponin and delta troponin are both normal. He is negative for influenza and COVID-19. In light of the elevated D-dimer I ordered a CT scan of the chest. The patient does have an allergy to contrast media but was agreeable to being premedicated and having a CT scan of the chest done to rule out pulmonary embolism or other etiologies causing an elevation in his D-dimer.. 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 There is also right lateral distal descending thoracic aortic protrusion or bulge noted measuring 2.7 cm in diameter with moderate volume noncalcified plaque within the aneurysm and ectatic ascending thoracic aorta segment up to 4 cm with no pneumothorax, no mediastinum, no adenopathy and no hematoma. The results of the CT scan were discussed at length with him. I explained to him that he will likely require transfer for further evaluation and treatment of this aortic aneurysm. Flatly refuses transfer. I explained to him that if this aneurysm should rupture it would be sudden . 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 I explained to the patient that if he is unwilling to be transferred I could speak to our hospitalist about admitting him if he verbalized that he did not wish to have any part of this aneurysm repaired or evaluated. The patient states he is already a DNR and this is on record at [facility]. I explained to him I do not have [facility] records available to me at this time. He verbalizes again that he is DNR but refuses admission to this facility or transfer. The patient verbalized to me and the nurse taking care of him that he has had a good life at 85 and wishes to be reunited with his who from cancer 8 years ago. He states he is going to follow-up with pulmonology at [facility] and try to get an oxygen canister to use at home to keep the remainder of his days as comfortable as possible. Several times I offered him transfer for further evaluation and treatment but he is adamant that he will not accept transfer or admission to this facility at this time. He was given a copy of his CT scan to share with his family physician Lab Data Attestation: I reviewed the patient's lab results. Labs: Lab Results 08/17/25 08/17/25 08/17/25 Range/Units 20:26 20:32 20:39 WBC 6.7 (4.0-11.0) 10^3/uL RBC 4.78 (4.70-6.10) 10^6/uL Hgb 13.5 L (14.0-18.0) g/dL Hct 43.9 (42.0-54.0) % MCV 91.8 (80.0-94.0) fL MCH 28.2 (25.9-34.0) pg MCHC 30.8 (29.9-35.2) g/dL RDW 15.8 H (11.0-15.0) % Plt Count 96 L (150-450) 10^3/uL MPV 11.5 (9.5-13.5) fL Neut % (Auto) 81.3 H (43.0-75.0) % Lymph % (Auto) 9.2 L (20.5-60.0) % [place] % (Auto) 7.7 (1.7-12.0) % Eos % (Auto) 0.8 L (0.9-7.0) % Baso % (Auto) 0.5 (0.2-2.0) % Neut # (Auto) 5.4 (1.4-6.5) 10^3/uL Lymph # (Auto) 0.6 L (1.2-3.8) 10^3/uL [place] # (Auto) 0.5 (0.3-0.8) 10^3/uL Eos # (Auto) 0.1 (0.0-0.7) 10^3/uL Baso # (Auto) 0.0 (0.0-0.1) 10^3/uL Abs Immat Gran (auto) 0.03 (0.00-0.03) 10^3/uL Imm/Tot Granulo (auto) 0.5 (0.0-0.5) % D-Dimer 7.79 H* (<=0.59) mg/L FEU Puncture Site R rad ABG pH 7.330 L (7.350-7.450) ABG pCO2 58.4 H* (35.0-45.0) mmHg ABG pO2 77.9 L (80.0-100.0) mmHg ABG HCO3 30.7 H (22.0-26.0) mmol/L ABG O2 Saturation 95.3 % ABG Base Excess 4.8 H (-2.0-2.0) mmol/L Chidi Test Positive (POSITIVE) O2 Liters/Min 2 Sodium 138 (136-145) mmol/L Potassium 4.1 (3.5-5.1) mmol/L Chloride 100 (98-107) mmol/L Carbon Dioxide 32.1 H (21.0-32.0) mmol/L Anion Gap 10.0 BUN 23.0 H (7.0-18.0) mg/dL Creatinine 1.13 (0.70-1.30) mg/dL Est GFR ( Amer) >60 (>=60 mL/min/1.73m^2) Est GFR (Non-Af Amer) >60 (>=60 mL/min/1.73m^2) BUN/Creatinine Ratio 20.4 Glucose 115 H (74-106) mg/dL Lactate 1.1 (0.4-2.0) mmol/L Calcium 9.3 (8.5-10.1) mg/dL Total Bilirubin 0.9 (0.2-1.0) mg/dL AST 22 (15-37) U/L ALT 13 L (16-63) U/L Alkaline Phosphatase 99 (46-116) U/L Troponin I High Sens 42.5 (4.0-76.1) pg/mL NT-Pro-B Natriuret Pep 49376.0 H* (<=1800.0) pg/mL Total Protein 7.6 (6.4-8.2) g/dL Albumin 3.7 (3.4-5.0) g/dL Globulin 3.9 g/dL Albumin/Globulin Ratio 0.9 Influenza Type A Ag Negative Influenza Type B Ag Negative SARS-CoV-2 Ag (CV2AG) Negative (NEGATIVE) 08/18/25 Range/Units 01:50 WBC (4.0-11.0) 10^3/uL RBC (4.70-6.10) 10^6/uL Hgb (14.0-18.0) g/dL Hct (42.0-54.0) % MCV (80.0-94.0) fL MCH (25.9-34.0) pg MCHC (29.9-35.2) g/dL RDW (11.0-15.0) % Plt Count (150-450) 10^3/uL MPV (9.5-13.5) fL Neut % (Auto) (43.0-75.0) % Lymph % (Auto) (20.5-60.0) % [place] % (Auto) (1.7-12.0) % Eos % (Auto) (0.9-7.0) % Baso % (Auto) (0.2-2.0) % Neut # (Auto) (1.4-6.5) 10^3/uL Lymph # (Auto) (1.2-3.8) 10^3/uL [place] # (Auto) (0.3-0.8) 10^3/uL Eos # (Auto) (0.0-0.7) 10^3/uL Baso # (Auto) (0.0-0.1) 10^3/uL Abs Immat Gran (auto) (0.00-0.03) 10^3/uL Imm/Tot Granulo (auto) (0.0-0.5) % D-Dimer (<=0.59) mg/L FEU Puncture Site ABG pH (7.350-7.450) ABG pCO2 (35.0-45.0) mmHg ABG pO2 (80.0-100.0) mmHg ABG HCO3 (22.0-26.0) mmol/L ABG O2 Saturation % ABG Base Excess (-2.0-2.0) mmol/L Chidi Test (POSITIVE) O2 Liters/Min Sodium (136-145) mmol/L Potassium (3.5-5.1) mmol/L Chloride (98-107) mmol/L Carbon Dioxide (21.0-32.0) mmol/L Anion Gap BUN (7.0-18.0) mg/dL Creatinine (0.70-1.30) mg/dL Est GFR ( Amer) (>=60 mL/min/1.73m^2) Est GFR (Non-Af Amer) (>=60 mL/min/1.73m^2) BUN/Creatinine Ratio Glucose (74-106) mg/dL Lactate (0.4-2.0) mmol/L Calcium (8.5-10.1) mg/dL Total Bilirubin (0.2-1.0) mg/dL AST (15-37) U/L ALT (16-63) U/L Alkaline Phosphatase (46-116) U/L Troponin I High Sens 46.2 (4.0-76.1) pg/mL NT-Pro-B Natriuret Pep (<=1800.0) pg/mL Total Protein (6.4-8.2) g/dL Albumin (3.4-5.0) g/dL Globulin g/dL Albumin/Globulin Ratio Influenza Type A Ag Influenza Type B Ag SARS-CoV-2 Ag (CV2AG) (NEGATIVE) Imaging Data Chest x-ray: Radiologist's impression: ITS Impressions Chest X-Ray 08/17/25 20:57 IMPRESSION: Clearing of right basilar pleural-parenchymal changes. Hyperinflation. No new findings. Impression dictated by: Zoltan Kumar M.D. 08/17/2025 10:05 PM Dictation Location: 10X10 [facility] Electronically authenticated by: [id number] Y Date: 08/17/2025 22:05 ECG Data Attestation: I personally reviewed and interpreted this ECG as follows: (A-fib with RVR at 107 bpm, nonspecific ST changes, right bundle branch block, no acute ST segment elevation) Critical Care Time Critical Care Time Total Critical Care Time: 35 Attestation: Due to this patient's presentation with history of COPD and CHF with hypoxia upon arrival in the high probability of sudden and clinically significant deterioration in his condition he required the highest level of my preparedness to intervene urgently. I provided critical care time including documentation time medication orders and management reevaluation vital sign assessment ordering and reviewing of lab test ordering reviewing of radiographic studies and extensive consultation with the patient regarding his findings. Agro critical care time was 35 minutes including only time during which I was engaged in work directly related to his care and include time spent treating other patients simultaneously. Discharge Plan Discharge Stand Alone Forms: Portal Instructions Chief Complaint: Shortness of Breath/Dyspnea Clinical Impression: Breath shortness, Congestive heart failure, Aneurysm of descending thoracic aorta without rupture, A-fib Patient Disposition: Left Against Medical Advice Time of Disposition Decision: 03:23 Condition: Fair Prescriptions / Home Meds: No Action nitroglycerin 0.4 mg tablet, sublingual 0.4 mg sublingual Q5M Rx Instructions: do not exceed 3 doses per episode pantoprazole [Protonix] 40 mg tablet,delayed release (DR/EC) 40 mg PO DAILY paroxetine HCl 30 mg tablet 30 mg PO QAM albuterol sulfate 90 mcg/actuation HFA aerosol inhaler 2 puff INHALATION Q4H PRN (Reason: bronchospasm) furosemide 20 mg tablet 20 mg PO DAILY metoprolol succinate 50 mg tablet extended release 24 hr 50 mg PO DAILY potassium chloride 10 mEq tablet,ER particles/crystals 10 meq PO DAILY PRN (Reason: hypokalemia) Rx Instructions: TAKE IF LASIX IS TAKEN levalbuterol HCl 1.25 mg/3 mL solution for nebulization 1.25 mg INHALATION Q6H PRN (Reason: shortness of breath or wheezing) Print Language: Cymro Instructions: Heart Failure (ED), Thoracic Aortic Aneurysm (DC), Descending Thoracic Aortic Aneurysm (DC) Referrals: SUGAR HARRISON [Primary Care Provider, Internal Medicine] - 1 week
[2025-08-17 20:41] LABS: Hematocrit 43.9 % (42.0-54.0); Hemoglobin 13.5 g/dL (14.0-18.0); Immature Granulocytes Abs Auto 0.03 10^3/uL (0.00-0.03); Immature Granulocytes Pct Auto 0.5 % (0.0-0.5); Lymphocytes Absolute Auto 0.6 10^3/uL (1.2-3.8); Mean Corpuscular HGB Conc 30.8 g/dL (29.9-35.2); Mean Corpuscular Hemoglobin 28.2 pg (25.9-34.0); Mean Corpuscular Volume 91.8 fL (80.0-94.0); Platelet Count 96 10^3/uL (150-450); Red Blood Count 4.78 10^6/uL (4.70-6.10); White Blood Count 6.7 10^3/uL (4.0-11.0)
[2025-08-17] MEDS: IPRATROPIUM/ALBUTEROL SULFATE 3 ML AMPUL.NEB IH (20:41)
[2025-08-17 20:56] LABS: HCO3 ABG 30.7 mmol/L (22.0-26.0); PO2 ABG 77.9 mmHg (80.0-100.0)
[2025-08-17 20:56] LABS: SARS-CoV-2 Ag NEGATIVE (NEGATIVE)
[2025-08-17 20:57] LABS: Allen Test POSITIVE (POSITIVE); Liters per Minute 2; O2 Mode NASAL CANNULA; Oxygen Saturation ABG 95.3 %; Puncture Site R RAD
--- NOTE | 2025-08-17 20:57 | XR_ITS ---
The [address] [address] Patient Name: SUGAR ACUÑA MRN: [id number] date: 1940 Sex: M Assigned Patient Location: ED.MAIN Current Patient Location: ER Accession/Order Number: [id number] Exam Date: 08/17/2025 21:08 Report Date: 08/17/2025 22:05 At the request of: CAROLYN ALONZO MD Procedure: XR chest 1V Plain film chest Single view HISTORY: Shortness of breath COMPARISON: 08/03/2025 FINDINGS: SUPPORT DEVICES: None POSTSURGICAL CHANGES: None HEART: Within normal limits PULMONARY BIRGIT: Within normal limits MEDIASTINUM: Unremarkable LUNGS AND PLEURA: No acute lung process, pleural effusion or pneumothorax identified. Thickening of the minor fissure, decreased. Decreased nodularity. Bibasilar pleural-parenchymal changes resolved. BONY STRUCTURES: Intact ADDITIONAL FINDINGS None XR/XR chest 1V IMPRESSION: Clearing of right basilar pleural-parenchymal changes. Hyperinflation. No new findings. Impression dictated by: Zoltan Kumar M.D. 08/17/2025 10:05 PM Dictation Location: [facility] Electronically authenticated by: [id number] Y Date: 08/17/2025 22:05
[2025-08-17 20:58] LABS: ABG PCO2 58.4 mmHg (35.0-45.0)
[2025-08-17 21:00] LABS: Lactate/Lactic Acid 1.1 mmol/L (0.4-2.0)
--- OUTSIDE RECORDS SUMMARY | 2025-08-17 21:00 | XMS_ITS | Patient Health Record ---
Author Organization [facility] Address [facility] [place] [address] Care Team Providers Care Sky Diver Name Role Phone Ismael Morales MD Primary Care Provider UnavailHarish Byrne Unavailable [phone] Allergies Allergen (clinical drug ingredient) Drug/Non Drug Allergy documented on EMR Reaction Allergy Type Onset Date Status Dye DETENTION Blue 1UnknownDrug AllergyActivePenicillinUnknownDrug AllergyActive Reason For Referral No Information Medications Medication SIG (Take, Route, Frequency, Duration) Notes Start Date End Date Status Probiotic - Tablet Delayed Release as directed O rally ActivePotassium 99 MG Tablet1 tablet Orally Once a jwgQvpofqVdM14 200 MG Capsule as directed OrallyActiveLasix 40 MG Tablet1 tablet Orally Once a dayActivePaxil 30 MG Tablet1 tablet in the morning Orally Once a dayActiveCarvedilol 6.25 MG Tablet1 tablet with food Orally Twice a dayActivePantoprazole Sodium 40 MG Tablet Delayed Release1 tablet Orally Once a day; Duration: 30 day(s)Active Vitamin D3 50 MCG (2000 UT) Capsule1 capsule Orally Once a day; Duration: 30 day(s)Active Immunizations Vaccine Route Administration Date Status Comme nts Influenza Unknown 05/02/2021 Administered Social History Tobacco Use: Social History Observation Description Date Details (start date - stop date) Current Smoker NA - NA Social History Social HistorySocial InfoQuestionAnswerNotesmarital statusmarital statuswidower tobacco usePatient is a:current smoker3/4 pack a day Problems Problem Type SNOMED Code ICD Code Onset Dates Problem Status W/U Status Risk Notes Problem Essential hypertension (05751978 ) Essential (primary) hypertension (I10) ActiveconfirmedProblemRight foot drop (932282574152048)Foot drop, right foot (M21.371)ActiveconfirmedProblemPain in limb (08809362)Pain in right toe(s) (M79.674)ActiveconfirmedProblemPain in limb (99470404)Pain in left toe(s) (M79.675)ActiveconfirmedProblemTinea unguium (257576140)Tinea unguium (B35.1) Activeconfirmed Vital Signs Blood pressure diastolic 94 mm Hg 07/06/2025 Mwupqi54 in07/06/2025lood pressure dqsobzkw001 mm Hg07/06/20252382Dtgkjd196.8 lbs 07/06/2025BMI21.8607/06/2025 Encounters Encounter Location Date Provider [facility] [place] [address] 09/29/2024 Harish Lesnak Pain in left toe(s) M79.675 ; Pain in right toe(s) M79.674 and Tinea unguium B35.[address] [facility] [address] [place] [address] 12/29/2024 Harish Lesnak Pain in left toe(s) M79.675 ; Pain in right toe(s) M79.674 and Tinea unguium B35.[address] [facility] [address] [place] [address] 03/30/2025 Harish Lesnak Pain in left toe(s) M79.675 ; Pain in right toe(s) M79.674 and Tinea unguium B35.1 [facility] [address] [place] [address] 07/06/2025 Harish Lesnak Pain in left toe(s) M79.675 ; Pain in right toe(s) M79.674 ; Tinea unguium B35.1 and Foot drop, right foot M21.371 Assessments Encounter Date Diagnosis (ICD Code) Assessment Notes Treatment Notes Treatment Clinical Notes Section Notes 09/29/2024 Pain in left toe(s) (ICD-10 - M7 9.675) 12/29/2024Pain in left toe(s) (ICD-10 - M79.675)03/30/2025Pain in left toe(s) (ICD-10 - M79.675)07/06/2025Pain in left toe(s) (ICD-10 - M79.675)07/06/2025 Tinea unguium (ICD-10 - B35.1)07/06/2025Pain in right toe(s) (ICD-10 - M79.674) 12/29/2024Pain in right toe(s) (ICD-10 - M79.674)03/30/2025Pain in right toe(s) (ICD-10 - M79.674)09/29/2024Pain in right toe(s) (ICD-10 - M79.674)03/30/2025 Tinea unguium (ICD-10 - B35.1)07/06/2025Foot drop, right foot (ICD-10 - M21.371) 12/29/2024Tinea unguium (ICD-10 - B35.1)09/29/2024Tinea unguium (ICD-10 - B35.1) Plan Of Treatment Next Appt Details Provider Name:Harish keene, 10/05/2025 03:30:00 PM, [address] [place] [address] Dr [address], [place], [address], Insurance Providers Payer Name Payer Address Payer Phone Subscriber Number Group Number Insured Name Patient Relationship to Insured Coverage Start Date Coverage End Date [employer] [address] [place] [phone] [id number] Hermanelf - patient is the insured Medical (General) History Medical History History ICD Code CHF COPDstomach ulcerhigh blood pressurerheumatoid arthritisGERDhiatal hernia fibromyalgiaNeuropathyCKD stage 3pulmonary edemaSurgical History Surgery Date(Month/Year) hernia 05/2021 Abdominal Aortic Aneurysm bowel cctugoh08/24Hospitalization History Reason Date(Month/Year) SOB 02/2025 see sx hx [id number]
--- OUTSIDE RECORDS SUMMARY | 2025-08-17 21:00 | XMS_ITS | Encounter Summary ---
Author Organization [facility] Address [address] [facility] [place] [address] Care Team Providers Care Retail Key Holder Name Role Phone Ismael Morales MD Unavailable [phone] Ismael Morales MD Primary Care Provider [phone] Saúl Wiggins MD Unavailable [phone] Harish Floyd MD Unavailable [phone] Jelly Stokes LPN Unavailable Reason for Visit * ReasonCommentsMed Refill Encounter Details DateTypeDepartmentCare Team (Latest Contact Info)Ipvfjvelkma46/17/2025Refill [facility] [address] [place] [address] Ismael Morales MD [address] [place] [address] Chronic obstructive pulmonary disease, unspecified COPD type (HCC) Social History Tobacco UseTypesPacks/DayYears UsedDateSmoking Tobacco: Every DayCigarettes Started: 1975 Comments:5-7 cigarettes a da y Alcohol UseStandard Drinks/WeekCommentsNot Currently0 (1 standard drink = 0.6 oz pure alcohol)caffeine; 6 cups of coffee per dayPHQ-2AnswerDate RecordedPatient Health Questionnaire-2 Fewoi630Sex and Gender InformationValueDate RecordedSex Assigned at BirthNot on fileLegal AfvPijb7411/08/2022 6:34 PM EDT Gender IdentityNot on fileSexual OrientationNot on fileOccupationIndustryJob Start DateJob 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, engineerNot on fileNot on fileNot on file documented as of this encounter Plan of Treatment DateTypeDepartmentCare Team (Latest Contact Info)Gfisdojwvbm76/23/2026 4:00 PM ESTOffice Visit [facility] [place] [facility] [address] [place] [address] documented as of this encounter Visit Diagnoses Diagnosis Chronic obstructive pulmonary disease, unspecified COPD type (HCC) documented in this encounter Care Teams Team MemberRelationshipSpecialtyStart DateEnd Date Ismael Morales MD [address] [place] [address] PCP - Devoted08/27/20 Ismael Morales MD [address] [place] [address] PCP - GeneralInternal Medicine01/18/23 Saúl Wiggins MD [address] [facility] [address] [place] [address] Referring PhysicianCardiology09/24/24 Harish Floyd MD [facility] [place] [address] Referring PhysicianPodiatr09/24/24 Jelly Stokes LPN [address] [place] [address] Licensed Practical NurseFamily Medicine09/24/24 Sofía Bedolla OD Ophthalmology09/12/23documented as of this encounter
--- OUTSIDE RECORDS SUMMARY | 2025-08-17 21:00 | XMS_ITS | Encounter Summary ---
Author Organization [facility] Address [address] [facility] [place] [address] Care Team Providers Care Road Inspector Name Role Phone Ismael Morales MD Unavailable [phone] Ismael Morales MD Primary Care Provider [phone] Saúl Wiggins MD Unavailable [phone] Harish Floyd MD Unavailable [phone] Jelly Stokes LPN Unavailable [phone] Encounter Details DateTypeDepartmentCare Team (Latest Contact Info)Dbogecwdclw72/12/2025Orders Only [facility] [address] [facility] [address] [place] [address] Unallocated, [facility] Provider, [address] [place] [address] Social History Tobacco UseTypesPacks/DayYears UsedDateSmoking Tobacco: Every DayCigarettes Started: 1975 Comments:5-7 cigarettes a da y Alcohol UseStandard Drinks/WeekCommentsNot Currently0 (1 standard drink = 0.6 oz pure alcohol)caffeine; 6 cups of coffee per dayPHQ-2AnswerDate RecordedPatient Health Questionnaire-2 Iuuww961Sex and Gender InformationValueDate RecordedSex Assigned at BirthNot on fileLegal FnqPxqy8711/08/2022 6:34 PM EDT Gender IdentityNot on fileSexual OrientationNot on fileOccupationIndustryJob Start DateJob 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, engineerNot on fileNot on fileNot on file documented as of this encounter Plan of Treatment DateTypeDepartmentCare Team (Latest Contact Info)Khlstsqigit89/23/2026 4:00 PM ESTOffice Visit [facility] [place] [facility] [address] [place] [address] documented as of this encounter Procedures Procedure NamePriorityDate/TimeAssociated DiagnosisCommentsTROPONIN T, HIGH IXIJZXPFXSVNnfnfor97/09/2025 1:59 PM ESTCBC WITH AUTO DIFFERENTIALRoutine 08/04/2025 1:59 PM ESTB-TYPE NATRIURETIC GMMRZUSIwelpih85/09/2025 1:59 PM EST BASIC METABOLIC KITAFQtitnok16/09/2025 1:59 PM ESTTROPONIN T, HIGH SENSITIVITY Movjprr8908/03/2025 1:58 PM ESTCBC WITH AUTO PPILYYIMEEVRCgehhvx12/08/2025 1:58 PM ESTPROTHROMBIN TIME-LXGQocrsam49/08/2025 1:58 PM ESTB-TYPE NATRIURETIC PEPTIDE Incmaaa2508/03/2025 1:58 PM SUMVZEZLPLAWLmogwou01/08/2025 1:58 PM ESTCOMPREHENSIVE METABOLIC DEJJVLqnhuiz85/08/2025 1:58 PM ESTdocumented in this encounter Results * CBC auto differential (08/04/2025 1:59 PM EST)Specimen (Source)Anatomical Location / LateralityCollection Method / VolumeCollection TimeReceived Time BloodVenous blood specimen / Unknown Narrative Authorizing ProviderResult TypeResult StatusAndrei OpDavis Regional Medical CenterLAB BLOOD ORDERABLES Final Result * Basic metabolic panel (08/04/2025 1:59 PM EST)Specimen (Source)Anatomical Location / LateralityCollection Method / VolumeCollection TimeReceived Time BloodVenous blood specimen / Unknown Narrative Authorizing ProviderResult TypeResult StatusAndrei Opcu MDLAB BLOOD ORDERABLES Final Result * B-type natriuretic peptide (08/04/2025 1:59 PM EST)Specimen (Source)Anatomical Location / LateralityCollection Method / VolumeCollection TimeReceived Time BloodVenous blood specimen / Unknown Narrative Authorizing ProviderResult TypeResult StatusAndrei Opescu MDLAB BLOOD ORDERABLES Final Result * TROPONIN T, HIGH SENSITIVITY (08/04/2025 1:59 PM EST) Narrative Authorizing ProviderResult TypeResult StatusAndrei Opescu MDLAB BLOOD ORDERABLES Final Result * B-type natriuretic peptide (08/03/2025 1:58 PM EST)Specimen (Source)Anatomical Location / LateralityCollection Method / VolumeCollection TimeReceived Time BloodVenous blood specimen / Unknown Narrative Authorizing ProviderResult TypeResult StatusNoms Provider Unallocated MDLAB BLOOD ORDERABLESFinal Result * Protime-INR (08/03/2025 1:58 PM EST)Specimen (Source)Anatomical Location / LateralityCollection Method / VolumeCollection TimeReceived TimeBloodVenous blood specimen / Unknown Narrative Authorizing ProviderResult TypeResult StatusNoms Provider Unallocated MDLAB BLOOD ORDERABLESFinal Result * Comprehensive metabolic panel (08/03/2025 1:58 PM EST)Specimen (Source) Anatomical Location / LateralityCollection Method / VolumeCollection Time Received TimeBloodVenous blood specimen / Unknown Narrative Authorizing ProviderResult TypeResult StatusNoms Provider Unallocated MDLAB BLOOD ORDERABLESFinal Result * Magnesium (08/03/2025 1:58 PM EST)Specimen (Source)Anatomical Location / LateralityCollection Method / VolumeCollection TimeReceived TimeBloodVenous blood specimen / Unknown Narrative Authorizing ProviderResult TypeResult StatusNoms Provider Unallocated MDLAB BLOOD ORDERABLESFinal Result * TROPONIN T, HIGH SENSITIVITY (08/03/2025 1:58 PM EST) Narrative Authorizing ProviderResult TypeResult StatusNoms Provider Unallocated MDLAB BLOOD ORDERABLESFinal Result * CBC auto differential (08/03/2025 1:58 PM EST)Specimen (Source)Anatomical Location / LateralityCollection Method / VolumeCollection TimeReceived Time BloodVenous blood specimen / Unknown Narrative Authorizing ProviderResult TypeResult StatusNoms Provider Unallocated MDLAB BLOOD ORDERABLESFinal Result documented in this encounter Visit Diagnoses Not on filedocumented in this encounter Care Teams Team MemberRelationshipSpecialtyStart DateEnd Ismael Morales MD [address] [place] [address] PCP - Devoted08/27/20 Ismael Morales MD [address] [place] [address] PCP - GeneralInternal Medicine01/18/23 Saúl Wiggins MD [address] [facility] [address] [place] [address] Referring PhysicianCardiology09/24/24 Harish Floyd MD [facility] [place] [address] Referring PhysicianPodiatr09/24/24 Jelly Stokes LPN [address] [place] [address] Licensed Practical NurseFamily Medicine09/24/24 Sofía Bedolla OD Ophthalmology09/12/23documented as of this encounter
--- OUTSIDE RECORDS SUMMARY | 2025-08-17 21:00 | XMS_ITS ---
Author Organization [facility] Address [address] [facility] [place] [address] Care Team Providers Care Watershed Coordinator Name Role Phone Ismael Morales MD Unavailable [phone] Ismael Morales MD Primary Care Provider [phone] Saúl Wiggins MD Unavailable [phone] Harish Floyd MD Unavailable [phone] Jelly Stokes LPN Unavailable [phone] Inpatient Discharge Transitional Care Management (TCM) Status:Closed (Closed) Start date:08/05/2025 Enrollment date:08/07/2025 Enrollment reason:Identified using discharge data End date:08/07/2025 Close reason:Actively enrolled in CCM Overview Patient discharged from [facility] on 08/[facility]. Please contact for hospital TOCand schedule follow-up appointment within 7-14 days. <August 07, 2025, 12:23 - Crystal Perez MA> Pt seen in office for HFU. No JORJE needed at this time. Continued Care and Services Coordination
--- OUTSIDE RECORDS SUMMARY | 2025-08-17 21:00 | XMS_ITS | Clinical Summary ---
Author Organization [facility] Address [address] [place] [address] Care Team Providers Care Senior Supply Chain Analyst Name Role Phone Ismael Morales MD Primary Care Provider [phone] Allergies Active AllergyReactionsCriticalityNoted DateCommentsContrast DyeSwellingHigh 11/27/20111168CwckrwwmfrfRdlptfve44/02/2012 Medications MedicationSigDispense QuantityRefillsLast FilledStart DateEnd DateStatus citalopram (CELEXA) 20 mg ORAL tablet Take 1 tablet by mouth once daily.ctive Omeprazole 40 mg capsule Take 40 mg by mouth once daily.Active Active Problems ProblemNoted DateDiagnosed DateIron deficiency ivbbcd1407/11/2016MGUS (monoclonal gammopathy of unknown significance)12/31/2015PUD (peptic ulcer disease) 12/31/20156614Ueihhldovb73/06/2016Lumbosacral spondylosis without myelopathy 01/03/20129255Werluoz30/09/2012 Family History Medical HistoryRelationCommentsHeartFatherHypertensionFatherlung cancer [Other] FatherdeceasedCancerMotherHyperlipidemiaMotherdeceasedRelationStatusComments FatherMother Social History Tobacco UseTypesPacks/DayYears UsedDateSmoking Tobacco: Some DaysCigarettes Alcohol UseStandard Drinks/WeekCommentsNo0 (1 standard drink = 0.6 oz pure alcohol)Sex and Gender InformationValueDate RecordedSex Assigned at BirthNot on fileLegal EzxUwql87/02/2012 8:08 AM ESTGender IdentityNot on fileSexual OrientationNot on fileOccupationIndustryJob Start DateJob 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 DatesupervisorNot on fileNot on fileNot on file Last Filed Vital Signs Vital SignReadingTime TakenCommentsBlood Frjxvnur847/9101/17/2017 4:30 PM EDT Kwirf027901/17/2017 4:30 PM MJQTbvufqaftiu98.6 ??C (97.8 ??F)01/17/2017 4:30 PM EDTRespiratory Buby276701/17/2017 4:30 PM EDTOxygen Xvqnwruovr07%01/09/2017 2:59 PM EDTInhaled Oxygen Concentration--Tdfler83.1 kg (170 lb)01/09/2017 2:59 PM EDT Gacljf422.1 cm (5' 7.76 )01/09/2017 2:59 PM EDTBody Mass Index26.03001/09/2017 2:59 PM EDT Plan of Treatment Health MaintenanceDue DateLast DoneCommentsAnxiety Fcladtiub27/28/1960Depression Mgggppgmm08/28/1960DTaP,Tdap,Td Vaccine (1 - Tdap)1Pneumococcal Vaccine: 50+ (1 of 1 - PCV)02/22/1992Shingrix Vaccine (1 of 2)02/22/1992RSV Vaccine (1 - 1-dose 75+ series)2017Diabetes Otlnixjjv29 Advance Directive Ywyotofcxf68/01/2025Covid-19 Vaccine (1 - season) 2025Influenza Vaccine (#1)2025 Procedures Procedure NamePriorityDate/TimeAssociated DiagnosisCommentsCOMPREHENSIVE METABOLIC SGCDZYmvxyay69/06/2016 3:03 PM EDT MGUS (monoclonal gammopathy of unknown significance) from Last 3 Months or Most Recently Relevant to Health Maintenance Results * COMP METABOLIC PANEL (12/31/2015 3:03 PM EDT)ComponentValueRef RangeTest MethodAnalysis TimePerformed AtPathologist SignatureProtein, Total7.26.0 - 8.4 g/dL01/01/2016 2:58 [facility]ORYAlbumin4.23.5 - 5.0 g/dL01/01/2016 2:58 AM [facility] LAB[facility]ORYCalcium9.38.5 - 10.5 mg/dL01/01/2016 2:58 AM [facility] LABORATORYBilirubin, Total0.20.0 - 1.5 mg/dL01/01/2016 2:58 AM [facility] Alkaline Bycbkhcwghu2872 - 150 U/L01/01/2016 2:58 AM [facility] WOWFXKNETXNJF382 - 40 U/L01/01/2016 2:58 AM [facility] EPRJUPVPZPFynxwek9181 - 100 mg/dL01/01/2016 2:58 AM [facility] JSOZJZSJHBYGG8241 - 25 mg/dL01/01/2016 2:58 AM [facility] LABORATORYCreatinine1.190.70 - 1.40 mg/dL01/01/2016 2:58 AM [facility] UWICDBUMTAZotxlr939201 - 146 mmol/L01/01/2016 2:58 AM [facility] LABORATORYPotassium4.73.5 - 5.0 mmol/L01/01/2016 2:58 AM T [facility] KMPJCELQWEAzipyjmj0200 - 110 mmol/L01/01/2016 2:58 AM [facility] EASBQHMZTGDH87593 - 32 mmol/L01/01/2016 2:58 AM [facility] LABORATORYAnion Ckr739 - 15 mmol/L01/01/2016 2:58 AM [facility] ZDJOPDDKGYJZL359 - 50 U/L01/01/2016 2:58 AM [facility] LABORATORYeGFR->6005 2:58 AM [facility] LABORATORYeGFR-All Other Races60.01/01/2016 2:58 AM [facility] LABORATORYComment: eGFR (Estimated GFR) Units of measure: mL/min/1.73 [...] eGFR may not accurately reflect actual GFR. Specimen (Source)Anatomical Location / LateralityCollection Method / Volume Collection TimeReceived TimeBlood specimen (specimen)BLOOD SPECIMEN / Unknown 12/31/2015 3:03 PM EDT12/31/2015 3:05 PM EDT Narrative Authorizing ProviderResult TypeResult StatusMicheal Blount MDLABORATORY Final ResultPerforming OrganizationAddressCity/State/ZIP CodePhone Number [facility] [address] [place] [address] from Last 3 Months or Most Recently Relevant to Health Maintenance Insurance Care Teams Team MemberRelationshipSpecialtyStart DateEnd Ismael Hernandez MD [address] [address] PCP - GeneralInternal Medicine10/09/11
--- OUTSIDE RECORDS SUMMARY | 2025-08-17 21:00 | XMS_ITS | Encounter Summary ---
Author Organization [facility] Address [address] [place] [address] Care Team Providers Care Ceramics Machine Operator Name Role Phone Ismael Morales MD Unavailable [phone] Ismael Morales MD Primary Care Provider [phone] Saúl Wiggins MD Unavailable [phone] Harish Floyd MD Unavailable [phone] Jelly Stokes LPN Unavailable [phone] Encounter Details DateTypeDepartmentCare Team (Latest Contact Info)Vgaohyrkkbh79/12/2025Travel Social History Tobacco UseTypesPacks/DayYears UsedDateSmoking Tobacco: Every DayCigarettes Started: 1975 Comments:5-7 cigarettes a da y Alcohol UseStandard Drinks/WeekCommentsNot Currently0 (1 standard drink = 0.6 oz pure alcohol)caffeine; 6 cups of coffee per dayPHQ-2AnswerDate RecordedPatient Health Questionnaire-2 Wqglh734Sex and Gender InformationValueDate RecordedSex Assigned at BirthNot on fileLegal ZrqPsti8711/08/2022 6:34 PM EDT Gender IdentityNot on fileSexual OrientationNot on fileOccupationIndustryJob Start DateJob 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, engineerNot on fileNot on fileNot on file documented as of this encounter Plan of Treatment DateTypeDepartmentCare Team (Latest Contact Info)Ghljxxjaebd38/23/2026 4:00 PM ESTOffice Visit [facility] [place] [facility] [address] [facility] [address] [place] [address] documented as of this encounter Visit Diagnoses Not on filedocumented in this encounter Care Teams Team MemberRelationshipSpecialtyStart DateEnd Date Ismael Morales MD [address] [place] [address] PCP - Devoted08/27/20 Ismael Morales MD [address] [place] [address] PCP - GeneralInternal Medicine01/18/23 Saúl Wiggins MD [address] [facility] [address] [place] [address] Referring PhysicianCardiology09/24/24 Harish Floyd MD [facility] [place] [address] Referring PhysicianPodiatr09/24/24 Jelly Stokes LPN [address] [place] [address] Licensed Practical NurseFamily Medicine09/24/24 Sofía Bedolla OD Ophthalmology09/12/23documented as of this encounter
--- OUTSIDE RECORDS SUMMARY | 2025-08-17 21:00 | XMS_ITS | Encounter Summary ---
Author Organization [facility] Address [address] [place] [address] Care Team Providers Care Child Care Supervisor Name Role Phone Ismael Morales MD Unavailable [phone] Ismael Morales MD Primary Care Provider [phone] Saúl Wiggins MD Unavailable [phone] Harish Floyd MD Unavailable [phone] Jelly Stokes LPN Unavailable [phone] Reason for Referral * Consultation (Routine) - Pending ReviewSpecialtyDiagnoses / ProceduresReferred By ContactReferred To ContactPulmonary Disease Diagnoses Chronic obstructive pulmonary disease, unspecified COPD type (HCC) Solitary pulmonary nodule Procedures SD OFFICE/OUTPATIENT [facility] 60 MINUTES Ismael Morales MD [address] [facility] [address] [place] [address] Phone: tel: fax: Georgi Medeiros MD [address] [address] Phone: tel: fax: Referral IDStatusReasonStart DateExpiration DateVisits RequestedVisits [id number] Review Specialty Services Required / Encounter Details DateTypeDepartmentCare Team (Latest Contact Info)Vkdfxiplbhq67/22/2025Patient Outreach [facility] [address] [place] [phone] Jelly Stokes LPN [address] [place] [address] Social History Tobacco UseTypesPacks/DayYears UsedDateSmoking Tobacco: Every DayCigarettes Started: 1975 Comments:5-7 cigarettes a da y Alcohol UseStandard Drinks/WeekCommentsNot Currently0 (1 standard drink = 0.6 oz pure alcohol)caffeine; 6 cups of coffee per dayPHQ-2AnswerDate RecordedPatient Health Questionnaire-2 Yoqsu463Sex and Gender InformationValueDate RecordedSex Assigned at BirthNot on fileLegal VtvUzhi8311/08/2022 6:34 PM EDT Gender IdentityNot on fileSexual OrientationNot on fileOccupationIndustryJob Start DateJob 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, engineerNot on fileNot on fileNot on file documented as of this encounter Progress Notes * Jelly Stokes LPN - 08/17/2025 9:36 AM EST Pt called requesting a referral to Dr. Medeiros. Please advise, thank you. * Tegan Melvin NP - 08/17/2025 9:36 AM EST Ok for referral. * Jelly Stokes LPN - 08/17/2025 9:36 AM EST Referral sent. documented in this encounter Plan of Treatment DateTypeDepartmentCare Team (Latest Contact Info)Nhqaxoxskkm42/23/2026 4:00 PM ESTOffice Visit [facility] [address] [place] [address] NameTypePriorityAssociated DiagnosesOrder ScheduleAmbulatory referral to PulmonologyOutpatient ReferralRoutine Chronic obstructive pulmonary disease, unspecified COPD type (HCC) Solitary pulmonary nodule Expected: 08/17/2025 (Approximate), Expires: 02/15/2026documented as of this encounter Visit Diagnoses Diagnosis Chronic obstructive pulmonary disease, unspecified COPD type (HCC)- Primary Solitary pulmonary nodule documented in this encounter Care Teams Team MemberRelationshipSpecialtyStart DateEnd Date Ismael Morales MD [address] [place] [address] PCP - Devoted08/27/20 Ismael Morales MD [address] [place] [address] PCP - GeneralInternal Medicine01/18/23 Saúl Wigigns MD 703 [facility] [address] [place] [address] Referring PhysicianCardiology09/24/24 Harish Floyd MD [facility] [place] [address] Referring PhysicianPodiatr09/24/24 Jelly Stokes LPN [address] [place] [address] Licensed Practical NurseFamily Medicine09/24/24 Sofía Bedolla OD Ophthalmology09/12/23documented as of this encounter
--- OUTSIDE RECORDS SUMMARY | 2025-08-17 21:00 | XMS_ITS | Clinical Summary ---
Author Organization [facility] Address [address] [place] [address] Phone Care Team Providers Care Electro Tech Name Role Phone Ismael Morales MD Primary Care Provider [phone] Allergies Active AllergyReactionsCriticalityNoted NggeHfkuyriaYqwoqxnRwzcy66/02/2025 Patient refuses he has history of ulcers DuiqqdwTtqzhomlitxxhn06/10/2024 Other Reaction(s): Hallucinating Iodinated Contrast MediaAnaphylaxis,Unknown,GvmfhxdeKkhx16/02/2012Lisinopril Other01/22/2024enicillinsUnknown,MnumbxjuNyv98/02/3138Krmnppo-Iho-Gvz Reductase IrqbqkewbrLztgizrKnzetc91/28/1001IjihgpywmTrwdeZeoizq71/02/2025 fatigue Medications MedicationSigDispense QuantityRefillsLast FilledStart DateEnd DateStatus ubidecarenone (COENZYME Q10, BULK, MISC) Take 200 mg by mouth.Active pantoprazole (ProtoNix) 40 mg EC tablet Take 1 tablet (40 mg) by mouth once daily.Active nitroglycerin (Nitrostat) 0.[address] 1 tablet (0.4 mg) under the tongue.12/25/2017Active carvedilol (Coreg) 6.25 mg tablet Take 1 tablet (6.25 mg) by mouth 2 times a day.Active PARoxetine (Paxil) 30 mg tablet 1 tablet (30 mg) early in the morning..08/05/2024ctive coenzyme M76-vbgdxww E 100-5 mg-unit capsule Take 2 capsules by mouth once daily.Active Lactobacillus acidophilus (Probiotic) 10 billion cell capsule Take 1 capsule by mouth early in the morning..Active furosemide (Lasix) 20 mg tablet Take 1 tablet (20 mg) by mouth once daily.Active potassium chloride CR 10 mEq ER tablet Take 1 tablet (10 mEq) by mouth once daily. Do not crush, chew, or split.Active Active Problems ProblemNoted DateDiagnosed DateStatin noutqrkjbbb30/02/2025Hx of endovascular stent graft for abdominal aortic uxhmmeni85/28/2024Mild aortic stenosis 02/22/2024AD (coronary artery disease)02/22/2024History of PTCA02/22/2024 Paroxysmal atrial irnikjiwxyjt57/28/2024ardiomyopathy, nalefdtq92/28/2024 Current jwzhzv8102/22/2024ody mass index (BMI) 19.9 or less, adult02/22/2024reop cardiovascular exam02/22/2024bnormal EKG002/22/2024 Resolved Problems ProblemNoted DateDiagnosed DateResolved DateHigh risk medication use02/22/2024 12/26/2024 Encounters DateTypeDepartmentCare QwdiWmbdanowfjt90/09/2025Scanned Document [facility] [address] [place] [place] [address] Scanning, Generic Provider from Last 3 Months Immunizations ImmunizationAdministration DatesNext DueFlu vaccine (IIV4), preservative free *Check age/dose*06/28/2017Flu vaccine, quadrivalent, high-dose, preservative free, age 65y+ (FLUZONE)05/21/2023Flu vaccine, trivalent, preservative free, HIGH-DOSE, age 65y+ (Fluzone)06/18/2024,07/31/2022,05/23/2021,06/26/2016, 05/20/2014Flu vaccine, trivalent, preservative free, age 6 months and greater (Fluarix/Fluzone/Flulaval)06/01/2015Influenza Whole12/22/2002Influenza, Pnrhvxyjvuf34/01/2021,05/27/2020Influenza, seasonal, intradermal, preservative free05/07/2013Influenza, trivalent, nikksibypb83/02/2020,05/06/2019,07/02/2018 Pneumococcal conjugate vaccine, 13-valent (PREVNAR 13)06/01/2015Pneumococcal polysaccharide vaccine, 23-valent, age 2 years and older (PNEUMOVAX 23) 05/31/2009RSV, 60 Years And Older (AREXVY)05/21/2023Td (adult), unspecified 12/22/2002 Social History Tobacco UseTypesPacks/DayYears UsedDateSmoking Tobacco: Every DayCigarettes Smokeless Tobacco: Never Tobacco Cessation:Counseling Given: Yes Alcohol UseStandard Drinks/WeekCommentsNever0 (1 standard drink = 0.6 oz pure alcohol)Sex and Gender InformationValueDate RecordedSex Assigned at BirthNot on fileLegal UgwVwyd17/25/2022 7:18 PM ESTGender IdentityNot on fileSexual OrientationNot on file Last Filed Vital Signs Vital SignReadingTime TakenCommentsBlood Lxmhvvjl263/7805 2:20 PM EDT Ysagy693812/26/2024 1:54 PM DURDhgautiextd63.6 ??C (97.8 ??F)11/16/2020 1:06 PM EDTRespiratory Rate--Oxygen Saturation--Inhaled Oxygen Concentration--Iubsee90.2 kg (135 lb)12/26/2024 1:54 PM PIWTmnzlc099.3 cm (5' 9 )12/26/2024 1:54 PM EDT Body Mass Index19.9412/26/2024 1:54 PM EDT Plan of Treatment DateTypeDepartmentCare Team (Latest Contact Info)Hnbdrxmpkjn45/07/2026 2:30 PM ESTOffice Visit at [facility] [address] [address] Saúl Wiggins MD 703 [facility] [address] [place] [address] Health MaintenanceDue DateLast DoneCommentsLipid Panel1942Medicare Annual Wellness Visit (AWV)2CKD: Urine Protein Uuwzigvkl64/28/1961Zoster Vaccines (1 of 2)1DTaP/Tdap/Td Vaccines (1 - Tdap) Creatinine Level, 05/05/2018, 05/04/2018, Additional history existsDiabetes Cytmsswrv68, 05/05/2018, 05/04/2018, Additional history existsPotassium Level, 05/05/2018, 05/04/2018, Additional history existsInfluenza Vaccine (#1)/, 05/21/2023, 07/31/2022, Additional history existsCOVID-19 Vaccine ( season) /, 12/03/2020, 11/05/20206608Ehhwqduhgqnyhc49/11/202607/11/2025, 07/03/2024, 01/06/2024, Additional history existsPneumococcal VaccineCompleted 06/01/2015, 05/31/2009RSV High Risk: (Elderly (60+) or Population) Kzzzgjonh36/25/2023HIB VaccinesAged OutNo longer eligible based on patient's age to complete this topicHPV VaccinesAged OutNo longer eligible based on patient's age to complete this topicHepatitis A VaccinesAged OutNo longer eligible based on patient's age to complete this topicHepatitis B VaccinesAged OutNo longer eligible based on patient's age to complete this topicIPV VaccinesAged OutNo longer eligible based on patient's age to complete this topicMeningococcal VaccineAged OutNo longer eligible based on patient's age to complete this topic Rotavirus VaccinesAged OutNo longer eligible based on patient's age to complete this topic Procedures Procedure NamePriorityDate/TimeAssociated DiagnosisCommentsECHOCARDIOGRAM 03/06/2025 RENAL FUNCTION YHBCAJvrytru01/10/2018 6:45 AM EDT from Last 3 Months or Most Recently Relevant to Health Maintenance Results * Echocardiogram (03/06/2025) Narrative 03/06/2025 Ordered by an unspecified provider. Authorizing ProviderResult TypeResult StatusGeneric Provider ScanningCV ECHO PROCEDURESFinal Result * (ABNORMAL) Renal Function Panel (05/06/2018 6:45 AM EDT)ComponentValueRef RangeTest MethodAnalysis TimePerformed AtPathologist KlytvcwuzPaplcze4330 - 99 mg/dLSELECT [facility] TXVXlnzyt644951 - 145 mmol/[facility] LABPotassium4.23.5 - 5.3 mmol/L [facility] EPELlxhwnzs64380 - 107 mmol/[facility] TZVZwtgrfvaqlm3005 - 32 mmol/[facility] LABAnion Znm2796 - 20 mmol/[facility] LABUrea Cdywpvdd024 - 23 mg/dL[facility] LAB Creatinine0.900.50 - 1.30 mg/dLSELECT [facility] LABGLOMERULAR FILTRATION RATE-NON >60>60 mL/min/1.31s3KUOAS LABGLOMERULAR FILTRATION RATE->60>60 mL/min/1.95l1DWZTW LABComment: CALCULATIONS OF ESTIMATED GFR ARE PERFORMED USING THE MDRD STUDY EQUATION FOR THE IDMS-TRACEABLE CREATININE METHODS. CLIN CHEM 2007;53:766-72 Calcium9.28.6 - 10.6 mg/dLSELECT [facility] LABPhosphorus2.92.5 - 4.9 mg/dLSELECT [facility] LABComment: The performance characteristics of phosphorus testing in heparinized plasma have been validated by the individual laboratory site where testing is performed. Testing on heparinized plasma is not approved by the FDA; however, such approval is not necessary. Albumin3.2(L)3.4 - 5.0 g/dLSELECT [facility] LABSpecimen (Source)Anatomical Location / LateralityCollection Method / VolumeCollection TimeReceived Time05/06/2018 6:45 AM EDT05/06/2018 7:19 AM EDT Narrative Authorizing ProviderResult TypeResult StatusSoftlab ConversionLAB BLOOD ORDERABLESFinal ResultPerforming OrganizationAddressCity/State/ZIP CodePhone Number [facility] LAB from Last 3 Months or Most Recently Relevant to Health Maintenance Insurance * Guarantor: Ismael Andrescount TypeRelation to PatientDate of PhoneBilling AddressPersonal/RugptyQzto1942 [facility] [place] [address] Care Teams Team MemberRelationshipSpecialtyStart DateEnd Ismael Morales MD [address] [place] [phone] PCP - General08/27/17
--- OUTSIDE RECORDS SUMMARY | 2025-08-17 21:00 | XMS_ITS | Encounter Summary ---
Author Organization [facility] Address [address] [place] [address] Phone Care Team Providers Care Motion Picture Film Examiner Name Role Phone Ismael Morales MD Primary Care Provider [phone] Encounter Details DateTypeDepartmentCare Team (Latest Contact Info)Ucvhueadaxz1942canned Document [facility] [address] [place] [phone] Scanning, Generic Provider Social History Tobacco UseTypesPacks/DayYears UsedDateSmoking Tobacco: Never AssessedSex and Gender InformationValueDate RecordedSex Assigned at BirthNot on fileLegal Sex Male07/21/2022 7:18 PM ESTGender IdentityNot on fileSexual OrientationNot on filedocumented as of this encounter Plan of Treatment DateTypeDepartmentCare Team (Latest Contact Info)Btsxjlfkwsy66/07/2026 2:30 PM ESTOffice Visit [facility] [address] [facility] [address] [place] [address] Saúl Wiggins MD [address]03 [facility] [address] [place] [address] documented as of this encounter Visit Diagnoses Not on filedocumented in this encounter Care Teams Team MemberRelationshipSpecialtyStart DateEnd Date Ismael Morales MD [address] [place] [address] [facility] - General08/27/17documented as of this encounter
--- OUTSIDE RECORDS SUMMARY | 2025-08-17 21:00 | XMS_ITS | Encounter Summary ---
Author Organization [facility] Address [address] [place] [address] Phone Care Team Providers Care Analog Circuit Designer Name Role Phone Ismael Morales MD Primary Care Provider [phone] Encounter Details DateTypeDepartmentCare Team (Latest Contact Info)Ldxbsdtmfhf88/09/2025Scanned Document [facility] [address] [place] [phone] Scanning, Generic Provider Social History Tobacco UseTypesPacks/DayYears UsedDateSmoking Tobacco: Every DayCigarettes Smokeless Tobacco: NeverAlcohol UseStandard Drinks/WeekCommentsNever0 (1 standard drink = 0.6 oz pure alcohol)Sex and Gender InformationValueDate RecordedSex Assigned at BirthNot on fileLegal XmwNfms33/25/2022 7:18 PM EST Gender IdentityNot on fileSexual OrientationNot on filedocumented as of this encounter Plan of Treatment DateTypeDepartmentCare Team (Latest Contact Info)Bfawqjfzrhv95/07/2026 2:30 PM ESTOffice Visit [facility] [address] [facility] [address] [place] [address] Saúl Wiggins MD 703 [facility] [address] [place] [address] documented as of this encounter Visit Diagnoses Not on filedocumented in this encounter Additional Health Concerns AssessmentNoted TimeA fall risk assessment has been completed for the patient 12/26/2024 1:54 PM EDTdocumented as of this encounter Care Teams Team MemberRelationshipSpecialtyStart DateEnd Ismael Morales MD [address] [place] [address] PCP - General08/27/17documented as of this encounter
--- OUTSIDE RECORDS SUMMARY | 2025-08-17 21:00 | XMS_ITS | Clinical Summary ---
Author Organization [facility] Address [address] [place] [address] Care Team Providers Care Aircraft Sheet Metal Mechanic Name Role Phone Unavailable Primary Care Provider Unavailabl e Allergies Active AllergyReactionsCriticalityNoted DateCommentsIodinated Contrast Media Anaphylaxis,XhrkdbshExbm73/02/2012 IdvzpjzxukLdivlGigw85/28/2024 Mental Disturbances PenicillinsOther,WxfjkphkXua68/02/2012 Medications MedicationSigDispense QuantityRefillsLast FilledStart DateEnd DateStatus carvedilol (Coreg) 6.25 mg tablet Take 6.25 mg by mouth with breakfast and with evening meal.Active citalopram (CeleXA) 20 mg tablet 20 mg in the morning.Active pantoprazole (ProtoNix) 40 mg EC tablet Take 40 mg by mouth before breakfast.06/09/2021ctive potassium chloride CR (Klor-Con) 8 mEq ER tablet Take 8 mEq by mouth in the morning.Active furosemide (Lasix) 20 mg tablet Take 20 mg by mouth in the morning.4Active metoprolol succinate XL (Toprol-XL) 50 mg 24 hr tablet 50 mg in the morning.Active coenzyme Q-10 200 mg capsule Take 200 mg by mouth in the morning.10/22/2019Active levalbuterol (Xopenex) 1.25 mg/3 mL nebulizer solution Take 1 ampule by nebulization every 6 (six) hours if needed for wheezing or shortness of breath.Active PARoxetine (Paxil) 30 mg tablet Take 30 mg by mouth in the morning.Active Lactobacillus acidophilus 10 billion cell capsule in the morning.01/23/2024ctive tiotropium-olodateroL (Stiolto Respimat) 2.5-2.5 mcg/actuation mist inhaler Indications:Centrilobular emphysema (CMS/HCC)Inhale 2 Inhalations in the morning. 4 g 5Active Active Problems ProblemNoted DateDiagnosed DateParoxysmal atrial fyasauoxfjjw15/21/2024hronic kidney disease (CKD) stage G3b/A1, moderately decreased glomerular filtration rate (GFR) between 30-44 mL/min/1.73 square meter and albuminuria creatinine ratio less than 30 mg/g002/15/2024Nicotine dependence, cigarettes, uncomplicated 01/24/2023Obstructive sleep apnea wyxevycq47/15/1674Dqdeweimto88/06/2016Mixed qluumiiyqyhweo55/02/2015 Encounters DateTypeDepartmentCare AdqvUjdszxumeed80/05/2025Orders Only [facility] [address] [place] [address] [place] [phone] Kasey Parrish MA SOB (shortness of breath) (Primary Dx); Centrilobular emphysema (CMS/HCC); Asthma-COPD overlap syndrome (CMS/HCC)06/26/2025 12:05 AM EDT - 06/26/2025 11:59 PM EDTHospital Encounter [facility] Radiology External Films [address] [facility] [place] [phone] Discharge Disposition: Home or Self Care ()06/26/2025 - 06/26/2025 12:04 AM EDTHospital Encounter [facility] Radiology External Films [address] [place] [phone] Discharge Disposition: Home or Self Care ()06/18/2025 4:00 PM EDTConsult [facility] [address] [place] [address] [place] [phone] Oneil Funes MD Centrilobular emphysema (CMS/HCC) (Primary Dx); Asthma-COPD overlap syndrome (CMS/HCC); Simple chronic bronchitis (CMS/HCC); Current smokerfrom Last 3 Months Family History Medical HistoryRelationNameCommentsAsbestosisFatherLung cancerFatherAsbestosis MotherLung cancerMotherRelationNameStatusCommentsFatherMother Social History Tobacco UseTypesPacks/DayYears UsedDateSmoking Tobacco: Every ZzjVmrzhzyzay341 Started: 1974Passive Smoke Exposure: PastSmokeless Tobacco: Never Tobacco Cessation:Ready to Q uit: Yes; Counseling Given: Yes Alcohol UseStandard Drinks/WeekCommentsNot Currently0 (1 standard drink = 0.6 oz pure alcohol)PHQ-2AnswerDate RecordedPatient Health Questionnaire-2 Score0 06/18/2025UT Safety & EnvironmentAnswerDate RecordedFear of Current or Ex-PartnerNot on file10/18/2023Emotionally AbusedNot on file10/18/2023hysically AbusedNot on 10/18/2023Sexually AbusedNot on file10/18/2023hysically or Sexually AbusedNot on 10/18/2023Sex and Gender InformationValueDate Recorded Sex Assigned at ZrnttMhxn83/23/2025 3:28 PM EDTLegal HjuUidl3702/23/2022 12:32 AM EDTGender OytpuoqkUioc14/23/2025 3:28 PM EDTSexual OrientationChoose not to znzechjr89/23/2025 3:28 PM EDT Last Filed Vital Signs Vital SignReadingTime TakenCommentsBlood Tboollnt905/421 4:00 PM EDT Bzosl734106/18/2025 4:00 PM EDTTemperature--Respiratory Ysxy4513 1:33 PM EDTOxygen Jdvxjeeznk02%06/18/2025 4:00 PM EDTroom air at restInhaled Oxygen Concentration--Qokyup90.5 kg (140 lb)06/18/2025 4:00 PM FFYDzrsbs078.3 cm (5' 9 )06/18/2025 4:00 PM EDTBody Mass Index20.6706/18/2025 4:00 PM EDT Plan of Treatment DateTypeDepartmentCare Team (Latest Contact Info)Foxvondedaq35/23/2026 2:30 PM EDTOffice Visit [facility] [address] [place] [address] [place] [address] Oneil Funes MD [address] [facility] [place] [address] Health MaintenanceDue DateLast DoneCommentsMedicare Annual Wellness (AWV) 1942Zoster Vaccines (1 of 2), 10/27/2010dult Tetanus COVID-19 Vaccine ( season), 12/03/2020, 11/05/2020Influenza Vaccine (#1)/, 05/21/2023, 07/31/2022, Additional history existsDepression Qwisluxwp80 Fall Risk Gannwozzr58Pneumococcal Vaccine: 50+ YearsCompleted 06/01/2015, 05/31/2009HIB VaccinesAged OutNo longer eligible based on patient's age to complete this topicHPV VaccinesAged OutNo longer eligible based on patient's age to complete this topicIPV VaccinesAged OutNo longer eligible based on patient's age to complete this topicMeningococcal B VaccineAged OutNo longer eligible based on patient's age to complete this topicMeningococcal VaccineAged OutNo longer eligible based on patient's age to complete this topicRotavirus VaccinesAged OutNo longer eligible based on patient's age to complete this topic Procedures Procedure NamePriorityDate/TimeAssociated DiagnosisCommentsXR TRANSFER OF OUTSIDE AWKYWElvogdf96/31/2025 12:[address] TRANSFER OF OUTSIDE MIVJZKwmwcxv42/31/2025 12:00 AM EDT from Last 3 Months Results * XR transfer of outside films (06/26/2025 12:05 AM EDT)Specimen (Source) Anatomical Location / LateralityCollection Method / VolumeCollection Time Received Time Narrative IMAGING - 06/26/2025 2:16 PM EDT This order has been auto-finalized and does not contain a result. Authorizing ProviderResult TypeResult StatusFadi Safi MDIMG XR PROCEDURESFinal ResultPerforming OrganizationAddressCity/State/ZIP CodePhone Number IMAGING * CT transfer of outside films (06/26/2025 12:00 AM EDT)Specimen (Source) Anatomical Location / LateralityCollection Method / VolumeCollection Time Received Time Narrative IMAGING - 06/26/2025 2:15 PM EDT This order has been auto-finalized and does not contain a result. Authorizing ProviderResult TypeResult StatusFadi Safi MDIMG CT PROCEDURESFinal ResultPerforming OrganizationAddressCity/State/ZIP CodePhone Number IMAGING from Last 3 Months Insurance
--- OUTSIDE RECORDS SUMMARY | 2025-08-17 21:00 | XMS_ITS | Encounter Summary ---
Author Organization [facility] Address [address] [facility] [place] [address] Care Team Providers Care Safety Aide Name Role Phone Ismael Morales MD Unavailable [phone] Ismael Morales MD Primary Care Provider [phone] Saúl Wiggins MD Unavailable Harish Floyd MD Unavailable [phone] Jelly Stokes LPN Unavailable Encounter Details DateTypeDepartmentCare Team (Latest Contact Info)Wkzfxobdrzs17/08/2025Results Follow-Up [facility] [address] [facility] [address] [place] [address] Ismael Morales MD [address] [facility] [address] [place] [address] N-Terminal Probnp, IgE, CBC and differential, Additional followed-up results: 4 Social History Tobacco UseTypesPacks/DayYears UsedDateSmoking Tobacco: Every DayCigarettes Started: 1975Alcohol UseStandard Drinks/WeekCommentsNot Currently0 (1 standard drink = 0.6 oz pure alcohol)caffeine; 6 cups of coffee per dayPHQ-2AnswerDate RecordedPatient Health Questionnaire-2 Pibxi136Sex and Gender InformationValueDate RecordedSex Assigned at BirthNot on fileLegal SexMale 11/08/2022 6:34 PM EDTGender IdentityNot on fileSexual OrientationNot on file 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 They are going to drain the fluid off of his lungs and admit him. * Result Encounter Note - Miguel Land MA - 08/03/2025 1:21 PM EST Spoke to Jane at [facility] and informed her about the patient. Lab results and ECHO faxed to [phone]. * Result Encounter Note - Ismael Morales MD - 08/03/2025 1:13 PM EST Can you please send labs to them and call nurse there to let them know he is coming and has hyperkalemia and heart failure. Send ECHO to them as well. Thanks! * Telephone Encounter - Jelly Stokes LPN - 08/03/2025 12:11 PM EST Pt called and stated he was going to go to [facility]. * Telephone Encounter - Jelly Stokes LPN - 08/03/2025 11:55 AM EST Spoke with pt and explained everything above. He states he has a lot on his plate, so he will consider going to the ER and let me know what his decision is. * Result Encounter Note - Ismael Morales MD - 08/03/2025 10:47 AM EST We need to address the potassium also. Go over meds with him since his chart says he stopped the Lasix and potassium as of 07/21, but if he is back on both, change med list. I wanted to see how he felt first because if he is very SOB and has swelling, he may need inpatient treatment. So, he has an option to go to ER where he will be evaluated and likely admitted. I cannot promise they would admitthough. They would recheck labs and probably do EKG and CXR and then decide. I believe going to ER would be best option given the labs I got back. If he does not want to go, seeing a pallet repairer JOAN would be a good idea. He should take double the Lasix he is on currently if he is taking Lasix. Heshould not take any potassium and he should have another potassium level drawn STAT this AM if not going to ER to see where it is today. * Telephone Encounter - Jelly Stokes LPN - 08/03/2025 10:12 AM EST Pt informed of results. He states he is feeling lousy. He is still very short of breath and he has noticed his left ankle is swollen. He did ask about the potassium reading of 6.1. He is taking 20 meq daily and asked if he should continue. Please advise, thank you. * Result Encounter Note - Ismael Morales MD - 08/03/2025 9:37 AM EST Please call and tell him the ECHO showed not much change in his ejection fraction but the BNP elevation indicates severe heart strain and high risk of decompensated heart failure. How is he feeling today? Is he more SOB? Is he noticing swelling in ankles? documented in this encounter Plan of Treatment DateTypeDepartmentCare Team (Latest Contact Info)Pyjolxbahit38/23/2026 4:00 PM ESTOffice Visit [facility] [address] [place] [address] documented as of this encounter Visit Diagnoses Not on filedocumented in this encounter Care Teams Team MemberRelationshipSpecialtyStart DateEnd Ismael Morales MD [address] [facility] [address] [place] [address] PCP - Devoted08/27/20 Ismael Morales MD [address] [facility] [address] [place] [address] PCP - GeneralInternal Medicine01/18/23 Saúl Wiggins MD [address] [facility] [address] [place] [address] Referring PhysicianCardiology09/24/24 Harish Floyd MD [facility] [place] [address] Referring PhysicianPodiatr09/24/24 Jelly Stokes LPN [address] [facility] [address] [place] [address] Licensed Practical NurseFamily Medicine09/24/24 Sofía Bedolla OD Ophthalmology09/12/23documented as of this encounter
--- OUTSIDE RECORDS SUMMARY | 2025-08-17 21:00 | XMS_ITS | Clinical Summary ---
Author Organization [facility] Address [address] [place] [address] Care Team Providers Care Legal Assistant Name Role Phone Ismael Morales MD Unavailable [phone] Ismael Morales MD Primary Care Provider Saúl Wiggins MD Unavailable Harish Floyd MD Unavailable [phone] Jelly Stokes LPN Unavailable Allergies Active AllergyReactionsCriticalityNoted DateCommentsAcetaminophen-CodeineUnknown Low6419Vavfopc49/02/2025 Other Reaction(s): Other Patient refuses he has history of ulcers WzpzsglNuj04/10/2024 Other Reaction(s): Hallucinating Iodinated Contrast FgqesQieiyxlnHkik98/02/8566FcorrpbuxxOnd93/28/2024Penicillins ZrdinelmCws10/02/0738OwcnvrnAmmymdtPwn18/31/8180SyqonhhjyHzpati88/02/2025 Other Reaction(s): Other fatigue Medications MedicationSigDispense QuantityRefillsLast FilledStart DateEnd DateStatus coenzyme Q-10 100 MG capsule Take 2 capsules by mouth 1 (one) time each day.Active Lactobacillus (Probiotic Acidophilus) capsule Take 1 capsule by mouth 1 (one) time each day.Active nitroglycerin (Nitrostat) 0.[address] 0.4 mg under the tongue every 5 (five) minutes if needed for chest pain. Active PreviDent 5000 Booster Plus 1.1 % paste Take 1 strip by mouth 1 (one) time each day.3Active triamcinolone (Kenalog) 0.1 % cream Apply 1 gram daily to scaly skin on trunk and extremities for 2 weeks as needed for flares of euoqvw155Active pantoprazole (ProtoNix) 40 MG EC tablet Indications:Gastro-esophageal reflux disease without esophagitisTAKE 1 TABLET BY MOUTH ONCE DAILY 100 tablet 5Active metoprolol succinate XL (Toprol-XL) 50 MG 24 hr tablet Indications:PAF (paroxysmal atrial fibrillation) (HCC)Take 1 tablet (50 mg) by mouth Daily Do not crush or chew. 90 tablet 5Active PARoxetine (Paxil) 30 MG tablet Indications:Depression, unspecified depression typeTAKE 1 TABLET BY MOUTH IN THE MORNING 30 tablet 5Active albuterol HFA 90 mcg/act inhaler Indications:SOB (shortness of breath)Inhale 2 puffs every 4 (four) hours if needed for wheezing 18 g 5Active furosemide (Lasix) 20 MG tablet Indications:Chronic systolic congestive heart failure (HCC)Take 1 tablet (20 mg) by mouth in the morning. Take with meals. As needed.08/07/2025tive potassium chloride CR (Klor-Con M10) 10 MEQ ER tablet Indications:Chronic systolic congestive heart failure (HCC)Take 1 tablet (10 mEq) by mouth Daily Do not crush or chew.5Active levalbuterol (Xopenex) 1.25 MG/3ML nebulizer solution Indications:Chronic obstructive pulmonary disease, unspecified COPD type (HCC) Take 3 (THREE) mL (1.25 mg) by nebulization every 6 (SIX) (six) hours if needed for FOR WHEEZING 75 mL 5Active carvedilol (Coreg) 6.25 MG tablet Take 6.25 mg by mouth in the morning and 6.25 mg before bedtime.04/01/2024 08/07/2025Discontinued albuterol HFA 90 mcg/act inhaler Indications:SOB (shortness of breath)Inhale 2 puffs every 4 (four) hours if needed for wheezing 18 g Discontinued(Reorder) nystatin (Mycostatin) 032085 UNIT/ML suspension Indications:ThrushTake 5 mL (500,000 Units) by mouth in the morning and 5 mL (500,000 Units) at noon and 5 mL (500,000 Units) in the evening and 5 mL (500,000 Units) before bedtime. Swish in mouth and spit. 280 mL Discontinued potassium chloride CR (Klor-Con M10) 10 MEQ ER tablet Indications:Chronic systolic congestive heart failure (HCC)Take 1 tablet (10 mEq) by mouth Daily as needed (only if furosemide is also taken) Do not crush or chew. 30 tablet 508/Discontinued(Reorder) levalbuterol (Xopenex) 1.25 MG/3ML nebulizer solution Indications:Chronic obstructive pulmonary disease, unspecified COPD type (HCC) Take 3 mL (1.25 mg) by nebulization every 6 (six) hours if needed for wheezing 84 mL 31014Discontinued furosemide (Lasix) 20 MG tablet Indications:Chronic systolic congestive heart failure (HCC)Take 1 tablet (20 mg) by mouth in the morning. Take with meals. As needed. 30 tablet 510/Discontinued(Reorder) furosemide (Lasix) 20 MG tablet Indications:Chronic systolic congestive heart failure (HCC)Take 1 tablet (20 mg) by mouth in the morning. Take with meals. As needed. 30 tablet 512/Discontinued(Therapy completed) potassium chloride CR (Klor-Con M10) 10 MEQ ER tablet Indications:Chronic systolic congestive heart failure (HCC)Take 1 tablet (10 mEq) by mouth Daily as needed (only if furosemide is also taken) Do not crush or chew.Discontinued Active Problems ProblemNoted DateDiagnosed DateGeneralized jipwpayb32/06/2025Statin intolerance 12/26/20242952Awniufytydhlbvoh83/12/2025Statin rrujuvpl06/12/2025Major depressive disorder, recurrent, jtaxwwwe53/12/2025Mild aortic qvfkiwom84/22/2024History of pnkxhtruthhbuk86/05/2024Iliac artery shwxyais61/31/2023Nicotine dependence, cigarettes, yblruvskocoef21/31/2023hronic systolic congestive heart failure 12/09/2020Obstructive sleep apnea qodffzge28/15/2021Gastroesophageal reflux qppekde3409/26/2020AF (paroxysmal atrial fibrillation)09/14/2020olitary pulmonary lcwrxw6306/22/2020Chronic obstructive pulmonary dpdevkc1406/12/2020Mitral clmsoeslhoorc04/05/2020Coronary artery aeacmab1201/21/2018MGUS (monoclonal gammopathy of unknown significance)12/31/2015PUD (peptic ulcer disease) 12/31/2015Abdominal aortic aneurysm without eiqblkc8905/28/2015Mixed bnfhurifmtxlgp96/02/2015Primary osteoarthritis involving multiple joints 05/28/2015Lumbosacral spondylosis without dbepswctkj80/09/2012 Resolved Problems ProblemNoted DateDiagnosed DateResolved DateAcute respiratory failure with adsnniu85/cute sidtayjziojv78omplete obstruction of small gznaxewbp20Incarcerated inguinal hernia /ecurrent right inguinal /sthma ongenital anomaly of heart ([facility]) Jugmjzmjnuqyof45Increased frequency of /31/2023 09/14/2023Memory lossNocturiaEmphysema, ysltrqmevec38iverticulitis of colon Jqduufmiyeeohe91Hydrouretererforated diverticulum of large rgljlndyt97Meralgia paresthetica Ischemic iexvhfbqomvkbn28epression iverticular disease of colonTobacco dependence hmziuzrr79Lumbago Encounters DateTypeDepartmentCare QljkFiaydtpzdmc41/22/2025Patient Outreach [facility] [address] [place] [address] Jelly Stokes LPN 08/14/2025Telephone [facility] Internal Medicine [address] [place] [address] Hetaljassi [place], [place] 08/12/2025Refill [place] [address] [place] [address] Ismael Morales MD Chronic obstructive pulmonary disease, unspecified COPD type (HCC)08/07/2025 9:45 AM ESTOffice Visit [facility] [address] [place] [address] Tegan Melvin, CAREER INFORMATION SPECIALIST Chronic systolic congestive heart failure (HCC) (Primary Dx); PAF (paroxysmal atrial fibrillation) (HCC); Chronic obstructive pulmonary disease, unspecified COPD type (HCC); Mixed qnurlfmxldbkep62/12/2025Orders Only [facility] Internal Medicine [address] [place] [address] Unallocated, Nomsarath Fraga MD 08/07/20256408Xwsvgl17/08/2025Results Follow-Up [facility] Medicine [address] [place] [address] Ismael Morales MD N-Terminal Probnp, IgE, CBC and differential, Additional followed-up results: 4 07/31/2025External Result Encounter [facility] Unsolicited Ismael Morales MD 07/27/2025Patient Outreach [facility] [address] [place] [address] Jelly Stokes LPN 07/21/2025 2:00 PM ESTOffice Visit [facility] [address] [place] [address] Isamel Morales MD Chronic obstructive pulmonary disease, unspecified COPD type (HCC) (Primary Dx); Chronic systolic congestive heart failure (HCC); Asthma, unspecified asthma severity, unspecified whether complicated, unspecified whether persistent (HCC); SOB (shortness of breath)07/21/20250072Bnhedv52/12/2025Patient Outreach [address] [place] [address] Jelly Stokes LPN 07/08/2025Telephone [facility] [address] [place] [address] Jelly Stokes LPN 06/24/2025Refill [facility] Internal Medicine [address] [place] [address] Ismale Morales MD Depression, unspecified depression type; Chronic systolic congestive heart failure (HCC)06/09/2025Refill [facility] [address] [place] [address] Jelly Stokes LPN Chronic obstructive pulmonary disease, unspecified COPD type (HCC)05/29/2025 Refill [facility] Internal Medicine [address] [place] [address] Angela Gupta LPN Chronic systolic congestive heart failure (HCC)from Last 3 Months Immunizations ImmunizationAdministration DatesNext DueInfluenza Whole12/22/2002Influenza, High Dose Seasonal, Preservative Free06/18/2024,07/31/2022,05/23/2021,06/28/2017, 06/26/2016,05/20/2014Influenza, High-dose Seasonal, Quadrivalent, Preservative Free05/21/2023Influenza, Fyvufyqkpip10/01/2021,05/27/2020Influenza, seasonal, injectable, preservative free06/01/2015Influenza, seasonal, intradermal, preservative free05/02/2021,05/07/2013Influenza, trivalent, agqjcndhca58/02/2020 ,05/06/2019,07/02/2018Moderna SARS-CoV-2 Giovnmdmoej05/09/2021,12/02/2020, 11/05/2020,1Pneumococcal Conjugate PCV 131Pneumococcal Polysaccharide JFYJ2869RSV, recombinant, protein subunit RSVpreF, adjuvant reconstitu, 120mcg/0.5mL, PF (Arexvy)05/21/2023Td (adult), unspecified 12/22/2002Zoster, live08/27/2014,10/27/2010 Family History Medical HistoryRelationNameCommentsHeart diseaseFatherHypertensionFatherLung cancerFatherCancerMotherHyperlipidemiaMotherRelationNameStatusCommentsFather DeceasedMotherDeceased Social History Tobacco UseTypesPacks/DayYears UsedDateSmoking Tobacco: Every DayCigarettes Started: 1975 Tobacco Cessation:Ready to Q uit: Not Asked; Counseling Given: Not Answered Comments:5-7 cigarettes a day Alcohol UseStandard Drinks/WeekCommentsNot Currently0 (1 standard drink = 0.6 oz pure alcohol)caffeine; 6 cups of coffee per dayPHQ-2AnswerDate RecordedPatient Health Questionnaire-2 Snycw572Sex and Gender InformationValueDate RecordedSex Assigned at BirthNot on fileLegal YskNzgp6511/08/2022 6:34 PM EDT Gender IdentityNot on fileSexual OrientationNot on fileOccupationIndustryJob Start DateJob 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, engineerNot on fileNot on fileNot on file Last Filed Vital Signs Vital SignReadingTime TakenCommentsBlood Bbzdxlya744/6808/07/2025 10:02 AM EST Hronl129908/07/2025 10:02 AM PIXPadnxzucjdd82.4 ??C (97.5 ??F)01/30/2024 9:42 AM EDTRespiratory Tczg781303/18/2024 2:25 PM EDTOxygen Tcfiveactp48%07/21/2025 1:54 PM ESTInhaled Oxygen Concentration--Soodgy92 kg (141 lb)08/07/2025 10:02 AM EST Taruuv019.2 cm (5' 7 )08/07/2025 10:02 AM ESTBody Mass Index22.0808/07/2025 10:02 AM EST Plan of Treatment DateTypeDepartmentCare Team (Latest Contact Info)Cbbpiskahvt84/23/2026 4:00 PM ESTOffice Visit [facility] [address] [place] [phone] Health MaintenanceDue DateLast DoneCommentsCOVID-19 Vaccine ( season) , 12/03/2020, 12/03/2020, Additional history exists Pneumococcal Vaccine: 65+ HkjbeApjxgbmwf93/06/2015, 05/31/2009Influenza Vaccine Mrfwviabs54/05/2025, 06/18/2024, 05/21/2023, Additional history exists Procedures Procedure NamePriorityDate/TimeAssociated DiagnosisCommentsCBC WITH AUTO TMIURGTRFGDBAubshdm62/09/2025 1:59 PM ESTBASIC METABOLIC RKPNBWrfvigq07/09/2025 1:59 PM ESTB-TYPE NATRIURETIC ORWDNCYDgzsjdm09/09/2025 1:59 PM ESTTROPONIN T, HIGH JHBHWFZAEXSPkoiutr67/09/2025 1:59 PM ESTB-TYPE NATRIURETIC PEPTIDERoutine 08/03/2025 1:58 PM ESTPROTHROMBIN TIME-PDCBvpftiw02/08/2025 1:58 PM EST COMPREHENSIVE METABOLIC YRFUNQbphiyc26/08/2025 1:58 PM ESTMAGNESIUMRoutine 08/03/2025 1:58 PM ESTTROPONIN T, HIGH OUAZJCGGOOPQeikztf02/08/2025 1:58 PM EST CBC WITH AUTO MVIZDQKKKHSRZjqrvyk50/08/2025 1:58 PM ESTTRANSTHORACIC ECHO (TTE) KLEMPCIU12/05/2025 10:53 AM EST FOLATE, OTZYPBomqcar88/03/2025 12:43 PM EST Chronic obstructive pulmonary disease, unspecified COPD type (HCC) Chronic systolic congestive heart failure (HCC) Asthma, unspecified asthma severity, unspecified whether complicated, unspecified whether persistent (HCC) VITAMIN S83Bmdfhmx25/03/2025 12:43 PM EST Chronic obstructive pulmonary disease, unspecified COPD type (HCC) Chronic systolic congestive heart failure (HCC) Asthma, unspecified asthma severity, unspecified whether complicated, unspecified whether persistent (HCC) IOUDhmrpih08/03/2025 12:43 PM EST Chronic obstructive pulmonary disease, unspecified COPD type (HCC) Chronic systolic congestive heart failure (HCC) Asthma, unspecified asthma severity, unspecified whether complicated, unspecified whether persistent (HCC) COMPREHENSIVE METABOLIC GHXRVIyptmgo07/03/2025 12:43 PM EST Chronic obstructive pulmonary disease, unspecified COPD type (HCC) Chronic systolic congestive heart failure (HCC) Asthma, unspecified asthma severity, unspecified whether complicated, unspecified whether persistent (HCC) CBC (INCLUDES DIFF/PLT)Ohapsid1607/29/2025 12:43 PM EST Chronic obstructive pulmonary disease, unspecified COPD type (HCC) Chronic systolic congestive heart failure (HCC) Asthma, unspecified asthma severity, unspecified whether complicated, unspecified whether persistent (HCC) IMMUNOGLOBULIN VGqyotym23/03/2025 12:43 PM EST Chronic obstructive pulmonary disease, unspecified COPD type (HCC) Chronic systolic congestive heart failure (HCC) Asthma, unspecified asthma severity, unspecified whether complicated, unspecified whether persistent (HCC) N-TERMINAL NJKOHDYhweqms41/03/2025 12:43 PM EST Chronic obstructive pulmonary disease, unspecified COPD type (HCC) Chronic systolic congestive heart failure (HCC) Asthma, unspecified asthma severity, unspecified whether complicated, unspecified whether persistent (HCC) from Last 3 Months Results * TROPONIN T, HIGH SENSITIVITY (08/04/2025 1:59 PM EST) Only the most recent of2 resultswithin the time period is included. Narrative Authorizing ProviderResult TypeResult StatusAndrei Opescu MDLAB BLOOD ORDERABLES Final Result * CBC auto differential (08/04/2025 1:59 PM EST) Only the most recent of2 resultswithin the time period is included. Specimen (Source)Anatomical Location / LateralityCollection Method / Volume Collection TimeReceived TimeBloodVenous blood specimen / Unknown Narrative Authorizing ProviderResult TypeResult StatusAndrei Opescu MDLAB BLOOD ORDERABLES Final Result * B-type natriuretic peptide (08/04/2025 1:59 PM EST) Only the most recent of2 resultswithin the time period is included. Specimen (Source)Anatomical Location / LateralityCollection Method / Volume Collection TimeReceived TimeBloodVenous blood specimen / Unknown Narrative Authorizing ProviderResult TypeResult StatusAndrei Opescu MDLAB BLOOD ORDERABLES Final Result * Basic metabolic panel (08/04/2025 1:59 PM EST)Specimen (Source)Anatomical Location / LateralityCollection Method / VolumeCollection TimeReceived Time BloodVenous blood specimen / Unknown Narrative Authorizing ProviderResult TypeResult StatusAndrei Opescu MDLAB BLOOD ORDERABLES Final Result * Protime-INR (08/03/2025 1:58 PM EST)Specimen [...] * Comprehensive metabolic panel (08/03/2025 1:58 PM EST) Only the most recent of2 resultswithin the time period is included. Specimen (Source)Anatomical Location / LateralityCollection Method / Volume Collection TimeReceived TimeBloodVenous blood specimen / Unknown Narrative Authorizing ProviderResult TypeResult StatusNoms Provider Unallocated MDLAB BLOOD ORDERABLESFinal Result * Transthoracic echo (TTE) complete (07/31/2025 10:53 AM EST)Anatomical Region LateralityModalityHeartUltrasoundSpecimen (Source)Anatomical Location / LateralityCollection Method / VolumeCollection TimeReceived Time07/31/2025 10:53 AM EST Narrative 07/31/2025 8:45 PM EST [facility] [address] ?[address] ? [place] [address] ? Echocardiogram ? Signed ? Patient: Ismael Andres ?MR#: [id number] ?? [id number] ? : 1940 ?Acct:[id number] ? Age/Sex: 85 / M ?ADM Date: 07/31/25 ? Loc: EL ?Room: ?Type: REG CLI ?? Attending Dr: Ismael Morales MD ? Ordering Provider: Ismael Morales MD ?? Date of Service: 07/31/25/ ?? ECH/ECH echo transthoracic: CHF ? Copies to: Juanita Mcfarland MD ?? Ismael Morales MD ? Weight: 142 lb ? Performed By: Argentina Padilla, ?? RCS ?? BSA: 1.7 m2 ?BP: 128/79 mmHg ?? HR: 78 ?? Reason For Study: CHF ?? History: Respiratory Failure, COVID, NICK, COPD, Smoker, A-Fib., HTN, CHF, AAA, ?? EF 30-35% ? Interpretation Summary ?? Ejection Fraction = 30-35%. ?? Moderate concentric left ventricular hypertrophy. ?? There is moderate global hypokinesis of the left ventricle. ?? There is left ventricular diastolic dysfunction. ?? There is trace tricuspid regurgitation. ?? There is moderate mitral regurgitation. ?? Mild aortic regurgitation. ?? Dilated descending aorta 4.3cm. Consider CT chest to correlate. ? Procedure/Quality: ?? A two-dimensional transthoracic echocardiogram with color ?? flow and Doppler was performed. The study was technically good in quality. ?? Left Ventricle: ?? The left ventricular size is normal. Moderate concentric ?? left ventricular hypertrophy. Ejection Fraction = 30-35%. There is left ?? ventricular diastolic dysfunction. There is moderate global hypokinesis of the ?? left ventricle. ?? Left Atrium: ?? The left atrium appears normal in size. ?? Right Atrium: ?? The right atrium appears normal in size. ?? Right Ventricle: ?? The right ventricle is normal in size and function. ?? Aortic Valve: ?? The aortic valve is moderately calcified. No hemodynamically ?? significant valvular aortic stenosis. Mild aortic regurgitation. ?? Mitral Valve: ?? There is moderate mitral annular calcification. No significant ?? mitral valve stenosis. There is moderate mitral regurgitation. ?? Tricuspid Valve: ?? The tricuspid valve is normal in structure. There is trace ?? tricuspid regurgitation. ?? Pulmonic Valve: ?? The pulmonic valve is not well visualized. No significant ?? pulmonic regurgitation. ?? Arteries: ?? The aortic root is normal size. Dilated descending aorta 4.3cm. ?? Consider CT chest to correlate. ?? Pericardium/Pleura: ?? No pericardial effusion seen. ?? IVC/Hepatic Veins: ?? The inferior vena cava is normal in size, with a normal ?? collapsibility index. ?? Measurements with Normals ?? IVSd: 1.9 cm ?(0.7-1.1 cm)LVIDd: 5.4 cm ? (3.7-5.4 cm) ?? LVPWd: 1.4 cm ? (0.7-1.1 cm)LVIDs: 4.7 cm ? (2.3-3.6 cm) ?? LA dimension: 5.5 cm ??(2.3-4.0 cm)Ao root diam: 3.3 cm(2.0-3.6 cm) ?? asc Aorta Diam: 3.1 cm(2.1-3.4cm) ? Doppler with Normals ?? RVSP(TR): 54.4 mmHg ?? (18-35mmHg) ?? LV V1 max: 86.4 cm/sec(0.7-1.7m/s)MV E max luis felipe: 137.0 cm/sec(0.8-1.3m/s) ? MMode/2D Measurements ?? Calculations ?? TAPSE: 1.5 cm ? FS: 13.5 % ?Ao root area: ?LVOT diam: 2.2 cm ?? RV S Luis Felipe: ? EDV(Teich): ? 8.6 cm2 ?LVOT area: 3.7 cm2 ?? 14.1 cm/sec ? 144.1 ml ?ESV(Teich): ?103.0 ml ?EF(Teich): 28.5 % ? __ ? LVLd ap4: 8.2 cm ?SV(MOD-sp4): ?LAV(MOD-sp4): ?LA A2 area: 33.7 cm2 ?? EDV(MOD-sp4): ? 22.5 ml ? 91.2 ml ?? 102.0 ml ?LAV(MOD-sp2): ?LA A4 area: 26.0 cm2 ?? LVLs ap4: 7.9 cm ?143.0 ml ? LA length (vol): ?? ESV(MOD-sp4): ?6.1 cm ?? 79.5 ml ?LA vol: 122.7 ml ?? EF(MOD-sp4): 22.1 % ?LA vol index: ? 70.2 ml/m2 ? Doppler Measurements ?? Calculations ?? MV dec time: ? MV V2 max: ? E/E' lat: 8.2 ?MV dec slope: ?? 0.17 sec ? 141.7 cm/sec ? E/E' med: 19.7 ? MV max PG: ?787.7 cm/sec2 ? 127.0 mmHg ? MV V2 mean: ? 67.3 cm/sec ? MV mean P.7 mmHg ? MV V2 VTI: 23.4 cm ? MVA(VTI): 2.4 cm2 ? __ ?? Ao V2 max: ? AI max luis felipe: ?LV V1 max PG: ?MR max luis felipe: ?? 180.0 cm/sec ? 289.6 cm/sec ? 3.0 mmHg ? 563.4 cm/sec ?? Ao max PG: ? AI max P.5 mmHg LV V1 mean PG: ?? MR max PG: ?? 13.0 mmHg ?AI dec slope: ?1.3 mmHg ? 127.5 mmHg ?? Ao mean PG: ? LV V1 mean: ?? 6.7 mmHg ? 263.5 cm/sec2 ?52.5 cm/sec ?? Ao V2 mean: ?AI P1/2t: 321.9 msec LV V1 VTI: ?? 123.1 cm/sec ?15.1 cm ?? Ao V2 VTI: 30.6 cm ? MARLEN(I,D): 1.8 cm2 ?? MARLEN(V,D): 1.8 cm2 ? __ ?? TV max PG: ? TR max luis felipe: ?? 44.0 mmHg ?333.3 cm/sec ? TR max P.4 mmHg ? RAP systole: ? 10.0 mmHg ? Measurements from QLAB ?? ED Mass (HM): ? LAEF (HM): ? LAVmax (HM): ? LAVmin (HM): ?? 140.0 grams ? 3.0 % ?141.0 ml ? 136.0 ml ? QLAB Heart Model ?? EDV (HM)_phl: 259.0 ml ?EF (HM)_phl: 21.0 % ??ED Current (HM)_phl: ?? ESV (HM)_phl: 204.0 ml ?HR (HM)_phl: ? 60.0 % ?? LV Length ED (HM)_phl: ?112.0 BPM ?ES Current (HM)_phl: ?? 95.0 mm ? SV (HM)_phl: 54.0 ml 30.0 % ?? LV Length ES (HM)_phl: ? ED Default (HM)_phl: ?? 93.0 mm ?60.0 % ? ES Default (HM)_phl: ? 30.0 % ? Transcribed By: ?SCV ?? Performed At: ?07/31/25 1053 ?? Signed By: ?Juanita Mcfarland MD ?07/31/252043 Procedure Note Juanita Mcfarland MD - 07/31/2025 [facility] [place] [address] Echocardiogram Signed Patient: Ismael Andres GMR#: [id number] : 2Acct:[id number] Age/Sex: 85 / MADM Date: 07/31/25 Loc: Room:Type: [facility] Attending Dr: Ismael Morales MD Ordering Provider: Ismael Morales MD Date of Service: 07/31/25/ ECH/[facility] echo transthoracic: CHF Copies to: MD Ismael Rogers MD Weight: 142 lb Performed By: ANITHA Gorman BSA: 1.7 m2 BP: 128/79 mmHg HR: 78 Reason For Study: CHF History: Respiratory Failure, COVID, NICK, COPD, Smoker, A-Fib., HTN, CHF,AAA, EF 30-35% Interpretation Summary Ejection Fraction = 30-35%. Moderate concentric left ventricular hypertrophy. There is moderate global hypokinesis of the left ventricle. There is left ventricular diastolic dysfunction. There is trace tricuspid regurgitation. There is moderate mitral regurgitation. Mild aortic regurgitation. Dilated descending aorta 4.3cm. Consider CT chest to correlate. Procedure/Quality: A two-dimensional transthoracic echocardiogram withcolor flow and Doppler was performed. The study was technically good in quality. Left Ventricle: The left ventricular size is normal. Moderate concentric left ventricular hypertrophy. Ejection Fraction = 30-35%. There is left ventricular diastolic dysfunction. There is moderate global hypokinesis ofthe left ventricle. Left Atrium: The left atrium appears normal in size. Right Atrium: The right atrium appears normal in size. Right Ventricle: The right ventricle is normal in size and function. Aortic Valve: The aortic valve is moderately calcified. Nohemodynamically significant valvular aortic stenosis. Mild aortic regurgitation. Mitral Valve: There is moderate mitral annular calcification. Nosignificant mitral valve stenosis. There is moderate mitral regurgitation. Tricuspid Valve: The tricuspid valve is normal in structure. There istrace tricuspid regurgitation. Pulmonic Valve: The pulmonic valve is not well visualized. Nosignificant pulmonic regurgitation. Arteries: The aortic root is normal size. Dilated descending aorta4.3cm. Consider CT chest to correlate. Pericardium/Pleura: No pericardial effusion seen. IVC/Hepatic Veins: The inferior vena cava is normal in size, with anormal collapsibility index. Measurements with Normals IVSd: 1.9 cm (0.7-1.1 cm)LVIDd: 5.4 cm (3.7-5.4 cm) LVPWd: 1.4 cm (0.7-1.1 cm)LVIDs: 4.7 cm (2.3-3.6 cm) LA dimension: 5.5 cm (2.3-4.0 cm)Ao root diam: 3.3 cm(2.0-3.6 cm) asc Aorta Diam: 3.1 cm(2.1-3.4cm) Doppler with Normals RVSP(TR): 54.4 mmHg (18-35mmHg) LV V1 max: 86.4 cm/sec(0.7-1.7m/s)MV E max luis felipe: 137.0 cm/sec(0.8-1.3m/s) MMode/2D Measurements Calculations TAPSE: 1.5 cm FS: 13.5 % Ao root area: LVOT diam: 2.2 cm RV S Luis Felipe: EDV(Teich): 8.6 cm2 LVOT area: 3.7cm2 14.1 cm/sec 144.1 ml ESV(Teich): 103.0 ml EF(Teich): 28.5 % __ LVLd ap4: 8.2 cm SV(MOD-sp4): LAV(MOD-sp4): LA A2 area: 33.7cm2 EDV(MOD-sp4): 22.5 ml 91.2 ml 102.0 ml LAV(MOD-sp2): LA A4 area: 26.0cm2 LVLs ap4: 7.9 cm 143.0 ml LA length (vol): ESV(MOD-sp4): 6.1 cm 79.5 ml LA vol: 122.7 ml EF(MOD-sp4): 22.1 % LA vol index: 70.2 ml/m2 Doppler Measurements Calculations MV dec time: MV V2 max: E/E' lat: 8.2 MV dec slope: 0.17 sec 141.7 cm/sec E/E' med: 19.7 MV max P.7 cm/sec2 127.0 mmHg MV V2 mean: 67.3 cm/sec MV mean P.7 mmHg MV V2 VTI: 23.4 cm MVA(VTI): 2.4 cm2 __ Ao V2 max: AI max luis felipe: LV V1 max PG: MR max luis felipe: 180.0 cm/sec 289.6 cm/sec 3.0 mmHg 563.4 cm/sec Ao max PG: AI max P.5 mmHg LV V1 mean PG: MR max P.0 mmHg AI dec slope: 1.3 mmHg 127.5 mmHg Ao mean PG: LV V1 mean: 6.7 mmHg 263.5 cm/sec2 52.5 cm/sec Ao V2 mean: AI P1/2t: 321.9 msec LV V1 VTI: 123.1 cm/sec 15.1 cm Ao V2 VTI: 30.6 cm MARLEN(I,D): 1.8 cm2 MARLEN(V,D): 1.8 cm2 __ TV max PG: TR max luis felipe: 44.0 mmHg 333.3 cm/sec TR max P.4 mmHg RAP systole: 10.0 mmHg Measurements from QLAB ED Mass (HM): LAEF (HM): LAVmax (HM): LAVmin (HM): 140.0 grams 3.0 % 141.0 ml 136.0 ml QLAB Heart Model EDV ()_phl: 259.0 ml EF (HM)_phl: 21.0 % ED Current ()_phl: ESV ()_phl: 204.0 ml HR (HM)_phl: 60.0 % LV Length ED (HM)_phl: 112.0 BPM ES Current (HM)_phl: 95.0 mm SV (HM)_phl: 54.0 ml 30.0 % LV Length ES (HM)_phl: ED Default (HM)_phl: 93.0 mm 60.0 % ES Default (HM)_phl: 30.0 % Transcribed By: NAYELI Performed At: 07/31/251052 Signed By: Juanita Mcfarland MD 07/31/252043 Authorizing ProviderResult TypeResult StatusRobert L [facility] ECHO PROCEDURES Final Result * (ABNORMAL) N-Terminal Probnp (07/29/2025 12:43 PM EST)ComponentValueRef Range Test MethodAnalysis TimePerformed AtPathologist SignatureNT-ZOYAKB01,029(H)0 - 486 pg/mLLABCORPComment: The following cut-points have been suggested for the use of proBNP for the diagnostic evaluation of heart failure (HF) in patients with acute dyspnea: Modality ? Age ? Optimal Cut ? (years) ?Point Diagnosis (rule in HF) <50 450 pg/mL ?50 - 75 ?900 pg/mL >75 1800 pg/mL Exclusion (rule out HF) ??Age independent ? 300 pg/mL Specimen (Source)Anatomical Location / LateralityCollection Method / Volume Collection TimeReceived TimeVenous blood specimen / Ekqkvzl7507/29/2025 12:43 PM EST07/29/2025 Narrative [facility] - 08/01/2025 3:07 PM EST Performed at: [address] ??[id number] Biological Sciences Professor: Marques Gentile PhD, Phone: ??[phone] Authorizing ProviderResult TypeResult StatusRobert Jeanie Morales MDLAB BLOOD ORDERABLES Final ResultPerforming OrganizationAddressCity/State/ZIP CodePhone Number [facility] * (ABNORMAL) CBC and differential (07/29/2025 12:43 PM EST)ComponentValueRef RangeTest MethodAnalysis TimePerformed AtPathologist SignatureWBC6.53.4 - 10.8 x10E3/uLLABCORPRBC4.924.14 - 5.80 x10E6/iZEOMFDENYud41.813.0 - 17.7 g/dL RWLIMPWApm32.937.5 - 51.0 %OUINZDFUOO6891 - 97 zENEZNTCGTMT41.026.6 - 33.0 pg YHJVUVZKWJQ96.7(L)31.5 - 35.7 g/eSIQOQAXLBVH02.411.6 - 15.4 %[facility]ABCORPPlatelets 140(L)150 - 450 x10E3/iEUIVTGZYWmsjgefdavs76Ufk Estab. %CAWXXAVVhodiz70Jqh Estab. %GIECVKUKcfjrwvic5Swa Estab. %LJRTHXNDxs4Tap Estab. %KQRIVPBEyxtl2Efj Estab. %LABCORPNeutrophils Abs3.71.4 - 7.0 x10E3/uLLABCORPLymphs Abs1.90.7 - 3.1 x10E3/uLLABCORPMonocytesAbs0.50.1 - 0.9 x10E3/uLLABCORPEos Abs0.20.0 - 0.4 x10E3/uLLABCORPBaso Abs0.10.0 - 0.2 x10E3/uLLABCORPImmature Elmduyslcjtq0Wvl Estab. %LABCORPImmature Grans Abs0.00.0 - 0.1 x10E3/uLLABCORPSpecimen (Source) Anatomical Location / LateralityCollection Method / VolumeCollection Time Received TimeBloodVenous blood specimen / Qbvymck2507/29/2025 12:43 PM EST 07/29/2025 Narrative [facility] - 08/01/2025 3:07 PM EST Performed at: 01 - [address] ??[id number] Biological Sciences Professor: Marques Gentile PhD, Phone: ??[phone] Authorizing ProviderResult TypeResult StatusRobeliot Morales MDLAB BLOOD ORDERABLES Final ResultPerforming OrganizationAddressCity/State/ZIP CodePhone Number [facility] * TSH (07/29/2025 12:43 PM EST)ComponentValueRef RangeTest MethodAnalysis Time Performed AtPathologist SignatureTSH1.9000.450 - 4.500 uIU/mLLABCORPSpecimen (Source)Anatomical Location / LateralityCollection Method / VolumeCollection TimeReceived TimeBloodVenous blood specimen / Mrwjiwo3707/29/2025 12:43 PM EST 07/29/2025 Narrative [facility] - 08/01/2025 3:07 PM EST Performed at: - [address] ??[id number] Biological Sciences Professor: Marques Gentile PhD, Phone: ??[phone] Authorizing ProviderResult TypeResult Bea QURESHI BLOOD ORDERABLES Final ResultPerforming OrganizationAddressty/State/ZIP CodePhone Number [facility] * (ABNORMAL) IgE (07/29/2025 12:43 PM EST)ComponentValueRef RangeTest Method Analysis TimePerformed AtPathologist SignatureIMMUNOGLOBULIN E, MTEYP101(H)6 - 495 IU/mLLABCORPSpecimen (Source)Anatomical Location / LateralityCollection Method / VolumeCollection TimeReceived TimeBloodVenous blood specimen / Wdhgszh9507/29/2025 12:43 PM EST07/29/2025 Narrative [facility] - 08/01/2025 3:07 PM EST Performed at: - [address] ??[id number] Biological Sciences Professor: Loly Donaldson MD, Phone: ??[phone] Authorizing ProviderResult TypeResult Bea QURESHI BLOOD ORDERABLES Final ResultPerforming OrganizationAddressCity/State/[facility] HospitalPhone Number [facility] * Folate (07/29/2025 12:43 PM EST)ComponentValueRef RangeTest MethodAnalysis TimePerformed AtPathologist SignatureFolate>20.0>3.0 ng/mLLABCORPComment: A serum folate concentration of less than 3.1 ng/mL is considered to represent clinical deficiency. Specimen (Source)Anatomical Location / LateralityCollection Method / Volume Collection TimeReceived TimeBloodVenous blood specimen / Kmrqrlb2207/29/2025 12:43 PM EST07/29/2025 Narrative [facility] - 08/01/2025 3:07 PM EST Performed at: - [address] ??[id number] Biological Sciences Professor: Marques Gentile PhD, Phone: ??[phone] Authorizing ProviderResult TypeResult Bea QURESHI BLOOD ORDERABLES Final ResultPerforming OrganizationAddressCity/State/ZIP CodePhone Number [facility] * Vitamin B12 (07/29/2025 12:43 PM EST)ComponentValueRef RangeTest Method Analysis TimePerformed AtPathologist SignatureVitamin [id number] - 1,245 pg/mL [facility]PSpecimen (Source)Anatomical Location / LateralityCollection Method / VolumeCollection TimeReceived TimeBloodVenous blood specimen / Unknown 07/29/2025 12:43 PM EST07/29/2025 Narrative [facility] - 08/01/2025 3:07 PM EST Performed at: - [facility] [address], [place], [place] ??[id number] Biological Sciences Professor: Marques Gentile PhD, Phone: ??[phone] Authorizing ProviderResult TypeResult StatusRobert Jeanie QURESHI BLOOD ORDERABLES Final ResultPerforming OrganizationAddressCity/State/ZIP CodePhone Number [facility] from [place] [address] [place] [address] Care Teams Team MemberRelationshipSpecialtyStart DateEnd Ismael Morales MD [address] [place] [address] PCP - Devoted08/27/20 Ismael Morales MD [address] [place] [address] PCP - GeneralInternal Medicine01/18/23 Saúl Wiggins MD [address] [facility] [address] [place] [address] Referring PhysicianCardiology09/24/24 Harish Floyd MD [facility] [place] [address] Referring PhysicianPodiatr09/24/24 Jelly Stokes, HÉCTOR [address] [place] [address] Licensed Practical NurseFamily Medicine09/24/24 Sofía Bedolla OD Ophthalmology09/12/23
--- OUTSIDE RECORDS SUMMARY | 2025-08-17 21:00 | XMS_ITS | Encounter Summary ---
Author Organization [facility] Address [address] [facility] [place] [address] Care Team Providers Care Aquarium Specialist Name Role Phone Ismael Morales MD Unavailable [phone] Ismael Morales MD Primary Care Provider [phone] Saúl Wiggins MD Unavailable [phone] Harish Floyd MD Unavailable [phone] Jelly Stokes LPN Unavailable [phone] Encounter Details DateTypeDepartmentCare Team (Latest Contact Info)Rqzvaaxvnnt45/19/2025Telephone [facility] [place] [facility] [address] [facility] [address] [place] [phone] Miguel Land MA Social History Tobacco UseTypesPacks/DayYears UsedDateSmoking Tobacco: Every DayCigarettes Started: 1975 Comments:5-7 cigarettes a da y Alcohol UseStandard Drinks/WeekCommentsNot Currently0 (1 standard drink = 0.6 oz pure alcohol)caffeine; 6 cups of coffee per dayPHQ-2AnswerDate RecordedPatient Health Questionnaire-2 [id number] and Gender InformationValueDate RecordedSex Assigned at BirthNot on fileLegal ZrdIoxf4011/08/2022 6:34 PM EDT Gender IdentityNot on fileSexual OrientationNot on fileOccupationIndustryJob Start DateJob 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 And if he can see Pulmonary sooner that may be a good idea. 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 Patient informed of the below information documented in this encounter Plan of Treatment DateTypeDepartmentCare Team (Latest Contact Info)Lgnmiiuqwkd08/23/2026 4:00 PM ESTOffice Visit [facility] [place] [facility] [address] [place] [address] documented as of this encounter Visit Diagnoses Not on filedocumented in this encounter Care Teams Team MemberRelationshipSpecialtyStart DateEnd Ismael Morales MD [address] [facility] [address] [place] [address] PCP - Devoted08/27/20 Ismael Morales MD [address] [facility] [address] [place] [address] PCP - GeneralInternal Medicine01/18/23 Saúl Wiggins MD [address] [facility] [address], [address] [place] [address] Referring PhysicianCardiology09/24/24 Harish Floyd MD [facility] [place] [address] Referring PhysicianPodiatr09/24/24 Jelly Stokes LPN [address] [place] [address] Licensed Practical NurseFamily Medicine09/24/24 Sofía Bedolla OD Ophthalmology09/12/23documented as of this encounter
[2025-08-17 21:07] LABS: Alanine Aminotransferase 13 U/L (16-63); Albumin Globulin Ratio 0.9; Albumin Level 3.7 g/dL (3.4-5.0); Alkaline Phosphatase 99 U/L (46-116); Anion Gap 10.0; Aspartate Amino Transferase 22 U/L (15-37); Blood Urea Nitrogen 23.0 mg/dL (7.0-18.0); Calcium 9.3 mg/dL (8.5-10.1); Carbon Dioxide 32.1 mmol/L (21.0-32.0); Chloride 100 mmol/L (98-107); Estimated GFR (African America >60 (>=60 mL/min/1.73m^2); Estimated GFR (Non-African Ame >60 (>=60 mL/min/1.73m^2); Globulin 3.9 g/dL; Glucose 115 mg/dL (74-106); Potassium 4.1 mmol/L (3.5-5.1); Sodium 138 mmol/L (136-145); Total Protein 7.6 g/dL (6.4-8.2)
--- NOTE | 2025-08-17 21:27 | PC.NURSE ---
this patient awake and alert sitting upright on the bed looking at his cell phone patient says breathing mush better now. this patient voices no other concerns, needs and shows no signs of distress
[2025-08-17] MEDS: METHYLPREDNISOLONE SOD SUCC PF 125 MG/2 ML VIAL IVP (21:54)
[2025-08-17] MEDS: ACETAMINOPHEN 325 MG TABLET 650 MG PO (21:55)
[2025-08-17] MEDS: FUROSEMIDE 20 MG/2 ML VIAL IVP (21:55)
[2025-08-17] MEDS: DIPHENHYDRAMINE HCL 50 MG/ML VIAL 25 MG IVP (23:21)
[2025-08-17] MEDS: FAMOTIDINE/PF 20 MG/2 ML VIAL 40 MG IV (23:31)
[2025-08-18 00:51] VITALS: BP 131/81; PULSE 97; O2SAT 95
--- NOTE | 2025-08-18 02:38 | PC.NURSE ---
this patient standing up in the room and holding onto the urinal. i verbally instructed this patient to use the call button and not to get out of bed by himself.
--- NOTE | 2025-08-18 03:44 | PC.NURSE ---
this patient signed out AMA and is awaiting for his brother to arrive to take him home
== END 2025-08-18 03:42 | disposition left against medical advice (07) ==
PROVIDERS: Emergency Provider Emergency Medicine; PCP Internal Medicine
DX: I71.23 Aneurysm of the descending thoracic aorta, without rupture (principal); Z53.29 Procedure and treatment not carried out because of patient's decision for other reasons; I50.9 Heart failure, unspecified; J44.9 Chronic obstructive pulmonary disease, unspecified; R79.89 Other specified abnormal findings of blood chemistry; R06.02 Shortness of breath; I48.91 Unspecified atrial fibrillation; I11.0 Hypertensive heart disease with heart failure; I71.60 Thoracoabdominal aortic aneurysm, without rupture, unspecified; I21.A1 Myocardial infarction type 2; I25.2 Old myocardial infarction
CPT/HCPCS: 36415; 36600; 71045; 71275; 80053; 82805; 83605; 83880; 84484; 85025; 85378; 87040; 87804; 87811; 93005; 94640; 96374; 96375; 99284; 99285; J1200; J1938; J2919; J3490; Q9967

== ENCOUNTER 2025-08-18 16:39 | Emergency (ER) | payer OTHER, SELFPAY ==
--- OUTSIDE RECORDS SUMMARY | 2024-12-29 10:00 | XMS_ITS ---
Author Organization [facility] Address [address] [place] [address] [address] [place] [address] Care Team Providers Care Wheel Filler Name Role Phone Ismael Morales MD Primary Care Provider UnavailHarish Byrne Unavailable [phone] REASON FOR VISIT rfc Encounters Encounter Location Date Provider Diagnosis [facility] [address] [place] [address] 12/29/2024 Harish Floyd Plan Of Treatment Next Appt Details Provider Name:Harish kenee, 10/05/2025 03:30:00 PM, [address] [place] [address] [address], [address], [place], [address], Progress Notes * Ismael ACUÑA GDOB:[birth year] (85 yo M)Acc No.[id number]:12/29/2024 Patient:?Ismael Acuña :?ALEXIS MuirMDOB:1940???Age:84 Y???Sex: MaleDate:12/29/2024Phone:Address:[address] [place] [address] [place], [id number]: Ismael Morales MD Subjective: * Chief Complaints: * R fc * Electronic signature of Harish Floyd DPM on 08/18/2025 at 11:02 AM ESTSign off status: Pending * Provider: Candelario Floyd DPM Date: 0 12/29/2024 Generated for Printing/Faxing/eTransmitting on:?08/18/2025 11:02 AM EST
--- OUTSIDE RECORDS SUMMARY | 2025-08-07 09:45 | XMS_ITS | Encounter Summary ---
Author Organization [facility] Address [address] [facility] [place] [address] Care Team Providers Care Auto Collision Repair Instructor Name Role Phone Ismael Morales MD Unavailable [phone] Ismael Morales MD Primary Care Provider [phone] Saúl Wiggins MD Unavailable [phone] Harish Flody MD Unavailable [phone] Jelly Stokes LPN Unavailable [phone] Reason for Visit * ReasonCommentsHospital Follow-upPt was at [facility] 08/03-08/05 for SOB. Pt was originally at [facility], they found fluid around his lungs, they sent him to [facility] to have it drained, but they did not do that Encounter Details DateTypeDepartmentCare Team (Latest Contact Info)Qxnuewtqiba62/12/2025 9:45 AM ESTOffice Visit [facility] [address] [facility] [address] [place] [address] Tegan Melvin NP [address] [facility] [address] [place] [address] Chronic systolic congestive heart failure (HCC) (Primary Dx); PAF (paroxysmal atrial fibrillation) (HCC); Chronic obstructive pulmonary disease, unspecified COPD type (HCC); Mixed hyperlipidemia Social History Tobacco UseTypesPacks/DayYears UsedDateSmoking Tobacco: Every DayCigarettes Started: 1975 Tobacco Cessation:Ready to Q uit: Not Asked; Counseling Given: Not Answered Comments:5-7 cigarettes a day Alcohol UseStandard Drinks/WeekCommentsNot Currently0 (1 standard drink = 0.6 oz pure alcohol)caffeine; 6 cups of coffee per dayPHQ-2AnswerDate RecordedPatient Health Questionnaire-2 [id number] and Gender InformationValueDate RecordedSex Assigned at BirthNot on fileLegal TiaCfji0211/08/2022 6:34 PM EDT Gender IdentityNot on fileSexual OrientationNot on fileOccupationIndustryJob Start DateJob 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, engineerNot on fileNot on fileNot on file documented as of this encounter Last Filed Vital Signs Vital SignReadingTime TakenCommentsBlood Raeiudwc704/6808/07/2025 10:02 AM EST Dpxgj643108/07/2025 10:02 AM ESTTemperature--Respiratory Rate--Oxygen Saturation-- Inhaled Oxygen Concentration--Chylro67 kg (141 lb)08/07/2025 10:02 AM ESTHeight 170.2 cm (5' 7 )08/07/2025 10:02 AM ESTBody Mass Index22.0808/07/2025 10:02 AM ESTdocumented in this encounter Progress Notes * Tegan Melvin, AUTOMATION TECHNOLOGIST - 08/07/2025 9:45 AM EST Images from the original note were not included. Ismael Andres is a 85 y.o. male presents with chief complaint of Hospital Follow-up (Pt was at [facility] 08/03-08/05 for SOB. Pt was originally at [facility], they found fluid around his lungs, theysent him to [facility] to have it drained, but they did not do that) HPI: History of Present Illness The patient is an 85-year-old male who presents today for a hospital follow-up. He was admitted from 08/03/2025 to 08/07/2025 for shortness of breath, with a diagnosis of chronic systolic congestive heart failure and paroxysmal atrial fibrillation. He has a follow-up appointment with cardiology on 09/02/2025. Chronic Systolic Congestive Heart Failure and Paroxysmal Atrial Fibrillation He reports no significant improvement in his condition and describes his current state as chaotic, citing significant physical exertion over the past few months. He has a history of noncompliance with medications due to a lack of trust in the pharmaceutical industry, leading to past refusals of prescribed treatments. He has declined the use of baby aspirin and Jardiance, citing cost concerns for the latter. He monitors his weight daily as an indicator of fluid retention and checks his blood pressure regularly. Weight Loss Following Bowel Resection Surgery He recalls a significant weight loss following a bowel resection surgery, during which he lost 30 pounds. He has had difficulty scheduling an appointment with a hairspring vibrator, with a current wait time of 3 months. He has undergone a spirometry test approximately 10 years ago and is scheduled for another one before his upcoming pulmonology appointment. Respiratory Issues (Mild COPD, Potential Asthma or Emphysema) He reports no chest pain or leg swelling. He has been diagnosed with mild COPD and is considering the possibility of asthma or emphysema. He reports feeling better than he did during his hospital stay, attributing this to improved sleep quality since his discharge. He has noticed a decrease in crackling sounds in his lungs and an ability to take deeper breaths, which he attributes to reduced smoking. He has attempted various methods to quit smoking, including acupuncture, group and individual hypnosis, and nicotine patches, but has been unsuccessful. He has abstained from alcohol for the past45 years. His current medication regimen includes spironolactone, rosuvastatin, telmisartan, Lasix twice daily, and potassium 10 mEq daily. He takes Lasix 20 mg once daily and potassium supplements, but recentblood work indicated elevated potassium levels. He uses a nebulizer once or twice daily and takes CoQ10 twice daily. He is not taking carvedilol concurrently with metoprolol 50 mg once daily. Social History: Alcohol: He has abstained from alcohol for the past 45 years. Tobacco: He smokes cigarettes, approximately 4 to 8 per day. Coffee/Tea/Caffeine-containing Drinks: He drinks coffee. Sleep: He reports improved sleep quality since his hospital discharge. PAST SURGICAL HISTORY: - Bowel resection surgery I have reviewed and reconciled the history and medication list with the patient today. HISTORIES: PAST MEDICAL HISTORY: Medical History[1] SURGICAL HISTORY: Surgical History[2] SOCIAL HISTORY: Social History[3] Depression: Not at risk (06/18/2025) Received from [facility] PHQ-2 Patient Health Questionnaire-2 Score: 0 FAMILY HISTORY: Family History[4] MEDICATIONS: Current Outpatient Medications Medication Instructions albuterol HFA 90 mcg/act inhaler 2 puffs, Inhalation, Every 4 hours PRN coenzyme Q-10 100 MG capsule 2 capsules, Daily furosemide (LASIX) 20 mg, Oral, Daily with breakfast, As needed. Lactobacillus (Probiotic Acidophilus) capsule 1 capsule, Daily levalbuterol (XOPENEX) 1.25 mg, Nebulization, Every 6 hours PRN metoprolol succinate XL (TOPROL-XL) 50 mg, Oral, Daily, Do not crush or chew. nitroglycerin (NITROSTAT) 0.4 mg, Every 5 min PRN pantoprazole (PROTONIX) 40 mg, Oral, Daily PARoxetine (PAXIL) 30 mg, Oral, Every morning potassium chloride CR (Klor-Con M10) 10 MEQ ER tablet 10 mEq, Oral, Daily, Do not crush or chew. PreviDent 5000 Booster Plus 1.1 % paste 1 strip, Daily triamcinolone (Kenalog) 0.1 % cream Apply 1 gram daily to scaly skin on trunk and extremities for 2weeks as needed for flares of eczema ALLERGIES: Allergies[5] PHYSICAL EXAM: Visit Vitals BP 116/68 Pulse 82 Ht 5' 7 Wt 141 lb BMI 22.08 kg/m?? Smoking Status Every Day BSA 1.74 m?? BP Readings from Last 3 Encounters: 08/07/25 116/68 07/21/25 118/70 03/12/25 100/68 Wt Readings from Last 3 Encounters: 08/07/25 141 lb 07/21/25 148 lb 03/12/25 132 lb 9.6 oz Physical Exam HENT: Mouth/Throat: Mouth: Mucous membranes are moist. Cardiovascular: Rate and Rhythm: Normal rate and regular rhythm. Heart sounds: No murmur heard. No friction rub. No gallop. Pulmonary: Effort: Pulmonary effort is normal. Prolonged expiration present. Breath sounds: Wheezing present. No rhonchi. Abdominal: General: Bowel sounds are normal. Palpations: Abdomen is soft. Tenderness: There is no abdominal tenderness. Musculoskeletal: Right lower leg: No edema. Left lower leg: No edema. Skin: General: Skin is warm and dry. Neurological: Mental Status: He is alert and oriented to person, place, and time. Psychiatric: Thought Content: Thought content normal. Results Imaging - Chest x-ray: Edema Diagnostic Testing - Echocardiogram: EF to be 20% ASSESSMENT AND PLAN: Assessment & Plan 1. Chronic systolic congestive heart failure: Admitted from 08/03/2025 to 08/07/2025 for shortness of breath. Chest x-ray showed edema, and echocardiogram revealed an ejection fraction (EF) of 30%. History of noncompliance with medications due to distrust of the pharmaceutical industry. - Currently taking furosemide 20 mg once a day and potassium 10 mEq daily. CoQ10 twice a day and pantoprazole 40 mg daily. - Advised to continue monitoring weight and blood pressure daily. If significant weight gain is noticed, increase furosemide dosage to 40 mg. - K was improved on DC. He has labs ordered PTV and will call if he wishes to do sooner. 2. Paroxysmal atrial fibrillation: Follow-up with cardiology scheduled for 09/02/2025. Not taking baby aspirin or Jardiance due to cost and personal beliefs. - Currently on metoprolol 50 mg once a day and not taking carvedilol. - Advised to continue current medication regimen and follow up with cardiology as scheduled. 3. Chronic obstructive pulmonary disease (COPD): Reports mild COPD and uses Xopenex nebulizer once or twice a day as needed. - Advised to continue using the nebulizer every 6 hours as needed. - Pending appointment for pulmonary function tests, including spirometry, which needs to be completed before seeing the hairspring vibrator. 4. Hyperlipidemia: Cholesterol levels checked in 08/2024 and will be rechecked soon. - Has never agreed to take statins due to personal beliefs about cholesterol management. - Advised to continue current diet and lifestyle modifications. Follow-up: Next scheduled visit in 09/2025. [1] Past Medical History: Diagnosis Date AAA (abdominal aortic aneurysm) Asthma (HCC) Chronic back pain Chronic obstructive pulmonary disease (HCC) 06/12/2020 Chronic systolic heart failure (HCC) 12/09/2020 Coronary artery disease 01/21/2018 Depression Diverticulosis Gastroesophageal reflux disease 09/26/2020 History of diverticulitis 01/30/2024 Iliac artery aneurysm 01/24/2023 Incarcerated inguinal hernia 01/30/2024 Large hiatal hernia Lumbosacral spondylosis without myelopathy 01/03/2012 MGUS (monoclonal gammopathy of unknown significance) 12/31/2015 Mild aortic stenosis 02/16/2024 Mitral regurgitation 10/01/2019 Mixed hyperlipidemia Nicotine dependence, cigarettes, uncomplicated 01/24/2023 PAF (paroxysmal atrial fibrillation) (HCC) 09/14/2020 Perforated diverticulum of large intestine 08/31/2020 Primary osteoarthritis involving multiple joints 05/28/2015 PUD (peptic ulcer disease) 12/31/2015 Solitary pulmonary nodule 06/22/2020 Statin myopathy 10/08/2024 Tobacco abuse [2] Past Surgical History: Procedure Laterality Date ABDOMINAL AORTIC ANEURYSM REPAIR COLONOSCOPY 2007 COLONOSCOPY 2015 EGD 2014 EGD 02/27/2024 Large paraesophageal hernia EXPLORATORY LAPAROTOMY 01/06/2024 washout of hemopertioneum FLEXIBLE SIGMOIDOSCOPY 02/27/2024 sigmoid lesion / stricture HERNIA REPAIR Right 2020 right inguinal HERNIA REPAIR Right 01/04/2024 incarcerated right femoral hernia, small bowel obstruction with necrotic segment IR BILAT FEMORAL ARTERIOGRAM 2016 OTHER SURGICAL HISTORY 01/2015 acute upper gastrointestinal bleed secondary to duodenal ulcer TONSILLECTOMY 1950 [3] Social History Tobacco Use Smoking status: Every Day Types: Cigarettes Start date: 1975 Tobacco comments: 5-7 cigarettes a day Vaping Use Vaping status: Never Used Substance Use Topics Alcohol use: Not Currently Comment: caffeine; 6 cups of coffee per day Drug use: Never [4] Family History Problem Relation Name Age of Onset Cancer Mother Hyperlipidemia Mother Lung cancer Father Hypertension Father Heart disease Father [5] Allergies Allergen Reactions Iodinated Contrast Media Swelling Valsartan Other Reaction(s): Other fatigue Aspirin Other Reaction(s): Other Patient refuses he has history of ulcers Acetaminophen-Codeine Unknown Codeine Other Reaction(s): Hallucinating Lisinopril Penicillins Swelling Statins Unknown documented in this encounter Plan of Treatment DateTypeDepartmentCare Team (Latest Contact Info)Oechgrlighn57/23/2026 4:00 PM ESTOffice Visit [facility] [place] [facility] [address] [place] [address] documented as of this encounter Visit Diagnoses Diagnosis Chronic systolic congestive heart failure (HCC)- Primary PAF (paroxysmal atrial fibrillation) (HCC) Atrial fibrillation Chronic obstructive pulmonary disease, unspecified COPD type (HCC) Mixed hyperlipidemia documented in this encounter Care Teams Team MemberRelationshipSpecialtyStart DateEnd Date Ismael Morales MD [address] [place] [address] PCP - [facility]08/27/20 Ismael Morales MD [address] [place] [address] PCP - GeneralInternal Medicine01/18/23 Saúl Wiggins MD [address] [facility] [address] [place] [address] Referring PhysicianCardiology09/24/24 Harish Floyd MD [facility] [place] [address] Referring PhysicianPodiatr09/24/24 Jelly Stokes LPN [address] [place] [address] Licensed Practical NurseFamily Medicine09/24/24 Sofía Bedolla OD Ophthalmology09/12/23documented as of this encounter
[2025-08-18] VITALS (27 sets, daily range): BP systolic 119–164; BP diastolic 53–113; PULSE 95–138; TEMP 36.9; O2SAT 88–98; BMI 20.7
--- NOTE | 2025-08-18 17:15 | ECG_ITS ---
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 Measurements Intervals [place] Rate: 112 P: -62638 AL: -85118 QRS: -70 QRSD: 148 T: 85 QT: 358 QTc: 425 Interpretive Statements Atrial flutter with variable AV conduction 2450 Right bundle branch block 2630 Left anterior fascicular block [address] depression, possible subendocardial injury or digitalis effect 82697 Twave abnormality, possible lateral ischemia or digitalis effect 7300 Indeterminate axis 9150 abnormal ECG Compared to ECG 08/17/2025 20:06:49 Left anterior fascicular block now present Indeterminate axis now present ST (T wave) deviation still present Electronically Signed On 08-19-2025 11:42:54 EST by ALISSA MARR M.D.
--- OUTSIDE RECORDS SUMMARY | 2025-08-18 17:41 | XMS_ITS | Encounter Summary ---
Author Organization [facility] Address [address] [facility] [place] [address] Care Team Providers Care Last Model Maker Name Role Phone Ismael Morales MD Unavailable [phone] Ismael Morales MD Primary Care Provider [phone] Saúl Wiggins MD Unavailable [phone] Harish Floyd MD Unavailable [phone] Jelly Stokes LPN Unavailable [phone] Reason for Visit * ReasonCommentsMed Refill Encounter Details DateTypeDepartmentCare Team (Latest Contact Info)Fwzjmhoxneu75/17/2025Refill [facility] [address] [place] [address] Ismael Morales MD [address] [facility] [address] [place] [address] Chronic obstructive pulmonary disease, unspecified COPD type (HCC) Social History Tobacco UseTypesPacks/DayYears UsedDateSmoking Tobacco: Every DayCigarettes Started: 1975 Comments:5-7 cigarettes a da y Alcohol UseStandard Drinks/WeekCommentsNot Currently0 (1 standard drink = 0.6 oz pure alcohol)caffeine; 6 cups of coffee per dayPHQ-2AnswerDate RecordedPatient Health Questionnaire-2 [id number] and Gender InformationValueDate RecordedSex Assigned at BirthNot on fileLegal JllMswl3711/08/2022 6:34 PM EDT Gender IdentityNot on fileSexual OrientationNot on fileOccupationIndustryJob Start DateJob 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, 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 on fileNot on fileNot on file documented as of this encounter Plan of Treatment DateTypeDepartmentCare Team (Latest Contact Info)Byohwpufzze98/23/2026 4:00 PM ESTOffice Visit [facility] [place] [facility] [address] [place] [address] documented as of this encounter Visit Diagnoses Diagnosis Chronic obstructive pulmonary disease, unspecified COPD type (HCC) documented in this encounter Care Teams Team MemberRelationshipSpecialtyStart DateEnd Date Ismael Morales MD [address] [place] [address] PCP - Devoted08/27/20 Ismael Morales MD [address] [place] [address] PCP - GeneralInternal Medicine01/18/23 Saúl Wiggins MD [address] [facility] [address] [place] [address] Referring PhysicianCardiology09/24/24 Harish Floyd MD [facility] [place] [address] Referring PhysicianPodiatr09/24/24 Jelly Stokes LPN [address] [place] [address] Licensed Practical NurseFamily Medicine09/24/24 Sofía Bedolla OD Ophthalmology09/12/23documented as of this encounter
--- OUTSIDE RECORDS SUMMARY | 2025-08-18 17:41 | XMS_ITS | Clinical Summary ---
Author Organization [facility] Address [address] [place] [address] Care Team Providers Care Home Support Worker Name Role Phone Ismael Morales MD Unavailable [phone] Ismael Morales MD Primary Care Provider Saúl Wiggins MD Unavailable Harish Floyd MD Unavailable [phone] Jelly Stokes LPN Unavailable Allergies Active AllergyReactionsCriticalityNoted DateCommentsAcetaminophen-CodeineUnknown Low4586Evaomsm85/02/2025 Other Reaction(s): Other Patient refuses he has history of ulcers UepisngGfy19/10/2024 Other Reaction(s): Hallucinating Iodinated Contrast VyzfqCcgapnhmAnzh60/02/6208GjhkwmpffdIbn62/28/2024Penicillins WgukljqqApn63/02/7112NwfkenzTesraeyGdg08/31/6313HtswevftwRhlqsr04/02/2025 Other Reaction(s): Other fatigue Medications MedicationSigDispense QuantityRefillsLast [...] 2 weeks as needed for flares of qpqzfw215Active pantoprazole (ProtoNix) 40 MG EC tablet Indications:Gastro-esophageal [...] for wheezing 18 g Discontinued(Reorder) nystatin (Mycostatin) 287977 UNIT/ML suspension Indications:ThrushTake 5 mL (500,000 Units) [...] or chew.Discontinued Active Problems ProblemNoted DateDiagnosed DateGeneralized /06/2025Statin intolerance 12/26/20249048Weuartcapqhsgska82/12/2025Statin fztxfaal76/12/2025Major depressive disorder, recurrent, cerhmilj35/12/2025Mild aortic jlzymapp72/22/2024History of xocueoyrtsitnl40/05/2024Iliac artery jgxopxle64/31/2023Nicotine dependence, cigarettes, xzehwabiadzsp60/31/2023hronic systolic congestive heart failure 12/09/2020Obstructive sleep apnea ftnzwgny80/15/2021Gastroesophageal reflux bmrqyeb2309/26/2020AF (paroxysmal atrial fibrillation)09/14/2020olitary pulmonary wnifii7006/22/2020Chronic obstructive pulmonary qrmiras3706/12/2020Mitral ilbprwgzvjtgt39/05/2020Coronary artery xlnvasm7001/21/2018MGUS (monoclonal gammopathy of unknown significance)12/31/2015PUD (peptic ulcer disease) 12/31/2015Abdominal aortic aneurysm without vtfrsis8705/28/2015Mixed agxydstqovecuu73/02/2015Primary osteoarthritis involving multiple joints 05/28/2015Lumbosacral spondylosis without wljqqxydkg81/09/2012 Resolved Problems ProblemNoted DateDiagnosed DateResolved DateAcute respiratory failure with pqpbvos64/cute czhtpxfpqoxl69omplete obstruction of small lxcteitwg44Incarcerated inguinal hernia /ecurrent right inguinal syzvwv17/sthma ongenital anomaly of heart ([facility]) Ikvutoguaoytyq72Increased frequency of slrefjqet08/31/2023 09/14/2023Memory lossNocturiaEmphysema, ycjrsfjefmc36iverticulitis of colon Pdbslxjemdyioa50Hydrouretererforated diverticulum of large xrsyflvko18Meralgia paresthetica Ischemic gfecwxsdfqgncq97epression iverticular disease of colonTobacco dependence aouwuofw22Lumbago Encounters DateTypeDepartmentCare NviePtgeugeolio98/23/2025Patient Outreach [facility] [address] [place] [address] Jelly Stokes LPN 08/18/2025Orders Only [facility] [address] [place] [address] Unallocated, Noms MD Flakito 08/17/2025Patient Outreach [facility] [address] [place] [address] Jelly Stokes LPN 08/14/2025Telephone [facility] [address] [place] [address] [place], [place] 08/12/2025Refill [facility] [address] [place] [address] Ismael Morales MD Chronic obstructive pulmonary disease, unspecified COPD type (HCC)08/07/2025 9:45 AM ESTOffice Visit [facility] [address] [place] [address] Tegan Melvin, COMMUNICATION TECHNICIAN Chronic systolic congestive heart failure (HCC) (Primary Dx); PAF (paroxysmal atrial fibrillation) (HCC); Chronic obstructive pulmonary disease, unspecified COPD type (HCC); Mixed lkdwlnwoafzlkv84/12/2025Orders Only [facility] [address] [place] [address] Unallocated, José Luis Fraga MD 08/07/20256016Zxppig54/08/2025Results Follow-Up [facility] [address] [place] [address] Ismael Morales MD N-Terminal Probnp, IgE, CBC and differential, Additional followed-up results: 4 07/31/2025External Result Encounter [facility] Unsolicited Ismael Morales MD 07/27/2025Patient Outreach [facility] [address] [place] [address] Jelly Stokes LPN 07/21/2025 2:00 PM ESTOffice Visit [facility] [address] [place] [address] Ismael Morales MD Chronic obstructive pulmonary disease, unspecified COPD type (HCC) (Primary Dx); Chronic systolic congestive heart failure (HCC); Asthma, unspecified asthma severity, unspecified whether complicated, unspecified whether persistent (HCC); SOB (shortness of breath)07/21/20253368Ibpqox81/12/2025Patient Outreach [place] [address] [place] [address] Jelly Stokes LPN 07/08/2025Telephone [facility] [address] [place] [address] Jelly Stokes LPN 06/24/2025Refill [facility] [address] [place] [address] Ismael Morales MD Depression, unspecified depression type; Chronic systolic congestive heart failure (HCC)06/09/2025Refill [place] [address] [place] [address] Jelly Stokes LPN Chronic obstructive pulmonary disease, unspecified COPD type (HCC)05/29/2025 Refill [facility] [address] [place] [address] Angela Gupta LPN Chronic systolic congestive heart failure (HCC)from Last 3 Months Immunizations ImmunizationAdministration DatesNext DueInfluenza Whole12/22/2002Influenza, High Dose Seasonal, Preservative Free06/18/2024,07/31/2022,05/23/2021,06/28/2017, 06/26/2016,05/20/2014Influenza, High-dose Seasonal, Quadrivalent, Preservative Free05/21/2023Influenza, Gphpjnoalkg30/01/2021,05/27/2020Influenza, seasonal, injectable, preservative free06/01/2015Influenza, seasonal, intradermal, preservative free05/02/2021,05/07/2013Influenza, trivalent, fpnhcgobye46/02/2020 ,05/06/2019,07/02/2018Moderna SARS-CoV-2 Ssracycizfg51/09/2021,12/02/2020, 11/05/2020,1Pneumococcal Conjugate PCV 131Pneumococcal Polysaccharide ZQSE7507RSV, recombinant, protein subunit RSVpreF, adjuvant reconstitu, 120mcg/0.5mL, [...] of coffee per dayPHQ-2AnswerDate RecordedPatient Health Questionnaire-2 Scrhf836Sex and Gender InformationValueDate RecordedSex Assigned at BirthNot on fileLegal ZfnHzxy1711/08/2022 6:34 PM EDT Gender IdentityNot on fileSexual OrientationNot on fileOccupationIndustryJob Start DateJob 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, engineerNot on fileNot on fileNot on file Last Filed Vital Signs Vital SignReadingTime TakenCommentsBlood Ztzketij821/6808/07/2025 10:02 AM EST Dmnru706208/07/2025 10:02 AM ZDZVpubexcbgpz41.4 ??C (97.5 ??F)01/30/2024 9:42 AM EDTRespiratory Lwts871503/18/2024 2:25 PM EDTOxygen Frmtueyhfk82%07/21/2025 1:54 PM ESTInhaled Oxygen Concentration--Coobbw25 kg (141 lb)08/07/2025 10:02 AM EST Uauxsq262.2 cm (5' 7 )08/07/2025 10:02 AM ESTBody Mass Index22.0808/07/2025 10:02 AM EST Plan of Treatment DateTypeDepartmentCare Team (Latest Contact Info)Zycejfejoyd96/23/2026 4:00 PM ESTOffice Visit [facility] [address] [place] [address] Health MaintenanceDue DateLast DoneCommentsPneumococcal Vaccine: 65+ Years Dflgvaaci87/06/2015, 05/31/2009Influenza EonljajHhezrejul32/05/2025, 06/18/2024, 05/21/2023, Additional history exists Procedures Procedure NamePriorityDate/TimeAssociated DiagnosisCommentsXR CHEST 1 VIEW Ilactfk5608/17/2025 8:32 AM ESTCBC WITH AUTO PVJXIPDAIHOBXgmalyr45/09/2025 1:59 PM ESTBASIC METABOLIC YXKCNNbmgsnm18/09/2025 1:59 PM ESTB-TYPE NATRIURETIC PEPTIDE Tyhsdgj1108/04/2025 1:59 PM ESTTROPONIN T, HIGH MCXFYPDJHRFVqbizzz08/09/2025 1:59 PM ESTB-TYPE NATRIURETIC AEFJGQOBuupxzq90/08/2025 1:58 PM ESTPROTHROMBIN TIME-PGDTmhproo09/08/2025 1:58 PM ESTCOMPREHENSIVE METABOLIC PANELRoutine 08/03/2025 1:58 PM VSOPNGQYAMVYDjmkeoj21/08/2025 1:58 PM ESTTROPONIN T, HIGH BYANKIDIMEUNwudldc36/08/2025 1:58 PM ESTCBC WITH AUTO DIFFERENTIALRoutine 08/03/2025 1:58 PM ESTTRANSTHORACIC ECHO (TTE) JMIGJXJI54/05/2025 10:53 AM EST FOLATE, OELBHKwnabgy25/03/2025 12:43 PM EST Chronic obstructive pulmonary disease, unspecified COPD type (HCC) Chronic systolic congestive heart failure (HCC) Asthma, unspecified asthma severity, unspecified whether complicated, unspecified whether persistent (HCC) VITAMIN S62Xhorvpr83/03/2025 12:43 PM EST Chronic obstructive pulmonary disease, unspecified COPD type (HCC) Chronic systolic congestive heart failure (HCC) Asthma, unspecified asthma severity, unspecified whether complicated, unspecified whether persistent (HCC) AQHRpkkbvb41/03/2025 12:43 PM EST Chronic obstructive pulmonary disease, unspecified COPD type (HCC) Chronic systolic congestive heart failure (HCC) Asthma, unspecified asthma severity, unspecified whether complicated, unspecified whether persistent (HCC) COMPREHENSIVE METABOLIC MLEBBHigeefm22/03/2025 12:43 PM EST Chronic obstructive pulmonary disease, unspecified COPD type (HCC) Chronic systolic congestive heart failure (HCC) Asthma, unspecified asthma severity, unspecified whether complicated, unspecified whether persistent (HCC) CBC (INCLUDES DIFF/PLT)Efrdgvo1107/29/2025 12:43 PM EST Chronic obstructive pulmonary disease, unspecified COPD type (HCC) Chronic systolic congestive heart failure (HCC) Asthma, unspecified asthma severity, unspecified whether complicated, unspecified whether persistent (HCC) IMMUNOGLOBULIN LLvhwevq21/03/2025 12:43 PM EST Chronic obstructive pulmonary disease, unspecified COPD type (HCC) Chronic systolic congestive heart failure (HCC) Asthma, unspecified asthma severity, unspecified whether complicated, unspecified whether persistent (HCC) N-TERMINAL ABSMIVHnljuzx98/03/2025 12:43 PM EST Chronic obstructive pulmonary disease, unspecified COPD type (HCC) Chronic systolic congestive heart failure (HCC) Asthma, unspecified asthma severity, unspecified whether complicated, unspecified whether persistent (HCC) from Last 3 Months Results * XR chest 1 view (08/17/2025 8:32 AM EST)Anatomical RegionLateralityModality ChestRadiographic Imaging Narrative Authorizing ProviderResult TypeResult StatusNoms Provider Unallocated MDIMG XR PROCEDURESFinal Result * TROPONIN T, HIGH SENSITIVITY (08/04/2025 [...] AM EST Narrative 07/31/2025 8:45 PM EST [facility] [place] ?[address] ? [place] [address] ? Echocardiogram ? Signed ? Patient: Ismael Andres ?MR#: [id number] ?? [id number] ? : 1940 ?Acct:[id number] ? Age/Sex: 85 / M ?ADM Date: 07/31/25 ? Loc: EL ?Room: ?Type: REG CLI ?? Attending Dr: Ismael Morales MD ? Ordering Provider: Ismael Morales MD ?? Date of Service: 07/31/25/ ?? [facility] echo transthoracic: CHF ? Copies to: Juanita [...] ? Transcribed By: ?SCV ?? Performed At: ?07/31/253 ?? Signed By: ?Juanita Mcfarland MD ?07/31/252043 Procedure Note Juanita Mcfarland MD - 07/31/2025 [facility] [place] [address] [place] [address] Echocardiogram Signed Patient: Ismael Andres GMR#: [id number] : 2Acct:[id number] Age/Sex: 85 / MADM Date: 07/31/25 Loc: Room:Type: [facility] Attending Dr: Ismael Morales MD Ordering Provider: Ismael Morales MD Date of Service: 07/31/25/ E[facility]/ECH echo transthoracic: CHF Copies to: MD Ismael [...] Measurements from QLAB ED Mass (HM): LAEF (): LAVmax (): LAVmin (): 140.0 grams 3.0 % 141.0 ml 136.0 ml QLAB Heart Model EDV ()_phl: 259.0 ml EF ()_phl: 21.0 % ED Current ()_phl: ESV ()_phl: 204.0 ml HR ()_phl: 60.0 % LV Length ED ()_phl: 112.0 BPM ES Current ()_phl: 95.0 mm SV ()_phl: 54.0 ml 30.0 % LV Length ES ()_phl: ED Default ()_phl: 93.0 mm 60.0 % ES Default ()_phl: 30.0 % Transcribed By: NAYELI Performed At: 07/31/25 105 Signed By: Juanita Mcfarland MD 07/31/252043 Authorizing ProviderResult TypeResult StatusRobert Jeanie [facility] PROCEDURES Final Result * (ABNORMAL) N-Terminal Probnp (07/29/2025 12:43 PM EST)ComponentValueRef Range Test MethodAnalysis TimePerformed AtPathologist SignatureNT-HUIJKU17,029(H)0 - 486 pg/mLLABCORPComment: The following cut-points have [...] Volume Collection TimeReceived TimeVenous blood specimen / Doeelxc5507/29/2025 12:43 PM EST07/29/2025 Narrative [facility] - 08/01/2025 3:07 PM EST Performed at: [address] ??[id number] Supervisor Cab: Marques Gentile PhD, Phone: ??[phone] Authorizing ProviderResult TypeResult StatusRobert Jeanie QURESHI BLOOD ORDERABLES Final ResultPerforming OrganizationAddressCity/State/ZIP CodePhone Number [facility] * (ABNORMAL) CBC and differential (07/29/2025 12:43 PM EST)ComponentValueRef RangeTest MethodAnalysis TimePerformed AtPathologist SignatureWBC6.53.4 - 10.8 x10E3/uLLABCORPRBC4.924.14 - 5.80 x10E6/dXDYIGEWFTvi91.813.0 - 17.7 g/dL DDFBNVOUis76.937.5 - 51.0 %DHXEYYFIDV1968 - 97 hHBVSEKZEPPW17.026.6 - 33.0 pg BSNBRSKFPLC92.7(L)31.5 - 35.7 g/sTMRZTEACWFA84.411.6 - 15.4 %LABCORPPlatelets 140(L)150 - 450 x10E3/oGOBFJEBIDigonimmoyw76Iax Estab. %UOARCFLPgpqci44Ryy Estab. %CRTRABDYyanqqhhs9Nju Estab. %BTOMAEVYfx6Wkg Estab. %FURMKABGegsq8Cyj Estab. %[facility]ABCORPNeutrophils Abs3.71.4 - 7.0 x10E3/uLLABCORPLymphs Abs1.90.7 - 3.1 x10E3/uLLABCORPMonocytesAbs0.50.1 - 0.9 x10E3/uLLABCORPEos Abs0.20.0 - 0.4 x10E3/uLLABCORPBaso Abs0.10.0 - 0.2 x10E3/uLLABCORPImmature Nylpcluvkjgh5Qcl Estab. %LABCORPImmature Grans Abs0.00.0 - 0.1 x10E3/uLLABCORPSpecimen (Source) Anatomical Location / LateralityCollection Method / VolumeCollection Time Received TimeBloodVenous blood specimen / Pnxuhei9907/29/2025 12:43 PM EST 07/29/2025 Narrative [facility] - 08/01/2025 3:07 PM EST Performed at: [address] ??[id number] Supervisor Cab: Marques Gentile PhD, Phone: ??[phone] Authorizing ProviderResult TypeResult Bea QURESHI BLOOD ORDERABLES Final ResultPerforming OrganizationAddressty/State/ZIP CodePhone Number [facility] * TSH (07/29/2025 12:43 PM EST)ComponentValueRef RangeTest MethodAnalysis Time Performed AtPathologist SignatureTSH1.9000.450 - 4.500 uIU/mLLABCORPSpecimen (Source)Anatomical Location / LateralityCollection Method / VolumeCollection TimeReceived TimeBloodVenous blood specimen / Jomntkz4207/29/2025 12:43 PM EST 07/29/2025 Narrative [facility] - 08/01/2025 3:07 PM EST Performed at: - [address] ??[id number] Supervisor Cab: Marques Gentile PhD, Phone: ??[phone] Authorizing ProviderResult TypeResult StatusIsmael QURESHI BLOOD ORDERABLES Final ResultPerforming OrganizationAddressCity/State/ZIP CodePhone Number [facility] * (ABNORMAL) IgE (07/29/2025 12:43 PM EST)ComponentValueRef RangeTest Method Analysis TimePerformed AtPathologist SignatureIMMUNOGLOBULIN E, ZCEXM008(H)6 - 495 IU/mLLABCORPSpecimen (Source)Anatomical Location / LateralityCollection Method / VolumeCollection TimeReceived TimeBloodVenous blood specimen / Vdishpo7507/29/2025 12:43 PM EST07/29/2025 Narrative [facility] - 08/01/2025 3:07 PM EST Performed at: 02 - [address] ??[id number] Supervisor Cab: Loly Donaldson MD, Phone: ??[phone] Authorizing ProviderResult TypeResult Bea QURESHI BLOOD ORDERABLES Final ResultPerforming OrganizationAddressCity/State/ZIP CodePhone Number [facility] * Folate (07/29/2025 12:43 PM EST)ComponentValueRef RangeTest MethodAnalysis TimePerformed AtPathologist SignatureFolate>20.0>3.0 ng/mLLABCORPComment: A serum folate concentration of less than 3.1 ng/mL is considered to represent clinical deficiency. Specimen (Source)Anatomical Location / LateralityCollection Method / Volume Collection TimeReceived TimeBloodVenous blood specimen / Mhctdzm8207/29/2025 12:43 PM EST07/29/2025 Narrative [facility] - 08/01/2025 3:07 PM EST Performed at: [facility] [address] ??[id number] Supervisor Cab: Marques Gentile PhD, Phone: ??[phone] Authorizing ProviderResult TypeResult StatusIsmael QURESHI BLOOD ORDERABLES Final ResultPerforming OrganizationAddressCity/State/ZIP CodePhone Number [facility] * Vitamin B12 (07/29/2025 12:43 PM EST)ComponentValueRef RangeTest Method Analysis TimePerformed AtPathologist SignatureVitamin [id number] - 1,245 pg/mL [facility]PSpecimen (Source)Anatomical Location / LateralityCollection Method / VolumeCollection TimeReceived TimeBloodVenous blood specimen / Unknown 07/29/2025 12:43 PM EST07/29/2025 Narrative [facility] - 08/01/2025 3:07 PM EST Performed at: - [address] ??[id number] Supervisor Cab: Marques Gentile PhD, Phone: ??[phone] Authorizing ProviderResult TypeResult Bea QURESHI BLOOD ORDERABLES Final ResultPerforming OrganizationAddressCity/State/ZIP CodePhone Number [facility] from Last 3 Months Insurance Care Teams Team MemberRelationshipSpecialtyStart DateEnd Ismael Morales MD [address] [place] [address] PCP - Devoted08/27/20 Ismael Morales MD [address] [place] [address] PCP - GeneralInternal Medicine01/18/23 Saúl Wiggins MD [address] [facility] [place] [address] Referring PhysicianCardiology09/24/24 Harish [place] MD [facility] [place] [address] Referring PhysicianPodiatr09/24/24 Jelly Stokes LPN [address] [place] [address] Licensed Practical NurseFamily Medicine09/24/24 Sofía Bedolla OD Ophthalmology09/12/23
--- OUTSIDE RECORDS SUMMARY | 2025-08-18 17:41 | XMS_ITS | Clinical Summary ---
Author Organization [facility] Address [address] [place] [address] Care Team Providers Care Call Center Nurse Name Role Phone Unavailable Primary Care Provider Unavailabl e Allergies Active AllergyReactionsCriticalityNoted DateCommentsIodinated Contrast Media Anaphylaxis,GafotdbtTtiw42/02/2012 MhhstcqehnMiuanQfbn38/28/2024 Mental Disturbances PenicillinsOther,IuilqhzeRvj08/02/2012 Medications MedicationSigDispense QuantityRefillsLast FilledStart DateEnd DateStatus carvedilol [...] 5Active Active Problems ProblemNoted DateDiagnosed DateParoxysmal atrial xpjodzdoixna98/21/2024hronic kidney disease (CKD) stage G3b/A1, moderately decreased glomerular filtration rate (GFR) between 30-44 mL/min/1.73 square meter and albuminuria creatinine ratio less than 30 mg/g002/15/2024Nicotine dependence, cigarettes, uncomplicated 01/24/2023Obstructive sleep apnea iqtyzlps27/15/3790Pzmyogxlta22/06/2016Mixed xhedwcdgnianza27/02/2015 Encounters DateTypeDepartmentCare LntmWnlyknsybcu08/05/2025Orders Only [facility] Pulmonary [address] [place] [address] [place] [address] Kasey Parrish MA SOB (shortness of breath) (Primary Dx); Centrilobular emphysema (CMS/HCC); Asthma-COPD overlap syndrome (CMS/HCC)06/26/2025 12:05 AM EDT - 06/26/2025 11:59 PM EDTHospital Encounter [facility] Radiology External Films [address] [facility] [place] [address] Discharge Disposition: Home or Self Care ()06/26/2025 - 06/26/2025 12:04 AM EDTHospital Encounter [facility] Radiology External Films [address] [place] [address] Discharge Disposition: Home or Self Care ()06/18/2025 4:00 PM EDTConsult [facility] Pulmonary [address] [place] [address] [place] [address] Oneil Funes MD Centrilobular emphysema (CMS/HCC) (Primary Dx); Asthma-COPD overlap syndrome (CMS/HCC); Simple chronic bronchitis (CMS/HCC); Current smokerfrom Last 3 Months Family History Medical HistoryRelationNameCommentsAsbestosisFatherLung cancerFatherAsbestosis MotherLung cancerMotherRelationNameStatusCommentsFatherMother Social History Tobacco UseTypesPacks/DayYears UsedDateSmoking Tobacco: Every AdkMxzrhxjbes738 Started: 1976Passive Smoke Exposure: PastSmokeless Tobacco: Never [...] and Gender InformationValueDate Recorded Sex Assigned at TdtfiNuxy94/23/2025 3:28 PM EDTLegal ZurAzej8402/23/2022 12:32 AM EDTGender CbjuixdcDpxr67/23/2025 3:28 PM EDTSexual OrientationChoose not to rmopdweo37/23/2025 3:28 PM EDT Last Filed Vital Signs Vital SignReadingTime TakenCommentsBlood Bjyijtow250/421 4:00 PM EDT Yozop675506/18/2025 4:00 PM EDTTemperature--Respiratory Qhad4227 1:33 PM EDTOxygen Kfedxciaqm20%06/18/2025 4:00 PM EDTroom air at restInhaled Oxygen Concentration--Ngdero52.5 kg (140 lb)06/18/2025 4:00 PM PYOXwahdl169.3 cm (5' 9 )06/18/2025 4:00 PM EDTBody Mass Index20.6706/18/2025 4:00 PM EDT Plan of Treatment DateTypeDepartmentCare Team (Latest Contact Info)Oigmlwgiszs10/23/2026 2:30 PM EDTOffice Visit [facility] [address] [place] [address] [place] [address] Oneil Funes MD [address] [facility] [place] [address] Health MaintenanceDue DateLast DoneCommentsMedicare Annual Wellness (AWV) 1940Zoster Vaccines (1 of 2), 10/27/2010dult Tetanus COVID-19 Vaccine ( season), 12/03/2020, 11/05/2020Influenza Vaccine (#1)/, 05/21/2023, 07/31/2022, Additional history existsDepression Hlcpzpovv64 Fall Risk Ajmqbpceo78Pneumococcal Vaccine: 50+ YearsCompleted 06/01/2015, 05/31/2009HIB VaccinesAged OutNo [...] Procedures Procedure NamePriorityDate/TimeAssociated DiagnosisCommentsXR TRANSFER OF OUTSIDE IRVPOYuihhzl13/31/2025 12:[address] TRANSFER OF OUTSIDE TLSUPAaqjhiu79/31/2025 12:00 AM EDT from Last 3 Months [...]
--- OUTSIDE RECORDS SUMMARY | 2025-08-18 17:41 | XMS_ITS | Clinical Summary ---
Author Organization [facility] Address [address] [place] [address] Phone Care Team Providers Care Supervisor Dairy San[employer] Name Role Phone Ismael Morales MD Primary Care Provider [phone] Allergies Active AllergyReactionsCriticalityNoted XhmyGwgxugjfKgmgyjeGehpu03/02/2025 Patient refuses he has history of ulcers UfsejvfMvlpsvnczuoosd62/10/2024 Other Reaction(s): Hallucinating Iodinated Contrast MediaAnaphylaxis,Unknown,JhangvmkFywv71/02/2012Lisinopril Other01/22/2024enicillinsUnknown,TdjnswooOwr51/02/0092Grewvee-Yyp-Uqg Reductase HkpukgrnhoVhtjycaCvgyca62/28/5118MjxaaokokYpvaiMmfhoj27/02/2025 fatigue Medications MedicationSigDispense QuantityRefillsLast FilledStart DateEnd DateStatus [...] (30 mg) early in the morning..08/05/2024ctive coenzyme R96-cttvgwv E 100-5 mg-unit capsule Take 2 capsules [...] or split.Active Active Problems ProblemNoted DateDiagnosed DateStatin ztchfnyxwuw21/02/2025Hx of endovascular stent graft for abdominal aortic yheglqri69/28/2024Mild aortic stenosis 02/22/2024AD (coronary artery disease)02/22/2024History of PTCA02/22/2024 Paroxysmal atrial dsuqursjdits28/28/2024ardiomyopathy, hzrkrkef05/28/2024 Current rbdomj3802/22/2024ody mass index (BMI) 19.9 or less, adult02/22/2024reop cardiovascular exam02/22/2024bnormal EKG002/22/2024 Resolved Problems ProblemNoted DateDiagnosed DateResolved DateHigh risk medication use02/22/2024 12/26/2024 Encounters DateTypeDepartmentCare OkbbMihtobpaest21/09/2025Scanned Document [facility] [address] [place] [place] [address] Scanning, Generic Provider from Last 3 Months Immunizations ImmunizationAdministration DatesNext DueFlu vaccine (IIV4), preservative free *Check age/dose*06/28/2017Flu vaccine, quadrivalent, high-dose, preservative free, age 65y+ (FLUZONE)05/21/2023Flu vaccine, trivalent, preservative free, HIGH-DOSE, age 65y+ (Fluzone)06/18/2024,07/31/2022,05/23/2021,06/26/2016, 05/20/2014Flu vaccine, trivalent, preservative free, age 6 months and greater (Fluarix/Fluzone/Flulaval)06/01/2015Influenza Whole12/22/2002Influenza, Eukdwdllwgw24/01/2021,05/27/2020Influenza, seasonal, intradermal, preservative free05/07/2013Influenza, trivalent, /02/2020,05/06/2019,07/02/2018 Pneumococcal conjugate vaccine, 13-valent (PREVNAR 13)06/01/2015Pneumococcal polysaccharide vaccine, 23-valent, age 2 years and older (PNEUMOVAX 23) 05/31/2009RSV, 60 Years And Older (AREXVY)05/21/2023Td (adult), unspecified 12/22/2002 Social History Tobacco UseTypesPacks/DayYears UsedDateSmoking Tobacco: Every DayCigarettes Smokeless Tobacco: Never Tobacco Cessation:Counseling Given: Yes Alcohol UseStandard Drinks/WeekCommentsNever0 (1 standard drink = 0.6 oz pure alcohol)Sex and Gender InformationValueDate RecordedSex Assigned at BirthNot on fileLegal VpbCxrc54/25/2022 7:18 PM ESTGender IdentityNot on fileSexual OrientationNot on file Last Filed Vital Signs Vital SignReadingTime TakenCommentsBlood Zzngxdiw340/7805 2:20 PM EDT Bxxbm710812/26/2024 1:54 PM ESYUhlactirtll57.6 ??C (97.8 ??F)11/16/2020 1:06 PM EDTRespiratory Rate--Oxygen Saturation--Inhaled Oxygen Concentration--Ysbrka71.2 kg (135 lb)12/26/2024 1:54 PM ENVSsyhzj522.3 cm (5' 9 )12/26/2024 1:54 PM EDT Body Mass Index19.9412/26/2024 1:54 PM EDT Plan of Treatment DateTypeDepartmentCare Team (Latest Contact Info)Tbuczwtyfzh75/07/2026 2:30 PM ESTOffice Visit at [facility] [address] [address] Saúl Wiggins MD [address] [facility] [address] [place] [address] Health MaintenanceDue DateLast DoneCommentsLipid Panel1942Medicare Annual Wellness Visit (AWV)2CKD: Urine Protein Xhyiwyppi28/28/1961Zoster Vaccines (1 of 2)1DTaP/Tdap/Td Vaccines (1 - Tdap) Creatinine Level, 05/05/2018, 05/04/2018, Additional history existsDiabetes Umqfeppos70, 05/05/2018, 05/04/2018, Additional history existsPotassium Level, 05/05/2018, 05/04/2018, Additional history existsInfluenza Vaccine (#1)/, 05/21/2023, 07/31/2022, Additional history existsCOVID-19 Vaccine ( season) /, 12/03/2020, 11/05/20200310Gvteuntfgzkqak45/11/202607/11/2025, 07/03/2024, 01/06/2024, Additional history existsPneumococcal VaccineCompleted 06/01/2015, 05/31/2009RSV High Risk: (Elderly (60+) or Population) Chlxurlkw46/25/2023HIB VaccinesAged OutNo longer eligible based on patient's [...] Procedures Procedure NamePriorityDate/TimeAssociated DiagnosisCommentsECHOCARDIOGRAM 03/06/2025 RENAL FUNCTION GHDOCXudaafi40/10/2018 6:45 AM EDT from Last 3 Months or Most Recently Relevant to Health Maintenance Results * Echocardiogram (03/06/2025) Narrative 03/06/2025 Ordered by an unspecified provider. Authorizing ProviderResult TypeResult StatusGeneric Provider ScanningCV ECHO PROCEDURESFinal Result * (ABNORMAL) Renal Function Panel (05/06/2018 6:45 AM EDT)ComponentValueRef RangeTest MethodAnalysis TimePerformed AtPathologist DatcbwzaeNgrtcdl2440 - 99 mg/dLL[facility] BQSCkydls341479 - 145 mmol/[facility] LABPotassium4.23.5 - 5.3 mmol/L [facility] VKJFztsdtuc45187 - 107 mmol/[facility] KCTLvmpcxnaiml4857 - 32 mmol/[facility] LABAnion Tcn2778 - 20 mmol/[facility] LABUrea Tuzbppuq449 - 23 mg/dLL[facility] LAB Creatinine0.900.50 - 1.30 mg/dLL[facility] LABGLOMERULAR FILTRATION RATE-NON >60>60 mL/min/1.08q9VTUVJ LABGLOMERULAR FILTRATION RATE->60>60 mL/min/1.73t9PYENA LABComment: CALCULATIONS OF ESTIMATED GFR ARE PERFORMED USING THE MDRD STUDY EQUATION FOR THE IDMS-TRACEABLE CREATININE METHODS. CLIN CHEM 2007;53:766-72 Calcium9.28.6 - 10.6 mg/dLL[facility] LABPhosphorus2.92.5 - 4.9 mg/dLL[facility] LABComment: The performance characteristics of phosphorus testing in heparinized plasma have been validated by the individual laboratory site where testing is performed. Testing on heparinized plasma is not approved by the FDA; however, such approval is not necessary. Albumin3.2(L)3.4 - 5.0 g/dLL[facility] LABSpecimen (Source)Anatomical Location / LateralityCollection Method / VolumeCollection TimeReceived Time05/06/2018 6:45 AM EDT05/06/2018 7:19 AM EDT Narrative Authorizing ProviderResult TypeResult StatusSoftlab ConversionLAB BLOOD ORDERABLESFinal ResultPerforming OrganizationAddressCity/State/ZIP CodePhone Number [facility] LAB from Last 3 Months or Most Recently Relevant to Health Maintenance Insurance * Guarantor: Ismael Andrescount TypeRelation to PatientDate of PhoneBilling AddressPersonal/TrzbieSrpw[address] [facility] [address] Care Teams Team MemberRelationshipSpecialtyStart DateEnd Ismael Morales MD [address] [place] [address] PCP - General08/27/17
--- OUTSIDE RECORDS SUMMARY | 2025-08-18 17:41 | XMS_ITS | Encounter Summary ---
Author Organization [facility] Address [address] [facility] [place] [address] Care Team Providers Care Game Farm Supervisor Name Role Phone Ismael Morales MD Unavailable [phone] Ismael Morales MD Primary Care Provider Saúl Wiggins MD Unavailable [phone] Harish Floyd MD Unavailable [phone] Jelly Stokes LPN Unavailable [phone] Encounter Details DateTypeDepartmentCare Team (Latest Contact Info)Xvuanqeptry21/12/2025Orders Only [facility] [address] [facility] [address] [place] [address] Unallocated, Noms Provider, [address] [place] [address] Social History Tobacco UseTypesPacks/DayYears UsedDateSmoking Tobacco: Every DayCigarettes Started: 1975 Comments:5-7 cigarettes a da y Alcohol UseStandard Drinks/WeekCommentsNot Currently0 (1 standard drink = 0.6 oz pure alcohol)caffeine; 6 cups of coffee per dayPHQ-2AnswerDate RecordedPatient Health Questionnaire-2 Atage989Sex and Gender InformationValueDate RecordedSex Assigned at BirthNot on fileLegal TeuQopf3211/08/2022 6:34 PM EDT Gender IdentityNot on fileSexual OrientationNot on fileOccupationIndustryJob Start DateJob 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, engineerNot on fileNot on fileNot on file documented as of this encounter Plan of Treatment DateTypeDepartmentCare Team (Latest Contact Info)Gdojbjgclao26/23/2026 4:00 PM ESTOffice Visit [facility] [place] [facility] [address] [place] [address] documented as of this encounter Procedures Procedure NamePriorityDate/TimeAssociated DiagnosisCommentsTROPONIN T, HIGH VAQPBJGCSSUVwruopx59/09/2025 1:59 PM ESTCBC WITH AUTO DIFFERENTIALRoutine 08/04/2025 1:59 PM ESTB-TYPE NATRIURETIC ZZDFXTZVxfhbzi26/09/2025 1:59 PM EST BASIC METABOLIC MOLFBNawjlzi66/09/2025 1:59 PM ESTTROPONIN T, HIGH SENSITIVITY Ithkklv3208/03/2025 1:58 PM ESTCBC WITH AUTO HSANNAQLOUOYSojisdr85/08/2025 1:58 PM ESTPROTHROMBIN TIME-CSRJxywgnb59/08/2025 1:58 PM ESTB-TYPE NATRIURETIC PEPTIDE Yefpoqv5908/03/2025 1:58 PM SQCYPMWCASKFBufgyob55/08/2025 1:58 PM ESTCOMPREHENSIVE METABOLIC EQJKGMgcdrnb54/08/2025 1:58 PM ESTdocumented in this encounter Results * CBC auto differential (08/04/2025 1:59 PM EST)Specimen (Source)Anatomical Location / LateralityCollection Method / VolumeCollection TimeReceived Time BloodVenous blood specimen / Unknown Narrative Authorizing ProviderResult TypeResult StatusAndrei OpUNC Health CaldwellLAB BLOOD ORDERABLES Final Result * Basic metabolic [...] MD [address] [place] [address] PCP - Devoted08/27/20 Ismael Morales MD [address] [place] [address] PCP - GeneralInternal Medicine01/18/23 Saúl Wiggins MD [address] [facility] [address], [address] [place] [address] Referring PhysicianCardiology09/24/24 Harish Floyd MD [facility] [place] [address] Referring PhysicianPodiatr09/24/24 Jelly Stokes LPN [address] [place] [address] Licensed Practical NurseFamily Medicine09/24/24 Sofía Bedolla OD Ophthalmology09/12/23documented as of this encounter
--- OUTSIDE RECORDS SUMMARY | 2025-08-18 17:41 | XMS_ITS | Encounter Summary ---
Author Organization [facility] Address [address] [place] [address] Care Team Providers Care Service Parts Driver Name Role Phone Ismael Morales MD Unavailable [phone] Ismael Morales MD Primary Care Provider [phone] Saúl Wiggins MD Unavailable Harish Floyd MD Unavailable [phone] Jelly Stokes LPN Unavailable [phone] Encounter Details DateTypeDepartmentCare Team (Latest Contact Info)Uoprmlbvehb78/23/2025Patient Outreach [facility] [address] [place] [address] Jelly Stokes LPN [address] [place] [address] Social History Tobacco UseTypesPacks/DayYears UsedDateSmoking Tobacco: Every DayCigarettes Started: 1975 Comments:5-7 cigarettes a da y Alcohol UseStandard Drinks/WeekCommentsNot Currently0 (1 standard drink = 0.6 oz pure alcohol)caffeine; 6 cups of coffee per dayPHQ-2AnswerDate RecordedPatient Health Questionnaire-2 Unorm340Sex and Gender InformationValueDate RecordedSex Assigned at BirthNot on fileLegal IcvFlzq1211/08/2022 6:34 PM EDT Gender IdentityNot on fileSexual OrientationNot on fileOccupationIndustryJob Start DateJob 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 <August 18, 2025, 15:08 - Jelly Stokes LPN> Report scanned into chart. * Jelly Stokes LPN - 08/18/2025 2:00 PM EST Images from the original note were not included. Flowsheet Row Patient Outreach from 08/18/2025 in [facility] with Jelly Stokes LPN Hospital Information ED, Hospital or Residential Facility Discharge? ED Patient has been contacted within 2 days of being seen in the ED Yes Diagnosis CHF, SHORTNESS OF BREATH, A-FIB Discharge Date 08/19/25 Discharged To: Home Setting Discharge Hospital [facility] Engagement Call Start Time 1533 Admission Date 08/17/25 Medications Discharge medications reviewed and reconciled from hospital? Not applicable [NO NEW MEDICATION] Does the patient have all medications ordered at discharge? Not applicable Nursing Interventions No intervention needed Is the patient taking all medications as directed (includes completed medication regime)? Yes Appointments Does the patient have a primary care provider? Yes Self Management Patient Teaching Does the patient have access to their discharge instructions? Yes What is the patient's perception of their health status since discharge? Same Wrap Up Wrap Up Additional Comments CTA CHEST, ECG, LABS, CXR Call End Time 1540 Pt presented to the ER with worsening shortness of breath. Pulse ox was in the 80s and patient was placed on oxygen. The hospital wanted to transfer him to a larger hospital but he refused. They offered admission to the [facility] and he also refused. Pt left the ER AMA. I spoke with pt today and he wanted PCP to order home O2. I advised pt that we would need a face to face and that our office is closed until the . Advised pt to return to the ER and accept admission. I offered to call an ambulance for him and he declined stating he will reach out to his brother for transportation. * Tegan Melvin NP - 08/18/2025 2:00 PM EST Yes due to the holiday ER is best advice. Unfortunately when I saw him last for HFU he did not wantto take the medications as prescribed and said he would monitor things. I hope he is not in CHF again. Ok to follow up once discharged. documented in this encounter Plan of Treatment DateTypeDepartmentCare Team (Latest Contact Info)Nwjkxxyejra36/23/2026 4:00 PM ESTOffice Visit [facility] [address] [place] [address] documented as of this encounter Visit Diagnoses Diagnosis Chronic obstructive pulmonary disease, unspecified COPD type (HCC)- Primary Chronic systolic congestive heart failure (HCC) documented in this encounter Care Teams Team MemberRelationshipSpecialtyStart DateEnd Date Ismael Morales MD [address] [place] [address] PCP - Devoted08/27/20 Ismael Morales MD [address] [place] [address] PCP - GeneralInternal Medicine01/18/23 Saúl Wiggins MD [address] [facility] [address] [place] [address] Referring PhysicianCardiology09/24/24 Harish Floyd MD [facility] [place] [address] Referring PhysicianPodiatr09/24/24 Jelly Stokes LPN [address] [place] [address] Licensed Practical NurseFamily Medicine09/24/24 Sofía Bedolla, OD Ophthalmology09/12/23documented as of this encounter
--- OUTSIDE RECORDS SUMMARY | 2025-08-18 17:41 | XMS_ITS | Encounter Summary ---
Author Organization [facility] Address [address] [facility] [place] [address] Care Team Providers Care Supervisor Aluminum Fabrication Name Role Phone Ismael Morales MD Unavailable [phone] Ismael Morales MD Primary Care Provider Saúl Wiggins MD Unavailable [phone] Harish Floyd MD Unavailable [phone] Jelly Stokes LPN Unavailable [phone] Encounter Details DateTypeDepartmentCare Team (Latest Contact Info)Oksxdldbbmm73/23/2025Orders Only [facility] [address] [facility] [address] [place] [address] Unallocated, Noms Provider, [address] [place] [address] Social History Tobacco UseTypesPacks/DayYears UsedDateSmoking Tobacco: Every DayCigarettes Started: 1975 Comments:5-7 cigarettes a da y Alcohol UseStandard Drinks/WeekCommentsNot Currently0 (1 standard drink = 0.6 oz pure alcohol)caffeine; 6 cups of coffee per dayPHQ-2AnswerDate RecordedPatient Health Questionnaire-2 Mtaia351Sex and Gender InformationValueDate RecordedSex Assigned at BirthNot on fileLegal XmjDikj2311/08/2022 6:34 PM EDT Gender IdentityNot on fileSexual OrientationNot on fileOccupationIndustryJob 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 DateJob 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, 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 on fileNot on fileNot on file documented as of this encounter Plan of Treatment DateTypeDepartmentCare Team (Latest Contact Info)Ybujzvvteqe15/23/2026 4:00 PM ESTOffice Visit [facility] [place] [facility] [address] [place] [address] documented as of this encounter Procedures Procedure NamePriorityDate/TimeAssociated DiagnosisCommentsXR CHEST 1 VIEW Bkynipf5908/17/2025 8:32 AM ESTdocumented in this encounter Results * XR chest 1 view (08/17/2025 8:32 AM EST)Anatomical RegionLateralityModality ChestRadiographic Imaging Narrative Authorizing ProviderResult TypeResult StatusNoms Provider Unallocated MDIMG XR PROCEDURESFinal Result documented in this encounter Visit Diagnoses Not on filedocumented in this encounter Care Teams Team MemberRelationshipSpecialtyStart DateEnd Date Ismael Morales MD [address] [place] [address] PCP - Devoted08/27/20 Ismael Morales MD [address] [place] [address] PCP - GeneralInternal Medicine01/18/23 Saúl Wiggins MD [address] [facility] [address] [place] [address] Referring PhysicianCardiology09/24/24 Harish Floyd MD [facility] [place] [address] Referring PhysicianPodiatr09/24/24 Jelly Stokes LPN [address] [place] [address] Licensed Practical NurseFamily Medicine09/24/24 Sofía Demos, OD Ophthalmology09/12/23documented as of this encounter
--- OUTSIDE RECORDS SUMMARY | 2025-08-18 17:41 | XMS_ITS ---
Author Organization [facility] Address [address] [facility] [place] [address] Care Team Providers Care Palletiser Operator Name Role Phone Ismael Morales MD Unavailable [phone] Ismael Morales MD Primary Care Provider [phone] Saúl Wiggins MD Unavailable [phone] Harish Floyd MD Unavailable [phone] Jelly Stokes LPN Unavailable [phone] Emergency Department Transitional Care Management (TCM) Status:Closed (Closed) Start date:08/18/2025 Enrollment date:08/18/2025 Enrollment reason:Identified using discharge data End date:08/18/2025 Close reason:Actively enrolled in CCM Overview Discharged from [facility] ER on 08/18. Please contact within 2 days of discharge for ERTOC and schedule a follow-up appointment if needed. Continued Care and Services Coordination
--- OUTSIDE RECORDS SUMMARY | 2025-08-18 17:41 | XMS_ITS ---
Author Organization [facility] Address [address] [facility] [place] [address] Care Team Providers Care Building Surveyor Name Role Phone Ismael Morales MD Unavailable [phone] Ismael Morales MD Primary Care Provider [phone] Saúl Wiggins MD Unavailable [phone] Harish Floyd MD Unavailable [phone] Jelly Stokes LPN Unavailable [phone] Inpatient Discharge Transitional Care Management (TCM) Status:Closed (Closed) Start date:08/05/2025 Enrollment date:08/07/2025 Enrollment reason:Identified using discharge data End date:08/07/2025 Close reason:Actively enrolled in CCM Overview Patient discharged from [facility] on 08/05. Please contact for hospital TOCand schedule follow-up appointment within 7-14 days. <August 07, 2025, 12:23 - Crystal Perez MA> Pt seen in office for HFU. No JORJE needed at this time. Continued Care and Services Coordination
--- OUTSIDE RECORDS SUMMARY | 2025-08-18 17:41 | XMS_ITS | Encounter Summary ---
Author Organization [facility] Address [address] [place] [address] [place] [address] Care Team Providers Care Scudding Inspector Name Role Phone Ismael Morales MD Unavailable [phone] Ismael Morales MD Primary Care Provider [phone] Saúl Wiggins MD Unavailable [phone] Harish Floyd MD Unavailable [phone] Jelly Stokes LPN Unavailable [phone] Encounter Details DateTypeDepartmentCare Team (Latest Contact Info)Ouocbrcypgy10/12/2025Travel Social History Tobacco UseTypesPacks/DayYears UsedDateSmoking Tobacco: Every DayCigarettes Started: 1975 Comments:5-7 cigarettes a da y Alcohol UseStandard Drinks/WeekCommentsNot Currently0 (1 standard drink = 0.6 oz pure alcohol)caffeine; 6 cups of coffee per dayPHQ-2AnswerDate RecordedPatient Health Questionnaire-2 Qlzyj565Sex and Gender InformationValueDate RecordedSex Assigned at BirthNot on fileLegal MwyOpki9811/08/2022 6:34 PM EDT Gender IdentityNot on fileSexual OrientationNot on fileOccupationIndustryJob 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 DateJob 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, 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 on fileNot on fileNot on file documented as of this encounter Plan of Treatment DateTypeDepartmentCare Team (Latest Contact Info)Ocbalmvfbdc60/23/2026 4:00 PM ESTOffice Visit [facility] [place] [facility] [address] [facility] [address] [place] [address] documented as of this encounter Visit Diagnoses Not on filedocumented in this encounter Care Teams Team MemberRelationshipSpecialtyStart DateEnd Date Ismael Morales MD [address] [place] [address] PCP - Devoted08/27/20 Ismael Morales MD [address] [place] [address] PCP - GeneralInternal Medicine01/18/23 Saúl Wiggins MD [address] [facility] [address] [place] [address] Referring PhysicianCardiology09/24/24 Harish Floyd MD [facility] [place] [address] Referring PhysicianPodiatr09/24/24 Jelly Stokes LPN [address] [place] [address] Licensed Practical NurseFamily Medicine09/24/24 Sofía Bedolla OD Ophthalmology09/12/23documented as of this encounter
--- OUTSIDE RECORDS SUMMARY | 2025-08-18 17:41 | XMS_ITS | Encounter Summary ---
Author Organization [facility] Address [address] [place] [address] Phone Care Team Providers Care Cement Tester Assistant Name Role Phone Ismael Morales MD Primary Care Provider [phone] Encounter Details DateTypeDepartmentCare Team (Latest Contact Info)Foqmndxuzdo01/09/2025Scanned Document [facility] [address] [place] [address] Scanning, Generic Provider Social History Tobacco UseTypesPacks/DayYears UsedDateSmoking Tobacco: Every DayCigarettes Smokeless Tobacco: NeverAlcohol UseStandard Drinks/WeekCommentsNever0 (1 standard drink = 0.6 oz pure alcohol)Sex and Gender InformationValueDate RecordedSex Assigned at BirthNot on fileLegal NtzRvny28/25/2022 7:18 PM EST Gender IdentityNot on fileSexual OrientationNot on filedocumented as of this encounter Plan of Treatment DateTypeDepartmentCare Team (Latest Contact Info)Jcvfmhoqsyd59/07/2026 2:30 PM ESTOffice Visit [facility] [address] [facility] [address] [place] [address] Saúl Wiggins MD [address] [facility] [address] [place] [address] documented as of this encounter Visit Diagnoses Not on filedocumented in this encounter Additional Health Concerns AssessmentNoted TimeA fall risk assessment has been completed for the patient 12/26/2024 1:54 PM EDTdocumented as of this encounter Care Teams Team MemberRelationshipSpecialtyStart DateEnd Ismael Morales MD [address] [place] [address] PCP - General08/27/17documented as of this encounter
--- OUTSIDE RECORDS SUMMARY | 2025-08-18 17:41 | XMS_ITS | Patient Health Record ---
Author Organization [facility] Address [facility] [place] [address] Care Team Providers Care Stunt Driver Name Role Phone Ismael Morales MD Primary Care Provider UnavailHarish Byrne Unavailable [phone] Allergies Allergen (clinical drug ingredient) Drug/Non Drug Allergy documented on EMR Reaction Allergy Type Onset Date Status Dye LONGTERM Blue 1UnknownDrug AllergyActivePenicillinUnknownDrug AllergyActive Reason For Referral No Information Medications Medication SIG (Take, Route, Frequency, Duration) Notes Start Date End Date Status Probiotic - Tablet Delayed Release as directed O rally ActivePotassium 99 MG Tablet1 tablet Orally Once a cnoLtpzavFiN44 200 MG Capsule as directed OrallyActiveLasix 40 [...] W/U Status Risk Notes Problem Essential hypertension (91155046 ) Essential (primary) hypertension (I10) ActiveconfirmedProblemRight foot drop (643959264037899)Foot drop, right foot (M21.371)ActiveconfirmedProblemPain in limb (65589990)Pain in right toe(s) (M79.674)ActiveconfirmedProblemPain in limb (92191106)Pain in left toe(s) (M79.675)ActiveconfirmedProblemTinea unguium (665431787)Tinea unguium (B35.1) Activeconfirmed Vital Signs Blood pressure diastolic 94 mm Hg 07/06/2025 Xlkgtx95 in07/06/2025lood pressure wurbasuo243 mm Hg07/06/20256381Xmqjlk987.8 lbs 07/06/2025BMI21.8607/06/2025 Encounters Encounter Location Date Provider [facility] [place] [address] 09/29/2024 Harish Lesnak Pain in left toe(s) M79.675 ; Pain in right toe(s) M79.674 and Tinea unguium B35.1 [facility] [address] [place] [address] 12/29/2024 Harish Lesnak Pain in left toe(s) M79.675 ; Pain in right toe(s) M79.674 and Tinea unguium B35.1 [facility] [address] [place] [address] 03/30/2025 Harish Lesnak Pain in left toe(s) M79.675 ; Pain in right toe(s) M79.674 and Tinea unguium B35.1 [facility] [address] [place] [address] 07/06/2025 Harish Lesnak Pain in left toe(s) [...] Details Provider Name:Harish keene, 10/05/2025 03:30:00 PM, [address] [place] [address] Dr [address], [place], [address], Insurance Providers Payer Name Payer Address Payer Phone Subscriber Number Group Number Insured Name Patient Relationship to Insured Coverage Start Date Coverage End Date [employer] [address] [employer] [place] [phone] [id number] Hermanelf - patient is the insured Medical (General) History Medical History History ICD Code CHF COPDstomach ulcerhigh blood pressurerheumatoid arthritisGERDhiatal hernia fibromyalgiaNeuropathyCKD stage 3pulmonary edemaSurgical History Surgery Date(Month/Year) hernia 05/2021 Abdominal Aortic Aneurysm bowel ktrpimy66/24Hospitalization History Reason Date(Month/Year) SOB 02/2025 see sx hx [id number]
--- OUTSIDE RECORDS SUMMARY | 2025-08-18 17:41 | XMS_ITS | Encounter Summary ---
Author Organization [facility] Address [address] [place] [address] Care Team Providers Care Clinic Assistant Name Role Phone Ismael Morales MD Unavailable [phone] Ismael Morales MD Primary Care Provider [phone] Saúl Wiggins MD Unavailable [phone] Harish Floyd MD Unavailable [phone] Jelly Stokes LPN Unavailable [phone] Reason for Referral * Consultation (Routine) - Pending ReviewSpecialtyDiagnoses / ProceduresReferred By ContactReferred To ContactPulmonary Disease Diagnoses Chronic obstructive pulmonary disease, unspecified COPD type (HCC) Solitary pulmonary nodule Procedures [place] OFFICE/OUTPATIENT [facility] 60 MINUTES Ismael Morales MD [address] [facility] [address] [place] [address] Phone: tel: fax: Georgi Medeiros MD [address] [address] Phone: tel: fax: Referral IDStatusReasonStart DateExpiration DateVisits RequestedVisits [id number] Review Specialty Services Required / Encounter Details DateTypeDepartmentCare Team (Latest Contact Info)Vvszxwrusfz63/22/2025Patient Outreach [facility] POPULATION [facility] [address] [place] [phone] Jelly Stokes LPN [address] [place] [address] Social History Tobacco UseTypesPacks/DayYears UsedDateSmoking Tobacco: Every DayCigarettes Started: 1975 Comments:5-7 cigarettes a da y Alcohol UseStandard Drinks/WeekCommentsNot Currently0 (1 standard drink = 0.6 oz pure alcohol)caffeine; 6 cups of coffee per dayPHQ-2AnswerDate RecordedPatient Health Questionnaire-2 Cobdz717Sex and Gender InformationValueDate RecordedSex Assigned at BirthNot on fileLegal HgbFxyn9011/08/2022 6:34 PM EDT Gender IdentityNot on fileSexual [...] Plan of Treatment DateTypeDepartmentCare Team (Latest Contact Info)Jbbjfjafsaa18/23/2026 4:00 PM ESTOffice Visit [facility] [address] [place] [address] NameTypePriorityAssociated DiagnosesOrder ScheduleAmbulatory referral to PulmonologyOutpatient ReferralRoutine Chronic obstructive pulmonary disease, unspecified COPD type (HCC) Solitary pulmonary nodule Expected: 08/17/2025 (Approximate), Expires: 02/15/2026documented as of this encounter Visit Diagnoses Diagnosis Chronic obstructive pulmonary disease, unspecified COPD type (HCC)- Primary Solitary pulmonary nodule documented in this encounter Care Teams Team MemberRelationshipSpecialtyStart DateEnd Date Ismael Morales MD [address] [place] [address] PCP - [facility]08/27/20 Ismael Morales MD [address] [place] [address] PCP - GeneralInternal Medicine01/18/23 Saúl Wiggins MD [address] [facility] [place] [address] Referring PhysicianCardiology09/24/24 Harish Floyd MD [facility] [place] [address] Referring PhysicianPodiatr09/24/24 Jelly Stokes LPN [address] [place] [address] Licensed Practical NurseFamily Medicine09/24/24 Sofía Bedolla OD Ophthalmology09/12/23documented as of this encounter
--- OUTSIDE RECORDS SUMMARY | 2025-08-18 17:41 | XMS_ITS | Encounter Summary ---
Author Organization [facility] Address [address] [place] [address] Phone Care Team Providers Care B And B Gang Worker Name Role Phone Ismael Morales MD Primary Care Provider [phone] Encounter Details DateTypeDepartmentCare Team (Latest Contact Info)Vienbbtltbe1942canned Document [facility] [address] [place] [id number] Scanning, Generic Provider Social History Tobacco UseTypesPacks/DayYears UsedDateSmoking Tobacco: Never AssessedSex and Gender InformationValueDate RecordedSex Assigned at BirthNot on fileLegal Sex Male07/21/2022 7:18 PM ESTGender IdentityNot on fileSexual OrientationNot on filedocumented as of this encounter Plan of Treatment DateTypeDepartmentCare Team (Latest Contact Info)Uzxtsvibflo02/07/2026 2:30 PM ESTOffice Visit [facility] [address] [facility] [address] [place] [address] Saúl Wiggins MD [address]03 [facility] [address] [place] [address] documented as of this encounter Visit Diagnoses Not on filedocumented in this encounter Care Teams Team MemberRelationshipSpecialtyStart DateEnd Date Ismael Morales MD [address] [place] [address] [facility] - General08/27/17documented as of this encounter
--- OUTSIDE RECORDS SUMMARY | 2025-08-18 17:41 | XMS_ITS | Clinical Summary ---
Author Organization [facility] Address [address] [place] [address] Care Team Providers Care Cripple Cutter Name Role Phone Ismael Morales MD Primary Care Provider [phone] Allergies Active AllergyReactionsCriticalityNoted DateCommentsContrast DyeSwellingHigh 11/27/20111819XgmeqryijsaDcitwseb57/02/2012 Medications MedicationSigDispense QuantityRefillsLast FilledStart DateEnd DateStatus citalopram (CELEXA) 20 mg ORAL tablet Take 1 tablet by mouth once daily.ctive Omeprazole 40 mg capsule Take 40 mg by mouth once daily.Active Active Problems ProblemNoted DateDiagnosed DateIron deficiency hsxxev6507/11/2016MGUS (monoclonal gammopathy of unknown significance)12/31/2015PUD (peptic ulcer disease) 12/31/20158912Xqvlastxld03/06/2016Lumbosacral spondylosis without myelopathy 01/03/20129781Frkqsia36/09/2012 Family History Medical HistoryRelationCommentsHeartFatherHypertensionFatherlung cancer [Other] FatherdeceasedCancerMotherHyperlipidemiaMotherdeceasedRelationStatusComments FatherMother Social History Tobacco UseTypesPacks/DayYears UsedDateSmoking Tobacco: Some DaysCigarettes Alcohol UseStandard Drinks/WeekCommentsNo0 (1 standard drink = 0.6 oz pure alcohol)Sex and Gender InformationValueDate RecordedSex Assigned at BirthNot on fileLegal CgyNxgr39/02/2012 8:08 AM ESTGender IdentityNot on fileSexual OrientationNot on fileOccupationIndustryJob Start DateJob End DatesupervisorNot on fileNot on fileNot on file Last Filed Vital Signs Vital SignReadingTime TakenCommentsBlood Zxkoitrq243/9101/17/2017 4:30 PM EDT Vxbbr356301/17/2017 4:30 PM QHSAddrmewigqc99.6 ??C (97.8 ??F)01/17/2017 4:30 PM EDTRespiratory Majd773101/17/2017 4:30 PM EDTOxygen Ajcnwvvopa25%01/09/2017 2:59 PM EDTInhaled Oxygen Concentration--Vdyenb57.1 kg (170 lb)01/09/2017 2:59 PM EDT Faudrp097.1 cm (5' 7.76 )01/09/2017 2:59 PM EDTBody Mass Index26.03001/09/2017 2:59 PM EDT Plan of Treatment Health MaintenanceDue DateLast DoneCommentsAnxiety Oxllhtfgb74/28/1960Depression Wqkrjiqjq31/28/1960DTaP,Tdap,Td Vaccine (1 - Tdap)1Pneumococcal Vaccine: 50+ (1 of 1 - PCV)02/22/1992Shingrix Vaccine (1 of 2)02/22/1992RSV Vaccine (1 - 1-dose 75+ series)2017Diabetes Kqwokmtme83 Advance Directive Bleqpgegnk29/01/2025Covid-19 Vaccine (1 - season) 2025Influenza Vaccine (#1)2025 Procedures Procedure NamePriorityDate/TimeAssociated DiagnosisCommentsCOMPREHENSIVE METABOLIC OABHULssdpwv43/06/2016 3:03 PM EDT MGUS (monoclonal gammopathy of unknown significance) from Last 3 Months or Most Recently Relevant to Health Maintenance Results * COMP METABOLIC PANEL (12/31/2015 3:03 PM EDT)ComponentValueRef RangeTest MethodAnalysis TimePerformed AtPathologist SignatureProtein, Total7.26.0 - 8.4 g/dL01/01/2016 2:58 AM [facility]ORYAlbumin4.23.5 - 5.0 g/dL01/01/2016 2:58 AM [facility] LABORATORYCalcium9.38.5 - 10.5 mg/dL01/01/2016 2:58 AM [facility] LABORATORYBilirubin, Total0.20.0 - 1.5 mg/dL01/01/2016 2:58 AM [facility] Alkaline Igbkrduqsoi6630 - 150 U/L01/01/2016 2:58 AM [facility] RAXDPAWAYNKGE506 - 40 U/L01/01/2016 2:58 AM [facility] FYGSJRGJABEmgfkuj1948 - 100 mg/dL01/01/2016 2:58 AM [facility] ZHOBELLAKSNDL4317 - 25 mg/dL01/01/2016 2:58 AM [facility] LABORATORYCreatinine1.190.70 - 1.40 mg/dL01/01/2016 2:58 AM [facility] WAEMBQIEDDYtaglj570119 - 146 mmol/L01/01/2016 2:58 AM [facility] LABORATORYPotassium4.73.5 - 5.0 mmol/L01/01/2016 2:58 AM [facility] IWDUUSJCLIWwpuvapt0632 - 110 mmol/L01/01/2016 2:58 AM [facility] TUKXUQOQPRBH75948 - 32 mmol/L01/01/2016 2:58 AM [facility] LABORATORYAnion Wva790 - 15 mmol/L01/01/2016 2:58 AM [facility] UEHFBNWFFXDHK796 - 50 U/L01/01/2016 2:58 AM [facility] LABORATORYeGFR->6005 2:58 AM [facility] MA[facility] LABORATORYeGFR-All Other Races60.01/01/2016 2:58 AM [facility] MA[facility] LABORATORYComment: eGFR (Estimated GFR) Units [...] [place] MDLABORATORY Final ResultPerforming OrganizationAddressCity/State/ZIP CodePhone Number [facility] [address] [place] [address] from Last 3 Months or Most Recently Relevant to Health Maintenance Insurance Care Teams Team MemberRelationshipSpecialtyStart DateEnd Ismael Hernandez MD [address] [address] PCP - GeneralInternal Medicine10/09/11
--- OUTSIDE RECORDS SUMMARY | 2025-08-18 17:41 | XMS_ITS | Encounter Summary ---
Author Organization [facility] Address [address] [facility] [place] [address] Care Team Providers Care Magazine Filler Name Role Phone Ismael Morales MD Unavailable [phone] Ismael Morales MD Primary Care Provider [phone] Saúl Wiggins MD Unavailable [phone] Harish Floyd MD Unavailable [phone] Jelly Stokes LPN Unavailable [phone] Encounter Details DateTypeDepartmentCare Team (Latest Contact Info)Swolbfwdspl27/19/2025Telephone [facility] [address] [facility] [address] [place] [phone] Miguel Land MA Social History Tobacco UseTypesPacks/DayYears UsedDateSmoking Tobacco: Every DayCigarettes Started: 1975 Comments:5-7 cigarettes a da y Alcohol UseStandard Drinks/WeekCommentsNot Currently0 (1 standard drink = 0.6 oz pure alcohol)caffeine; 6 cups of coffee per dayPHQ-2AnswerDate RecordedPatient Health Questionnaire-2 Ibdji428Sex and Gender InformationValueDate RecordedSex Assigned at BirthNot on fileLegal QhgBhfb7211/08/2022 6:34 PM EDT Gender IdentityNot on fileSexual [...] that may be a good idea. -Tegan BOAT FINISHER Patient informed of the below information documented in this encounter Plan of Treatment DateTypeDepartmentCare Team (Latest Contact Info)Ygpfbndvezp96/23/2026 4:00 PM ESTOffice Visit [facility] [address] [place] [address] documented as of this encounter Visit Diagnoses Not on filedocumented in this encounter Care Teams Team MemberRelationshipSpecialtyStart DateEnd Ismael Morales MD [address] [facility] [address] [place] [address] PCP - [facility]08/27/20 Ismael Morales MD [address] [facility] [address] [place] [address] PCP - GeneralInternal Medicine01/18/23 Saúl Wiggins MD 703 [facility] [address] [place] [address] Referring PhysicianCardiology09/24/24 Harish Floyd MD [facility] [place] [address] Referring PhysicianPodiatr09/24/24 Jelly Stokes LPN [address] [place] [address] Licensed Practical NurseFamily Medicine09/24/24 Sofía Bedolla OD Ophthalmology09/12/23documented as of this encounter
[2025-08-18 18:19] LABS: Hematocrit 44.2 % (42.0-54.0); Hemoglobin 13.7 g/dL (14.0-18.0); Immature Granulocytes Abs Auto 0.04 10^3/uL (0.00-0.03); Immature Granulocytes Pct Auto 0.7 % (0.0-0.5); Lymphocytes Absolute Auto 0.9 10^3/uL (1.2-3.8); Mean Corpuscular HGB Conc 31.0 g/dL (29.9-35.2); Mean Corpuscular Hemoglobin 28.5 pg (25.9-34.0); Mean Corpuscular Volume 91.9 fL (80.0-94.0); Platelet Count 100 10^3/uL (150-450); Red Blood Count 4.81 10^6/uL (4.70-6.10); White Blood Count 5.8 10^3/uL (4.0-11.0)
[2025-08-18 18:26] LABS: Alanine Aminotransferase 14 U/L (16-63); Albumin Globulin Ratio 0.9; Albumin Level 3.6 g/dL (3.4-5.0); Alkaline Phosphatase 99 U/L (46-116); Anion Gap 12.5; Aspartate Amino Transferase 30 U/L (15-37); Blood Urea Nitrogen 29.0 mg/dL (7.0-18.0); Calcium 9.5 mg/dL (8.5-10.1); Carbon Dioxide 33.2 mmol/L (21.0-32.0); Chloride 98 mmol/L (98-107); Estimated GFR (African America 60 (>=60 mL/min/1.73m^2); Estimated GFR (Non-African Ame 49 (>=60 mL/min/1.73m^2); Globulin 4.0 g/dL; Glucose 99 mg/dL (74-106); Potassium 4.7 mmol/L (3.5-5.1); Sodium 139 mmol/L (136-145); Total Protein 7.6 g/dL (6.4-8.2)
--- NOTE | 2025-08-18 18:42 | XR_ITS ---
[address] [address] Patient Name: SUGAR ACUÑA MRN: [id number] date: 1940 Sex: M Assigned Patient Location: ER Current Patient Location: ER Accession/Order Number: [id number] Exam Date: 08/18/2025 18:52 Report Date: 08/18/2025 19:16 At the request of: EDITA SIMEON Procedure: XR chest 1V Plain film chest Single view HISTORY: Shortness of breath COMPARISON: None FINDINGS: SUPPORT DEVICES: None POSTSURGICAL CHANGES: None HEART: Cardiomegaly PULMONARY BIRGIT: Within normal limits MEDIASTINUM: Unremarkable LUNGS AND PLEURA: No acute lung process, pleural effusion or pneumothorax identified. Hyperinflation BONY STRUCTURES: Intact ADDITIONAL FINDINGS None XR/XR chest 1V IMPRESSION: No acute process. Impression dictated by: Zoltan Kumar M.D. 08/18/2025 7:16 PM Dictation Location: [employer] Electronically authenticated by: [id number] Y Date: 08/18/2025 19:16
[2025-08-18] MEDS: DILTIAZEM HCL 25 MG/5 ML VIAL 10 MG IV (19:13)
--- NOTE | 2025-08-18 19:15 | PC.NURSE ---
assumed care for this pt
--- NOTE | 2025-08-18 19:40 | ED.GENADUL1 ---
Documented by User: BLANCO Martinez 08/18/25 22:01 HPI HPI - General Adult General Chief complaint: Shortness of Breath/Dyspnea Stated complaint: SHORTNESS OF BREATH Time Seen by Provider: 08/18/25 17:40 Source: patient Mode of arrival: walk-in Limitations: no limitations History of Present Illness HPI narrative: Patient is an 85-year-old male with a PMH of CHF, COPD, CAD, HTN, A-fib, and repaired AAA that returns to the emergency department with complaints of shortness of breath for about 5 days now, worse in the last 2 days. He was here yesterday with concerns that he had influenza as he has had sick contacts, his COVID-19 and influenza A/B were negative and CTA of the chest was negative for PNA but did have another finding. 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 There is also right lateral distal descending thoracic aortic protrusion or bulge noted measuring 2.7 cm in diameter with moderate volume noncalcified plaque within the aneurysm and ectatic ascending thoracic aorta segment up to 4 cm with no pneumothorax, no mediastinum, no adenopathy and no hematoma. He did leave AGAINST MEDICAL ADVICE yesterday after transfer was recommended as he wanted to be home for [place]. After more thought given today he states that he is not sleeping well, has no appetite, and is having limitations with activities of daily living given his intermittent SOB. 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 Related Data Home Medications ?Medication ?Instructions ?Recorded ?Confirmed nitroglycerin 0.4 mg sublingual 0.4 mg sublingual Q5M 03/18/24 08/18/25 tablet pantoprazole 40 mg tablet,delayed 40 mg PO DAILY 03/18/24 08/18/25 release (Protonix) paroxetine HCl 30 mg tablet 30 mg PO QAM 02/13/25 08/18/25 albuterol sulfate 90 mcg/actuation 2 puff inhalation Q4H PRN 08/03/25 08/18/25 aerosol inhaler bronchospasm furosemide 20 mg tablet 20 mg PO DAILY 08/03/25 08/18/25 levalbuterol HCl 1.25 mg/3 mL 1.25 mg inhalation Q6H PRN 08/03/25 08/18/25 solution for nebulization shortness of breath or wheezing metoprolol succinate 50 mg 50 mg PO DAILY 08/03/25 08/18/25 tablet,extended release 24 hr potassium chloride 10 mEq 10 meq PO DAILY PRN hypokalemia 08/03/25 08/18/25 tablet,extended release(part/cryst) Allergies Allergy/AdvReac Type Severity Reaction Status Date / Time Iodinated Contrast Media Allergy Intermediate Rash Verified 08/17/25 21:03 Penicillins Allergy Intermediate Rash Verified 08/17/25 21:03 Opioid HPI Opioid Management Most Recent Opioid Data: Last Pain Scale 8 03/18/24, 17:43 Review of Systems ROS Status of ROS 10 or more systems reviewed and unremarkable except as noted in history and below PFSH PFS Medical History (Updated 08/18/25 @ 22:00 by BLANCO Martinez) Heart failure ?I50.9 - Heart failure, unspecified (ICD-10) COPD (chronic obstructive pulmonary disease) ?J44.9 - Chronic obstructive pulmonary disease, unspecified (ICD-10) History of chronic back pain ?Z87.39 - Personal history of other diseases of the musculoskeletal system and connective tissue (ICD-10) History of diverticulosis ?Z87.19 - Personal history of other diseases of the digestive system (ICD-10) History of asthma ?Z87.09 - Personal history of other diseases of the respiratory system (ICD-10) History of depression ?Z86.59 - Personal history of other mental and behavioral disorders (ICD-10) Surgical History (Updated 03/18/24 @ 17:12 by Brian Hackett) History of hernia repair ?Z98.890 - Other specified postprocedural states (ICD-10) ?Z87.19 - Personal history of other diseases of the digestive system (ICD-10) History of esophagogastroduodenoscopy (EGD) ?Z98.890 - Other specified postprocedural states (ICD-10) History of colonoscopy ?Z98.890 - Other specified postprocedural states (ICD-10) History of abdominal aortic aneurysm (AAA) repair ?Z98.890 - Other specified postprocedural states (ICD-10) Social History Little interest or pleasure in doing things: not at all Feeling down, depressed, or hopeless: not at all Exam Narrative Exam Narrative: General: No distress, age-appropriate, speaking in full clear sentences. Skin: Warm, dry, no pallor. No rash. Head: Normocephalic, atraumatic. Neck: Supple, non-tender. Eye: Pupils are equal, round and EOMI. No scleral icterus. Ears, Nose, Mouth, and Throat: No nasal mucosal hypertrophy. Oral mucosa is moist, no posterior oropharynx erythema, uvula is mid-line Cardiovascular: Regular Rate and Rhythm without murmur, gallop or rub. Respiratory: No accessory muscle use or respiratory distress. Lungs are clear to auscultation, no wheezing, rales or rhonchi Chest Wall: no tenderness Musculoskeletal: Full ROM of all extremities, no calf or popliteal tenderness GI: Abdomen is soft, non-distended, non tender to palpation. No masses appreciated. No rebound, guarding, or rigidity noted. Well-healed midline scar. Neurological: A&O x4. No cranial nerve dysfunction observed. No truncal ataxia. Moves all extremities. Sensation intact. Psychiatric: Cooperative and interactive. Normal mood and affect. Constitutional Vital Signs, click to edit/add: Last Vital Signs Temp 98.5 F 08/18/25 16:46 Pulse 106 H 08/18/25 21:31 Resp 29 H 08/18/25 21:31 BP 139/82 08/18/25 21:31 Pulse Ox 97 08/18/25 21:31 O2 Del Method Nasal Cannula 08/18/25 18:34 O2 Flow Rate 2 08/18/25 18:34 Documenting provider has reviewed patient's vital signs: yes Course Vital Signs Vital signs: Vital Signs Temperature 98.5 F 08/18/25 16:46 Pulse Rate 122 H 08/18/25 16:46 Respiratory Rate 24 H 08/18/25 16:46 Blood Pressure 131/77 08/18/25 16:46 Pulse Oximetry 92 L 08/18/25 16:46 Oxygen Delivery Method Room Air 08/18/25 16:46 Temperature 98.5 F 08/18/25 16:46 Pulse Rate 106 H 08/18/25 21:31 Respiratory Rate 29 H 08/18/25 21:31 Blood Pressure 139/82 08/18/25 21:31 Pulse Oximetry 97 08/18/25 21:31 Oxygen Delivery Method Nasal Cannula 08/18/25 18:34 Oxygen Delivery Flow Rate 2 08/18/25 18:34 Medical Decision Making MDM Narrative Medical decision making narrative: This is an 85-year-old male with significant cardiac and pulmonary comorbidities including CHF, CAD, COPD, atrial fibrillation, and repaired AAA, who presents with progressive shortness of breath and hypoxia after leaving AMA the prior day despite recommendation for transfer and admission. On arrival today, the patient was initially speaking in full sentences without respiratory distress but was found to be in atrial fibrillation with RVR. EKG showed AF with RVR, chronic RBBB and LAFB, and chronic ST-T abnormalities without acute ischemic changes. Laboratory evaluation demonstrated markedly elevated and rising BNP (11,998 yesterday to 12,803 today), worsening renal function consistent with cardiorenal syndrome, and significantly elevated troponin with plateauing values (42?46 yesterday, 120, 119 today), felt to represent myocardial injury/type 2 NSTEMI in the setting of tachyarrhythmia, heart failure exacerbation, hypoxia, and renal dysfunction rather than acute coronary syndrome. During the ED course, the patient developed an episode of moderate respiratory distress with hypoxia and worsening AF with RVR to the 130s, which improved after IV diltiazem bolus and initiation of a diltiazem drip, with stable blood pressure throughout. CTA chest from yesterday ruled out pulmonary embolism, pneumonia, and dissection but revealed a large thoracoabdominal aortic aneurysm, which is not felt to be the cause of today?s acute decompensation but represents a high-risk comorbidity. Overall, the patient?s presentation is most consistent with acute decompensated heart failure precipitated by atrial fibrillation with RVR, resulting in intermittent hypoxic respiratory failure and demand ischemia. Given ongoing oxygen requirement, arrhythmia requiring IV rate control, rising cardiac biomarkers, worsening renal function, and inability to manage symptoms at home, the patient requires hospital admission for continued cardiac monitoring, IV medications, diuresis, and specialty evaluation. I did speak with patient and he is agreeable to transfer today. I did speak with Dr Wiggins (Cardiology) and Dr. Olsen (Hospitalist) with [facility] and Dr. Olsen believes patient requires a tertiary center with appropriate services given the findings on the CT chest of the large thoracoabdominal aortic aneurysm. Patient had previous AAA abdominal surgery done at [facility] in [place] about 10 years ago. Transferred to was initiated. At this time, 2200, transfer to is still pending, they are going to contact Vascular surgery to see which facility would best serve him. My shift is ended and patient's case was discussed and transferred to Dr. Boswell, disposition pending excepting facility. I, Dr Soria, have reviewed the above progress note and course of action in the ER; agree with the above. I have gone over history and physical, and discussed disposition and treatment plan of the patient with the PA/[employer] FINISHER 1914 patient was transitioned to Dr. Boswell to help manage with Johanna SIMEON. Patient's final disposition and admission/transfer. Critical care time 35 minutes exclusive from separate billable procedures that were performed. The following was considered in the determination of critical care but not limited to the level of medical decision making, intensive cardiac and/or respiratory monitoring, frequent vital sign monitoring, evaluation of laboratory studies, evaluation of radiographic studies, oxygen monitoring, and constant monitoring and speaking to family at bedside Differential Diagnosis Differential Diagnosis: Decompensated CHF, COPD exacerbation, aneurysm related symptoms Lab Data Lab results reviewed: Yes I reviewed the patient's lab results Labs: Lab Results 08/18/25 08/18/25 Range/Units 17:24 19:30 WBC 5.8 (4.0-11.0) 10^3/uL RBC 4.81 (4.70-6.10) 10^6/uL Hgb 13.7 L (14.0-18.0) g/dL Hct 44.2 (42.0-54.0) % MCV 91.9 (80.0-94.0) fL MCH 28.5 (25.9-34.0) pg MCHC 31.0 (29.9-35.2) g/dL RDW 15.7 H (11.0-15.0) % Plt Count 100 L (150-450) 10^3/uL MPV 11.9 (9.5-13.5) fL Neut % (Auto) 66.5 (43.0-75.0) % Lymph % (Auto) 14.7 L (20.5-60.0) % [place] % (Auto) 15.6 H (1.7-12.0) % Eos % (Auto) 2.2 (0.9-7.0) % Baso % (Auto) 0.3 (0.2-2.0) % Neut # (Auto) 3.8 (1.4-6.5) 10^3/uL Lymph # (Auto) 0.9 L (1.2-3.8) 10^3/uL [place] # (Auto) 0.9 H (0.3-0.8) 10^3/uL Eos # (Auto) 0.1 (0.0-0.7) 10^3/uL Baso # (Auto) 0.0 (0.0-0.1) 10^3/uL Abs Immat Gran (auto) 0.04 H (0.00-0.03) 10^3/uL Imm/Tot Granulo (auto) 0.7 H (0.0-0.5) % Sodium 139 (136-145) mmol/L Potassium 4.7 (3.5-5.1) mmol/L Chloride 98 (98-107) mmol/L Carbon Dioxide 33.2 H (21.0-32.0) mmol/L Anion Gap 12.5 BUN 29.0 H (7.0-18.0) mg/dL Creatinine 1.38 H (0.70-1.30) mg/dL Est GFR ( Amer) 60 (>=60 mL/min/1.73m^2) Est GFR (Non-Af Amer) 49 L (>=60 mL/min/1.73m^2) BUN/Creatinine Ratio 21.0 Glucose 99 (74-106) mg/dL Calcium 9.5 (8.5-10.1) mg/dL Total Bilirubin 0.7 (0.2-1.0) mg/dL AST 30 (15-37) U/L ALT 14 L (16-63) U/L Alkaline Phosphatase 99 (46-116) U/L Troponin I High Sens 120.4 H* 119.3 H* (4.0-76.1) pg/mL NT-Pro-B Natriuret Pep 31003.0 H* (<=1800.0) pg/mL Total Protein 7.6 (6.4-8.2) g/dL Albumin 3.6 (3.4-5.0) g/dL Globulin 4.0 g/dL Albumin/Globulin Ratio 0.9 Imaging Data Chest x-ray: Attestation: I have reviewed the pertinent imaging results. Radiologist's impression: ITS Impressions Chest X-Ray 08/18/25 18:42 IMPRESSION: No acute process. Impression dictated by: Zoltan Kumar M.D. 08/18/2025 7:16 PM Dictation Location: [facility] Electronically authenticated by: [id number] Y Date: 08/18/2025 19:16 ECG Data Attestation: ?I have reviewed the pertinent ECG results. Discharge Plan Discharge Patient Disposition: Still a Patient Documented by User: Zoltan Soria MD 08/18/25 22:03 HPI HPI - General Adult General Chief complaint: Shortness of Breath/Dyspnea Stated complaint: SHORTNESS OF BREATH Time Seen by Provider: 08/18/25 17:40 Related Data Home Medications ?Medication ?Instructions ?Recorded ?Confirmed nitroglycerin 0.4 mg sublingual 0.4 mg sublingual Q5M 03/18/24 08/18/25 tablet pantoprazole 40 mg tablet,delayed 40 mg PO DAILY 03/18/24 08/18/25 release (Protonix) paroxetine HCl 30 mg tablet 30 mg PO QAM 02/13/25 08/18/25 albuterol sulfate 90 mcg/actuation 2 puff inhalation Q4H PRN 08/03/25 08/18/25 aerosol inhaler bronchospasm furosemide 20 mg tablet 20 mg PO DAILY 08/03/25 08/18/25 levalbuterol HCl 1.25 mg/3 mL 1.25 mg inhalation Q6H PRN 08/03/25 08/18/25 solution for nebulization shortness of breath or wheezing metoprolol succinate 50 mg 50 mg PO DAILY 08/03/25 08/18/25 tablet,extended release 24 hr potassium chloride 10 mEq 10 meq PO DAILY PRN hypokalemia 08/03/25 08/18/25 tablet,extended release(part/cryst) Allergies Allergy/AdvReac Type Severity Reaction Status Date / Time Iodinated Contrast Media Allergy Intermediate Rash Verified 08/17/25 21:03 Penicillins Allergy Intermediate Rash Verified 08/17/25 21:03 Opioid HPI Opioid Management Most Recent Opioid Data: Last Pain Scale 8 03/18/24, 17:43 PFSH PFSH Medical History (Updated 08/18/25 @ 22:00 by BLANCO Martinez) Heart failure ?I50.9 - Heart failure, unspecified (ICD-10) COPD (chronic obstructive pulmonary disease) ?J44.9 - Chronic obstructive pulmonary disease, unspecified (ICD-10) History of chronic back pain ?Z87.39 - Personal history of other diseases of the musculoskeletal system and connective tissue (ICD-10) History of diverticulosis ?Z87.19 - Personal history of other diseases of the digestive system (ICD-10) History of asthma ?Z87.09 - Personal history of other diseases of the respiratory system (ICD-10) History of depression ?Z86.59 - Personal history of other mental and behavioral disorders (ICD-10) Surgical History (Updated 03/18/24 @ 17:12 by Brian Hackett) History of hernia repair ?Z98.890 - Other specified postprocedural states (ICD-10) ?Z87.19 - Personal history of other diseases of the digestive system (ICD-10) History of esophagogastroduodenoscopy (EGD) ?Z98.890 - Other specified postprocedural states (ICD-10) History of colonoscopy ?Z98.890 - Other specified postprocedural states (ICD-10) History of abdominal aortic aneurysm (AAA) repair ?Z98.890 - Other specified postprocedural states (ICD-10) Social History Little interest or pleasure in doing things: not at all Feeling down, depressed, or hopeless: not at all Exam Constitutional Vital Signs, click to edit/add: Last Vital Signs Temp 98.5 F 08/18/25 16:46 Pulse 106 H 08/18/25 21:31 Resp 29 H 08/18/25 21:31 BP 139/82 08/18/25 21:31 Pulse Ox 97 08/18/25 21:31 O2 Del Method Nasal Cannula 08/18/25 18:34 O2 Flow Rate 2 08/18/25 18:34 Course Vital Signs Vital signs: Vital Signs Temperature 98.5 F 08/18/25 16:46 Pulse Rate 122 H 08/18/25 16:46 Respiratory Rate 24 H 08/18/25 16:46 Blood Pressure 131/77 08/18/25 16:46 Pulse Oximetry 92 L 08/18/25 16:46 Oxygen Delivery Method Room Air 08/18/25 16:46 Temperature 98.5 F 08/18/25 16:46 Pulse Rate 106 H 08/18/25 21:31 Respiratory Rate 29 H 08/18/25 21:31 Blood Pressure 139/82 08/18/25 21:31 Pulse Oximetry 97 08/18/25 21:31 Oxygen Delivery Method Nasal Cannula 08/18/25 18:34 Oxygen Delivery Flow Rate 2 08/18/25 18:34 Medical Decision Making [facility] Narrative Medical decision making narrative: This is an 85-year-old male with significant cardiac and pulmonary comorbidities including CHF, CAD, COPD, atrial fibrillation, and repaired AAA, who presents with progressive shortness of breath and hypoxia after leaving AMA the prior day despite recommendation for transfer and admission. On arrival today, the patient was initially speaking in full sentences without respiratory distress but was found to be in atrial fibrillation with RVR. EKG showed AF with RVR, chronic RBBB and LAFB, and chronic ST-T abnormalities without acute ischemic changes. Laboratory evaluation demonstrated markedly elevated and rising BNP (11,998 yesterday to 12,803 today), worsening renal function consistent with cardiorenal syndrome, and significantly elevated troponin with plateauing values (42?46 yesterday, 120, 119 today), felt to represent myocardial injury/type 2 NSTEMI in the setting of tachyarrhythmia, heart failure exacerbation, hypoxia, and renal dysfunction rather than acute coronary syndrome. During the ED course, the patient developed an episode of moderate respiratory distress with hypoxia and worsening AF with RVR to the 130s, which improved after IV diltiazem bolus and initiation of a diltiazem drip, with stable blood pressure throughout. CTA chest from yesterday ruled out pulmonary embolism, pneumonia, and dissection but revealed a large thoracoabdominal aortic aneurysm, which is not felt to be the cause of today?s acute decompensation but represents a high-risk comorbidity. Overall, the patient?s presentation is most consistent with acute decompensated heart failure precipitated by atrial fibrillation with RVR, resulting in intermittent hypoxic respiratory failure and demand ischemia. Given ongoing oxygen requirement, arrhythmia requiring IV rate control, rising cardiac biomarkers, worsening renal function, and inability to manage symptoms at home, the patient requires hospital admission for continued cardiac monitoring, IV medications, diuresis, and specialty evaluation. I, Dr Soria, have reviewed the above progress note and course of action in the ER; agree with the above. I have gone over history and physical, and discussed disposition and treatment plan of the patient with the PA/[employer] FINISHER 1914 patient was transitioned to Dr. Boswell to help manage with Johanna SIMEON. Patient's final disposition and admission/transfer. Critical care time 35 minutes exclusive from separate billable procedures that were performed. The following was considered in the determination of critical care but not limited to the level of medical decision making, intensive cardiac and/or respiratory monitoring, frequent vital sign monitoring, evaluation of laboratory studies, evaluation of radiographic studies, oxygen monitoring, and constant monitoring and speaking to family at bedside Lab Data Labs: Lab Results 08/18/25 08/18/25 Range/Units 17:24 19:30 WBC 5.8 (4.0-11.0) 10^3/uL RBC 4.81 (4.70-6.10) 10^6/uL Hgb 13.7 L (14.0-18.0) g/dL Hct 44.2 (42.0-54.0) % MCV 91.9 (80.0-94.0) fL MCH 28.5 (25.9-34.0) pg MCHC 31.0 (29.9-35.2) g/dL RDW 15.7 H (11.0-15.0) % Plt Count 100 L (150-450) 10^3/uL MPV 11.9 (9.5-13.5) fL Neut % (Auto) 66.5 (43.0-75.0) % Lymph % (Auto) 14.7 L (20.5-60.0) % [place] % (Auto) 15.6 H (1.7-12.0) % Eos % (Auto) 2.2 (0.9-7.0) % Baso % (Auto) 0.3 (0.2-2.0) % Neut # (Auto) 3.8 (1.4-6.5) 10^3/uL Lymph # (Auto) 0.9 L (1.2-3.8) 10^3/uL [place] # (Auto) 0.9 H (0.3-0.8) 10^3/uL Eos # (Auto) 0.1 (0.0-0.7) 10^3/uL Baso # (Auto) 0.0 (0.0-0.1) 10^3/uL Abs Immat Gran (auto) 0.04 H (0.00-0.03) 10^3/uL Imm/Tot Granulo (auto) 0.7 H (0.0-0.5) % Sodium 139 (136-145) mmol/L Potassium 4.7 (3.5-5.1) mmol/L Chloride 98 (98-107) mmol/L Carbon Dioxide 33.2 H (21.0-32.0) mmol/L Anion Gap 12.5 BUN 29.0 H (7.0-18.0) mg/dL Creatinine 1.38 H (0.70-1.30) mg/dL Est GFR ( Amer) 60 (>=60 mL/min/1.73m^2) Est GFR (Non-Af Amer) 49 L (>=60 mL/min/1.73m^2) BUN/Creatinine Ratio 21.0 Glucose 99 (74-106) mg/dL Calcium 9.5 (8.5-10.1) mg/dL Total Bilirubin 0.7 (0.2-1.0) mg/dL AST 30 (15-37) U/L ALT 14 L (16-63) U/L Alkaline Phosphatase 99 (46-116) U/L Troponin I High Sens 120.4 H* 119.3 H* (4.0-76.1) pg/mL NT-Pro-B Natriuret Pep 19227.0 H* (<=1800.0) pg/mL Total Protein 7.6 (6.4-8.2) g/dL Albumin 3.6 (3.4-5.0) g/dL Globulin 4.0 g/dL Albumin/Globulin Ratio 0.9 Imaging Data Chest x-ray: Radiologist's impression: ITS Impressions Chest X-Ray 08/18/25 18:42 IMPRESSION: No acute process. Impression dictated by: Zoltan Kumar M.D. 08/18/2025 7:16 PM Dictation Location: [place] [address] Electronically authenticated by: [id number] Y Date: 08/18/2025 19:16 Discharge Plan Discharge Patient Disposition: Still a Patient
[2025-08-19] VITALS: PULSE 131
--- NOTE | 2025-08-19 00:52 | PC.NURSE ---
superior ems here for transport to
--- NOTE | 2025-08-19 01:12 | PC.NURSE ---
attempted to call report, message left for nurse to call this RN for report x 2
--- NOTE | 2025-08-19 02:27 | PC.NURSE ---
report called to [facility] Spoke with Lola DAVIS
== END 2025-08-19 01:13 | disposition short-term general hospital (02) ==
PROVIDERS: Physician Assistant; Emergency Provider Emergency Medicine; PCP Internal Medicine
DX: I11.0 Hypertensive heart disease with heart failure (principal); I50.9 Heart failure, unspecified; I71.60 Thoracoabdominal aortic aneurysm, without rupture, unspecified; R06.02 Shortness of breath; I21.A1 Myocardial infarction type 2; J44.9 Chronic obstructive pulmonary disease, unspecified; I25.2 Old myocardial infarction; I48.91 Unspecified atrial fibrillation
CPT/HCPCS: 36415; 71045; 80053; 83880; 84484; 85025; 93005; 96374; 99285